=== PATIENT | female | born 1940 | race Caucasian/White ===

== ENCOUNTER 2016-11-19 13:12 | Inpatient (IN) ==
--- NOTE | 2016-11-19 13:19 | Emergency Department Note ---
Disposition Clinical Impression: Renal insufficiency Fall Qualifiers: Encounter type: initial encounter Qualified Code(s): W19.XXXA - Unspecified fall, initial encounter Disposition: Admitted As Inpatient Condition: Fair Referrals: Ross Resendez DO [Primary Care Provider] - Forms: ED Satisfaction Letter Time of Disposition: 16:11 Fall HPI - General Chief Complaint: ED Fall Stated Complaint: fall, down for 24hrs Time Seen by Provider: 11/19/16 13:15 Source: patient, EMS Mode of arrival: EMS Limitations: age, other Nursing Notes Reviewed: Yes Vital Signs Reviewed: Yes - History of Present Illness HPI Narrative: A 76-year-old was found on the floor today by home health home health was there yesterday left at noon today with back at noon today and found her on the floor. The patient is unable to tell us that she been on the floor all night or when exactly that she fell. She denies pain anywhere. Pt Subjective Complaint: fall Onset (ago): unknown Fall Witnessed: no Place Fall Occurred: home Loss of Consciousness: unsure Prolonged Down Time?: yes (Possibly up to 24 hours) Symptoms Prior to Fall: other (Unknown) Context: unknown Location of injury: other (Denies pain) Associated symptoms (after fall): Reports: denies - Related Data Home Medications Medication Instructions Recorded Confirmed Calcitriol [Rocaltrol] 0.5 mcg PO QAM 04/28/15 01/09/16 Doxepin [Sinequan] 100 mg PO HS 04/28/15 01/09/16 Duloxetine [Cymbalta] 30 mg PO BID 04/28/15 01/09/16 Ergocalciferol (VITAMIN D2) 50,000 unit PO QWEEK MDD unsure of 04/28/15 01/09/16 [Vitamin D2 (50,000 UNIT)] day HydrALAZINE 25 mg PO BID 04/28/15 01/09/16 Nitroglycerin [Nitrostat] 0.4 mg SL AD PRN 04/28/15 01/09/16 Pregabalin [Lyrica] 50 mg PO BID 04/28/15 01/09/16 Ranitidine HCl [Zantac] 150 mg PO BID 04/28/15 01/09/16 Furosemide [Lasix] 20 mg PO DAILY PRN 10/15/15 01/09/16 Mirabegron [Myrbetriq] 50 mg PO DAILY 10/15/15 01/09/16 Tolterodine Tartrate [Detrol] 1 mg PO BID 10/15/15 01/09/16 Ferrous Sulfate [Iron Supplement] 325 mg PO BID 12/23/15 01/09/16 Ipratropium/Albuterol Neb [Duoneb] 3 ml IH Q4HR PRN 12/23/15 01/09/16 Lactobacillus Acidophilus 1 cap PO BID 12/23/15 01/09/16 [Acidophilus] Losartan Potassium [Cozaar] 100 mg PO DAILY 12/23/15 01/09/16 Atorvastatin Calcium [Lipitor] 20 mg PO HS 05/14/16 05/14/16 Sennosides/Docusate Sodium 1 - 2 tab PO DAILY PRN 05/14/16 05/14/16 [Senna-S Tablet] Previous Rx's Medication Instructions Recorded Folic Acid 1 mg PO DAILY #30 tablet 01/10/16 Albuterol Sulfate [Albuterol 2 puff IH Q4HR #1 hfa.aer.ad 09/23/16 Inhaler] HYDROcodone/Acet 5/325 mg [[place] 1 tab PO Q6H PRN #10 tab 09/23/16 5-325 mg] Cyanocobalamin (B-12) [Vitamin B12] 1,000 mcg IM QMONTH #12 vial 11/18/16 Allergies Allergy/AdvReac Type Severity Reaction Status Date / Time clonazepam [From Klonopin] Allergy See Verified 10/15/15 16:47 Comments prasugrel [From Effient] Allergy See Verified 10/15/15 16:47 Comments All systems ED: reviewed and negative except as stated. Constitutional: Denies: fever, chills, weakness, weight change Eyes: Denies: eye pain, eye discharge, vision change ENT ED: Denies: ear pain, throat pain, dental pain, hearing loss, epistaxis, congestion, dysphagia Cardiovascular: Denies: chest pain, palpitations, dyspnea on exertion, edema, syncope Respiratory: Denies: cough, dyspnea, wheezes, hemoptysis, stridor Gastrointestinal: Denies: abdominal pain, nausea, vomiting, diarrhea, constipation, hematemesis, melena, hematochezia Genitourinary: Denies: dysuria, frequency, hematuria, discharge Musculoskeletal: Denies: back pain, neck pain, arthralgia, myalgia Integumentary: Denies: rash, abrasion, lesions Neurological: Denies: headache, weakness, numbness, paresthesias, confusion, abnormal gait, vertigo Psychiatric: Denies: anxiety, depression, suicidal thoughts, homicidal thoughts , auditory hallucinations, visual hallucinations Endocrine: Denies: fatigue Hematological/Lymphatic: Denies: easy bleeding, easy bruising Allergic/Immunologic: Denies: facial swelling, urticaria Fall PMH - Past Medical History Medical history: Reports: hypertension, osteoporosis, renal disease Surgical history: Reports: angioplasty/stent, appendectomy, hysterectomy, other Psychiatric history: Reports: anxiety, depression - Social History Smoking Status: Former smoker Alcohol use: Reports: rarely Drug use: Reports: none Physical Exam - General Limitations: other (Strip dementia not able to give us information other than she does not hurt.) General appearance: alert, in no apparent distress - Head Head exam: atraumatic, normocephalic, normal inspection - Eye Eye exam: Present: normal appearance, PERRL, EOMI - ENT ENT exam: normal exam, normal oropharynx, mucous membranes moist - Neck Neck exam: Present: normal inspection, full ROM, trachea midline - Chest Chest inspection: Present: normal inspection, symmetric chest wall rise - Respiratory Respiratory exam: Present: normal lung sounds bilaterally - Cardiovascular Cardiovascular exam: Present: regular rate, normal rhythm, normal heart sounds - Abdominal Exam Abdominal exam: Present: soft, Non-Tender. Absent: tenderness, distention, guarding, rebound, rigidity - Extremities Exam Extremities exam: Present: normal inspection, full ROM. Absent: tenderness, pedal edema - Expanded Lower Extremity Exam Neurovascular/Tendon exam: Absent: motor deficit, sensory deficit, tendon deficit Gait: observed and normal - Back Exam Back exam: Present: normal inspection, full ROM. Absent: tenderness - Neurological Exam Neurological exam: Present: alert, other (She is not oriented to time place or person) - Psychiatric Psychiatric exam: Present: normal affect, normal mood - Skin Skin exam: Present: warm, dry, intact, normal color Course - Reevaluation(s) Reevaluation #1: 76-year-old of a shunt with some dementia who lives by herself but does have home healthcare the comes in about 6 hours a day who fell yesterday sometime after home health left and they found her on the floor today. Unclear exactly how long she was there on the floor. Her CK is elevated in the 300s. Her creatinine is elevated but in the range of where it normally is. Patient will be admitted social service consult. IV hydration. Time: 16:12 - Consultations Consultation #1: Discussed with Dr. Chapin, admit. Time: 16:12 Vital Signs Temperature 97.5 F L 11/19/16 13:15 Pulse Rate 80 11/19/16 13:15 Respiratory Rate 20 11/19/16 13:15 Blood Pressure 176/117 11/19/16 13:15 O2 Sat by Pulse Oximetry 95 11/19/16 13:15 Temperature 97.5 F L 11/19/16 13:15 Pulse Rate 80 11/19/16 15:12 Respiratory Rate 18 11/19/16 15:12 Blood Pressure 134/86 11/19/16 15:12 O2 Sat by Pulse Oximetry 93 11/19/16 15:12 Oxygen Delivery Oxygen Delivery Room Air Fall - Lab Data Lab results reviewed: Yes I reviewed the patient's lab results. Result diagrams: 11/19/16 13:34 11/19/16 13:34 Lab Results 11/19/16 11/19/16 11/19/16 Range/Units 13:34 13:34 13:34 WBC 9.0 (4.3-11.1) K/mcL RBC 4.30 (3.82-4.97) M/mcL Hgb 13.3 (11.5-15.4) g/dL Hct 42.1 (35.3-44.9) % MCV 97.9 (83.0-100.0) fL MCH 30.9 (28.0-33.3) pg MCHC 31.6 (31.6-35.5) g/dL RDW 13.6 (11.5-14.5) % Plt Count 227 (140-400) K/mcL MPV 11.7 (9.4-12.4) fL Immature Gran % 0.6 (0-4) % Seg Neutrophils % 76.0 % Lymphocytes % 14.5 % Monocytes % 6.1 % Eosinophils % 2.2 % Basophils % 0.6 % Neutrophils # 6.8 (1.6-8.9) K/mcL Lymphocytes # 1.3 (0.6-4.6) K/mcL Monocytes # 0.6 (0.0-1.3) K/mcL Eosinophils # 0.2 (0.0-0.6) K/mcL Basophils # 0.1 (0.0-0.2) K/mcL Platelet Estimate Normal (Normal) Sodium 144 (136-145) mEq/L Potassium 4.4 (3.5-4.5) mEq/L Chloride 104 (98-109) mEq/L Carbon Dioxide 27 (19-29) mEq/L BUN 34 H (7-20) mg/dL Creatinine 2.86 H (0.57-1.11) mg/dL Est GFR ( Amer) 19 L (> 60) Est GFR (Non-Af Amer) 16 L (> 60) BUN/Creatinine Ratio 12 (6-26) Glucose 114 H (70-99) mg/dL Calculated Osmolality 306 H (280-300) Lactic Acid 2.0 (0.5-2.2) mmol/L Calcium 11.7 H (8.6-10.8) mg/dL Creatine Kinase (29-168) Units/L 11/19/16 Range/Units 13:34 WBC (4.3-11.1) K/mcL RBC (3.82-4.97) M/mcL Hgb (11.5-15.4) g/dL Hct (35.3-44.9) % MCV (83.0-100.0) fL MCH (28.0-33.3) pg MCHC (31.6-35.5) g/dL RDW (11.5-14.5) % Plt Count (140-400) K/mcL MPV (9.4-12.4) fL Immature Gran % (0-4) % Seg Neutrophils % % Lymphocytes % % Monocytes % % Eosinophils % % Basophils % % Neutrophils # (1.6-8.9) K/mcL Lymphocytes # (0.6-4.6) K/mcL Monocytes # (0.0-1.3) K/mcL Eosinophils # (0.0-0.6) K/mcL Basophils # (0.0-0.2) K/mcL Platelet Estimate (Normal) Sodium (136-145) mEq/L Potassium (3.5-4.5) mEq/L Chloride (98-109) mEq/L Carbon Dioxide (19-29) mEq/L BUN (7-20) mg/dL Creatinine (0.57-1.11) mg/dL Est GFR ( Amer) (> 60) Est GFR (Non-Af Amer) (> 60) BUN/Creatinine Ratio (6-26) Glucose (70-99) mg/dL Calculated Osmolality (280-300) Lactic Acid (0.5-2.2) mmol/L Calcium (8.6-10.8) mg/dL Creatine Kinase 310 H (29-168) Units/L - Radiology Data Radiology results reviewed: Yes I reviewed the patient's radiology results. Cervical Spine CT 11/19/16 13:16 IMPRESSION: No acute abnormality of the cervical spine. Multilevel degenerative changes, similar to prior exam. D/ / Silvino Avelar MD / Silvino Avelar MD Interpreting Provider: Silvino Avelar MD Chest X-Ray 11/19/16 13:16 IMPRESSION: No evidence for acute cardiopulmonary process. D/ / Silvino Avelar MD / Silvino Avelar MD Interpreting Provider: Silvino Avelar MD Head CT 11/19/16 13:16 IMPRESSION: No acute intracranial abnormality. Old craniotomy changes. D/ / 11/19/2016 15:26:24 Alaina Rees MD / johan Interpreting Provider: Alaina Rees MD - EKG Data EKG attestation: Yes I reviewed and interpreted this EKG. EKG shows normal: sinus rhythm Rate: normal Rhythm: NSR Voltage: c/w LVH Interpretation: nonspecific ST-T wave changes
[2016-11-19 13:47] LABS: Basophils # 0.1 K/mcL (0.0-0.2); Basophils % 0.6 %; Eosinophils # 0.2 K/mcL (0.0-0.6); Eosinophils % 2.2 %; Hematocrit 42.1 % (35.3-44.9); Hemoglobin 13.3 g/dL (11.5-15.4); Immature Granulocytes % 0.6 % (0-4); Lymphocytes # 1.3 K/mcL (0.6-4.6); Lymphocytes % 14.5 %; Mean Corpuscular HGB Conc 31.6 g/dL (31.6-35.5); Mean Corpuscular Hemoglobin 30.9 pg (28.0-33.3); Mean Corpuscular Volume 97.9 fL (83.0-100.0); Mean Platelet Volume 11.7 fL (9.4-12.4); Monocytes # 0.6 K/mcL (0.0-1.3); Monocytes % 6.1 %; Neutrophils # 6.8 K/mcL (1.6-8.9); Platelet Count 227 K/mcL (140-400); Red Cell Distribution Width 13.6 % (11.5-14.5)
[2016-11-19 14:00] LABS: Calcium 11.7 mg/dL (8.6-10.8); Potassium 4.4 mEq/L (3.5-4.5)
[2016-11-19 14:13] LABS: Platelet Estimate Normal (Normal)
[2016-11-19] MEDS ORDERED: 0.9 % Sodium Chloride 1,000 ML IVC SCH (16:15)
--- NOTE | 2016-11-19 17:09 | Internal Med History&Physical ---
Date of Encounter: 11/19/16 Time of Encounter: 16:45 Assessment and Plan (1) Fall Current visit: No Status: Acute Patient was found in floor this morning by home health nurse. It is unknown how long she had been on the floor. Being found. CK is 310. Patient has no apparent injuries. Head CT and a CT spine, and femur x-ray on negative for acute injury. Daughter is aware that patient most likely will have to go back to the long term. She has not made a decision yet as to which one. PT, OT consult Fall precautions Social work consult for discharge planning Patient close to the nurses station Echocardiogram to evaluate for possible syncope. Repeat CK in the morning. Qualifiers: Encounter type: initial encounter Qualified Code(s): W19.XXXA - Unspecified fall, initial encounter (2) Weight loss Current visit: Yes Status: Acute Daughter reports that patient has had approximately 10 pound weight loss over the last 3 weeks. She states that patient feels full all the time and is not eating. Patient is being weighed twice a week by home health. Consult nutrition Consider appetite stimulant CT abdomen pelvis (3) FTT (failure to thrive) in adult Current visit: Yes Status: Acute Plan as above for fall and weight loss. (4) Altered mental status, unspecified Current visit: Yes Status: Chronic Daughter reports the patient has a history of dementia. She states that patient has been hallucinating. She was found on the floor this morning by her home health nurse. Unsure how long patient had been there. She does arouse to verbal stimuli, however, she only arouses briefly and does not answer questions. Daughter states that she has spoken to her briefly but appears to be confused. Qualifiers: Altered mental status type: unspecified Qualified Code(s): R41.82 - Altered mental status, unspecified (5) CKD (chronic kidney disease) stage 4, GFR 15-29 ml/min Current visit: Yes Status: Chronic Creatinine is 2.6, GFR 16. This is baseline for this patient for this year. IV fluids at 75 ml per hour 0.9 normal saline Avoid nephrotoxins Avoid NSAIDs Monitor labs in the morning (6) Murmur, heart Current visit: No Status: Chronic (7) COPD (chronic obstructive pulmonary disease) Current visit: No Status: Chronic No acute exacerbation at this time. Chest x-ray negative for any acute disease. Lungs are clear anteriorly. Room air sats 95% Duonebs scheduled Budesonide nebs scheduled Monitor patient O2 as needed to maintain sats greater than 92% Qualifiers: COPD type: emphysema Emphysema type: unspecified Qualified Code(s): J43.9 - Emphysema, unspecified (8) CAD (coronary artery disease) Current visit: No Status: Chronic Chronic. Continue aspirin and beta sole. Telemetry Qualifiers: Coronary Disease-Associated Artery/Lesion type: [place] artery [place] vs. transplanted heart: rosebud heart Associated angina: without angina Qualified Code(s): I25.10 - Atherosclerotic heart disease of [place] coronary artery without angina pectoris (9) Hypertension Current visit: No Status: Chronic Chronic. Well controlled in inpatient setting. Continue home medications. Vital signs every shift Qualifiers: Hypertension type: essential hypertension Qualified Code(s): I10 - Essential (primary) hypertension (10) DVT prophylaxis Current visit: No Status: Acute Heparin subcutaneous MIQUEL velazco Internal Medicine - H&P: HPI Admitted From: Home Plans for Post Hospital Care: Transfer [facility] Care History of present illness: Ms. Benavides is a 76 year old female with a history of a heart murmur, COPD, CKD, CAD, craniotomy due to head bleed, hypertension. Patient was found in the floor today by home health nurse. Daughter was at bedside and relates all of history. She said that patient has insomnia stays up most of the night. Patient had a femur x-ray CT of the C-spine and head CT were all negative for acute injury. Patient does not appear to have any bruising or injuries immediately apparent. Patient is drowsy but awakens very briefly to verbal stimuli and then falls immediately back to sleep. Monitor is normal sinus rhythm with occasional PVCs rate 82 [place] is 95% on room air, respirations are 20, blood pressure is 123/80. Patient has been going to the cancer Center recently for B12 infusions, and was told that if she did not start feeling better and her labs improved, she was going to have a bone marrow biopsy. Daughter says that she will not consent to that. Daughter reports for the last couple of months patient has been declining mentally and has been having hallucinations. She says it patient constantly feels full and is not eating as much, she has had a 3 pound weight loss every week for the last 3 weeks. She does have home health and is being followed closely by them and at the cancer center. Past Med Surg Social Fam HX - Past Medical History Medical history: hypertension, osteoporosis, renal disease Psychiatric history: anxiety, depression - Past Surgical History Surgical History: angioplasty/stent, appendectomy, hysterectomy, other - Social History Smoking Status: Former smoker Smokeless Tobacco Status: No Alcohol use: rarely Drug use: none Internal Medicine - H&P: Meds Calcitriol [Rocaltrol] 0.5 mcg PO QAM 04/28/15 [History] Ergocalciferol (VITAMIN D2) [Vitamin D2 (50,000 UNIT)] 50,000 unit PO QWEEK [History] HydrALAZINE 25 mg PO BID 04/28/15 [History] Nitroglycerin [Nitrostat] 0.4 mg SL Q5M PRN 04/28/15 [History] Pregabalin [Lyrica] 50 mg PO BID 04/28/15 [History] Ranitidine HCl [Zantac] 150 mg PO BID 04/28/15 [History] Tolterodine Tartrate [Detrol] 1 mg PO BID 10/15/15 [History] Ipratropium/Albuterol Neb [Duoneb] 3 ml IH Q4HR PRN 12/23/15 [History] Lactobacillus Acidophilus [Acidophilus] 1 cap PO BID 12/23/15 [History] Losartan Potassium [Cozaar] 100 mg PO DAILY 12/23/15 [History] Folic Acid 1 mg PO DAILY #30 tablet 01/10/16 [Rx] Albuterol Sulfate [Albuterol Inhaler] 2 puff IH Q4HR #1 hfa.aer.ad 09/23/16 [Rx] Cyanocobalamin (B-12) [Vitamin B12] 1,000 mcg IM QMONTH #12 vial 11/18/16 [Rx] Aspirin Enteric Coated [Aspirin EC] 81 mg PO DAILY 11/19/16 [History] Budesonide/Formoterol 160/4.5 [Symbicort 160/4.5] 2 puff IH BIDR 11/19/16 [ History] Metoprolol XL (24 HR) Succ [Toprol XL] 25 mg PO DAILY 11/19/16 [History] Mirtazapine [Remeron] 15 mg PO HS 11/19/16 [History] Oxygen 1 each .ROUTE AD 11/19/16 [History] Simvastatin [Zocor] 40 mg PO HS 11/19/16 [History] Tizanidine HCl 4 mg PO HS PRN 11/19/16 [History] Venlafaxine HCl [Venlafaxine HCl ER] 75 mg PO DAILY 11/19/16 [History] Allergies clonazepam [From Klonopin] Allergy (Verified 10/15/15 16:47) See Comments unsure of reaction prasugrel [From Effient] Allergy (Verified 10/15/15 16:47) See Comments Brain hermorrhage ROS unobtainable: due to mental status All Systems PM: A 10-system review of systems was performed and is negative for pertinent findings except as documented above in the HPI. - Constitutional Constitutional: falls, weakness, weight loss, no fever(s) Additional comments: Daughter reports at least 9-10 pound weight loss in the last month. - Gastrointestinal Gastrointestinal: early satiety - Integumentary Integumentary IM: no non-healing lesions, no rash - Neurological Neurological ROS: behavioral changes, confusion - Psychiatric Psychiatric: abnormal sleep pattern, behavioral changes, change in appetite, hallucinations - Constitutional Vitals: Temp Pulse Resp BP Pulse Ox 97.5 F L 80 20 146/109 93 11/19/16 13:15 11/19/16 15:12 11/19/16 16:41 11/19/16 16:41 11/19/16 15:12 General appearance: Present: no acute distress. Absent: answers questions appropriately - Head Head exam: Present: normal inspection - Eye Eye exam: Present: normal appearance, conjuntiva pink. Absent: periorbital swelling - ENT ENT exam: Present: mucous membranes dry, normal external ear exam - Neck Neck exam general surgery: Present: normal inspection. Absent: lymphadenopathy , thyromegaly - Respiratory Respiratory exam: Absent: accessory muscle use, respiratory distress, rhonchi, wheezes - Cardiovascular Cardiovascular exam: Present: RRR. Absent: bradycardia, tachycardia Additional comments: Murmur heard. History of murmur. - Expanded Cardiovascular Exam Peripheral pulses: 2+: Dorsalis Pedis (L) PM, Dorsalis Pedis (R) PM - GI/Abdominal GI/Abdominal exam: Present: soft. Absent: distended, firm, hepatomegaly, mass - Extremities Exam Extremities exam: Present: normal capillary refill, normal inspection, warm, radial pulses palpable and symetrical. Absent: pedal edema - Neurological Exam Neurological exam: Present: altered Internal Med - H&P Results - Labs CBC & Chem 7: 11/19/16 13:34 11/19/16 13:34
[2016-11-19] MEDS ORDERED: Ondansetron 4 MG/2 ML VIAL IVP PRN (17:23)
[2016-11-19] MEDS ORDERED: Acetaminophen 325 MG TABLET PO PRN (17:23)
[2016-11-19] MEDS ORDERED: MOM Conc 10 ML UD.LIQ PO PRN (17:23)
[2016-11-19] MEDS ORDERED: Naloxone 0.4 MG/ML INJ IVP PRN (17:23)
[2016-11-19] MEDS ORDERED: Cyanocobalamin (B-12) 1,000 MCG TABLET PO SCH (17:30)
[2016-11-19] MEDS ORDERED: NON-FORMULARY MEDICATION 1 EACH EACH (Oxygen [Oxygen] 1 EACH) SCH (17:30)
[2016-11-19] MEDS ORDERED: Metoprolol XL (24 HR) Succ 25 MG TAB.ER.24H PO STA (18:44)
[2016-11-19] MEDS: hydrALAZINE 25 MG TABLET PO SCH (18:49)
[2016-11-19] MEDS ORDERED: hydrALAZINE 25 MG TABLET PO ONE (18:49)
[2016-11-19] MEDS: 0.9 % Sodium Chloride 1,000 ML IVC SCH (18:50)
[2016-11-19] MEDS: Famotidine 20 MG TABLET PO SCH (18:50)
[2016-11-19] MEDS: *HR* Heparin 5,000 UNIT/ML VIAL SQ SCH (18:50)
[2016-11-19] MEDS ORDERED: Mirtazapine 15 MG TABLET PO SCH (21:00)
[2016-11-19] MEDS: Ipratropium/Albuterol Neb 3 ML IH SCH (22:55)
[2016-11-20] MEDS: Lactobacillus 1 EACH CAP.SPRINK PO SCH ×3 (02:26→21:06)
[2016-11-20] MEDS: Ipratropium/Albuterol Neb 3 ML IH SCH ×4 (04:37→21:53)
[2016-11-20] MEDS: *HR* Heparin 5,000 UNIT/ML VIAL SQ SCH ×2 (04:47→17:24)
[2016-11-20 05:45] LABS: Basophils % 0.5 %; Eosinophils # 0.2 K/mcL (0.0-0.6); Eosinophils % 2.7 %; Hematocrit 35.3 % (35.3-44.9); Immature Granulocytes % 0.4 % (0-4); Lymphocytes # 2.2 K/mcL (0.6-4.6); Lymphocytes % 27.9 %; Mean Corpuscular HGB Conc 32.3 g/dL (31.6-35.5); Mean Corpuscular Hemoglobin 31.6 pg (28.0-33.3); Mean Corpuscular Volume 97.8 fL (83.0-100.0); Mean Platelet Volume 11.4 fL (9.4-12.4); Monocytes # 0.7 K/mcL (0.0-1.3); Monocytes % 8.7 %; Neutrophils # 4.7 K/mcL (1.6-8.9); Platelet Count 221 K/mcL (140-400); Red Blood Count 3.61 M/mcL (3.82-4.97); Red Cell Distribution Width 13.9 % (11.5-14.5); Segmented Neutrophils % 59.8 %
[2016-11-20 05:48] LABS: Calcium 10.2 mg/dL (8.6-10.8); Potassium 4.2 mEq/L (3.5-4.5)
[2016-11-20 05:51] LABS: Hemoglobin 11.4 g/dL (11.5-15.4)
--- NOTE | 2016-11-20 08:00 | ECHO - Doppler Report ---
Echocardiogram Name: Anjelica Benavides Date of Study: 11/19/2016 Date: 1940 Ht: 63.0 in Medical Record#: [id number] Age: 76 Wt: 175.0 lb Gender: Female BSA: 1.83 Order #: [id number] Location: [facility] Room #: [id number] Reading Physician: Vladimir Avila DO, [facility] Double Surface Operator: Evelia Valderrama Ordering Physician: Lyla Mohamud CNP Primary Physician: Ross Resendez DO Indications: Fall, Possible syncope Impressions: LVEF >70%. Normal LV chamber size and hyperdynamic function. Severe asymmetric hypertrophy of the basal septum. Systolic anterior motion of the mitral valve leaflets with evidence of a severe outflow tract obstruction by Doppler analysis. Mild left ventricular diastolic dysfunction. Moderately dilated left atrium. Normal right ventricular structure and function. Aortic valve not well visualized; the number of leaflets cannot be determined. There is at least mild calcification. Concomitant aortic stenosis in addition to subvalvular LVOT obstruction cannot be excluded. In one short axis view, aortic valve excursion does not appear significantly restricted. Mild aortic regurgitation. No evidence of pulmonary hypertension. Findings can be a cause of syncope. Consider cardiology consultation. Recommend a repeat study with attention to LVOT and AV after therapy (fluids, negative chronotropic agents such as beta blockers if indicated). Left Ventricular Wall Motion: Rest Echo Findings All wall segments showed normal motion. Findings: Study Quality * Technically sub-optimal due to poor echocardiographic windows. ECG Findings * Normal sinus rhythm. Left Ventricle * LVEF >70%. * Normal LV chamber size and hyperdynamic function. * Severe asymmetric hypertrophy of the basal septum. Systolic anterior motion of the mitral valve leaflets with evidence of a severe outflow tract obstruction by Doppler analysis. * Mild left ventricular diastolic dysfunction. Right Ventricle * Normal right ventricular structure and function. Left Atrium * Moderately dilated left atrium. Right Atrium * Mildly dilated right atrium. Interatrial Septum * No evidence of PFO by color Doppler. Aortic Valve * Aortic valve not well visualized; the number of leaflets cannot be determined. There is at least mild calcification. * Concomitant aortic stenosis in addition to subvalvular LVOT obstruction cannot be excluded. In one short axis view, aortic valve excursion does not appear significantly restricted. * Mild aortic regurgitation. Mitral Valve * Normal mitral valve structure. * No mitral regurgitation. * No mitral stenosis. Tricuspid Valve * Normal tricuspid valve structure and function. * Trace tricuspid regurgitation. * No evidence of pulmonary hypertension. Pulmonic Valve * Normal pulmonic valve structure and function. * No pulmonic regurgitation. Aorta * Normally sized aortic root. Pericardium * The pericardium appears normal. IVC * Normal IVC dimensions and inspiratory collapse. Pulmonary Artery * Normal visualized portions of the main pulmonary artery. History Hypertension History of CAD/PTCA Valvular Disease 04/29/2015 a Previous Echo was performed. Measurements: BP: 187/ 85 2D Normal Values RVIDd: 2.90 cm <2.7 cm IVSd: 1.80 cm 0.6 - 1.0 cm LVIDd: 4.20 cm 3.7 - 5.6 cm LVPWd: 1.40 cm 0.6 - 1.1 cm LVIDs: 2.40 cm 1.5 - 3.6 cm AO: 3.00 cm < 4.0 cm LA: 3.60 cm 2.0 - 4.0cm %FS: 42.90 cm >25 % LVOT Diam: 1.70 cm LA volume: 85 Mitral Valve Peak E:.75 m/sec Peak A:1.28 m/sec E/A Ratio:0.6 Peak E' Lat Chris:8.29 cm/s Peak E' Med Chris:2.92 cm/s E/E' Lat Ratio:9 E/E' Med Ratio:25.7 LVOT Peak Chris:5.01 m/sec Mean Chris:3.50 m/sec Peak Grad:100.00 mmHg Mean Grad:59.00 mmHg Aortic Valve Peak Chris:7.53 m/sec Mean Chris:5.63 m/sec Peak Grad:227.00 mmHg Mean Grad:142.00 mmHg Valve Area:1.26 cm2 Tricuspid Valve TV Regurg Peak Grad: 29.00mmHg TV Regurg Peak Chris: 2.71m/sec Updated by Vladimir Avila DO, SANDY, SANTOSH BYRNE on 11/20/2016 7:41:12 AM electronically signed on 11/20/2016 7:55:20 AM with status of Final Wall Motion [place]: 1=Normal, 2=Hypokinesis, 3=Akinesis, 4=Dyskinesis, 5=Aneurysmal, 6=Hyperkinetic, X=Not Visualized (Blank)=Missing
[2016-11-20] MEDS: hydrALAZINE 25 MG TABLET PO SCH ×2 (08:30→21:06)
[2016-11-20] MEDS: Aspirin Enteric Coated 81 MG Tablet PO SCH (08:30)
[2016-11-20] MEDS: Folic Acid 1 MG TABLET PO SCH (08:30)
[2016-11-20] MEDS: Venlafaxine XR (24 HR) 75 MG CAP.ER.24H PO SCH (08:30)
[2016-11-20] MEDS ORDERED: Metoprolol XL (24 HR) Succ 25 MG TAB.ER.24H PO SCH (09:00)
--- NOTE | 2016-11-20 09:52 | Internal Med Progress Note ---
Date of Encounter: 11/20/16 Time of Encounter: 09:15 - Assessment and plan (1) Fall Current Visit: No Status: Acute Assessment and plan: CK is decreasing today, 214. Was 310 on arrival yesterday. Echocardiogram was done yesterday. LVEF greater than 70%, normal LV chamber size and function. There is severe asymmetric hypertrophy of the basal septum, systolic anterior motion of mitral valve with evidence of severe outflow tract obstruction. Mild diastolic dysfunction. Moderately dilated left atrium. Aortic valve not well visualized with some mild calcification. Concomitant aortic stenosis cannot be excluded. Mild aortic regurgitation and no evidence of pulmonary hypertension. These findings can be a cause of syncope and cardiology has been consulted. Troponins are slightly elevated at 0.08 this morning. PT/OT consults pending Patient is on fall precautions Social work consult for discharge planning. Qualifiers: Encounter type: initial encounter Qualified Code(s): W19.XXXA - Unspecified fall, initial encounter (2) Weight loss Current Visit: Yes Status: Acute Assessment and plan: Daughters reported the patient has approximately 10 pound weight loss in last 3 weeks. She says that she has early satiety and is not eating well. She is being followed by home health for this condition. Primary nurses this morning patient barely ate any of her breakfast. This could be part of failure to thrive, however, I was concerned for potential ovarian cancer or other abdominal process. CT scan was obtained. There is an indeterminate low attenuation foci noted in the liver. Solid lesion cannot be excluded. Recommend further evaluation with MRI which was ordered this morning and pending. MRI results pending Consult nutrition Discuss appetite stimulant with family when they are present (3) FTT (failure to thrive) in adult Current Visit: Yes Status: Acute Assessment and plan: Plan as above (4) Altered mental status, unspecified Current Visit: Yes Status: Chronic Assessment and plan: Patient remains very drowsy today. She does open her eyes to verbal and smiles. She says that she feels fine. She is exceptionally drowsy and does not stay awake to answer more than one question at a time. Head CT was negative yesterday except for prior craniotomy changes. Urinalysis was not ordered yesterday in the emergency department or at admission. I have ordered a UA with reflex micro and culture. Chest x-ray yesterday in the emergency department shows the lungs are clear and there is no acute cardiopulmonary process. CT abdomen that was done yesterday also shows tree in bud type opacities in right middle lobe could reflect an infectious or inflammatory process. We will need to continue to monitor this. Currently her vital signs are stable. She has no leukocytosis. She has poor inspiratory effort however lungs are clear to auscultation anteriorly and laterally. Urine and urine culture results are pending Plan as above for fall precautions Qualifiers: Altered mental status type: unspecified Qualified Code(s): R41.82 - Altered mental status, unspecified (5) CKD (chronic kidney disease) stage 4, GFR 15-29 ml/min Current Visit: Yes Status: Chronic Assessment and plan: Creatinine is 2.59 GFR is 18 today. This still remains baseline. Continue IV fluids, 0.9 normal saline at 75 mL's per hour Avoid nephrotoxins and NSAIDS Continue to monitor labs (6) Murmur, heart Current Visit: No Status: Chronic (7) COPD (chronic obstructive pulmonary disease) Current Visit: No Status: Chronic Assessment and plan: No exacerbation. Continue to monitor sats and vitals. Qualifiers: COPD type: emphysema Emphysema type: unspecified Qualified Code(s): J43.9 - Emphysema, unspecified (8) CAD (coronary artery disease) Current Visit: No Status: Chronic Assessment and plan: Chronic. Continue aspirin and beta sole. Patient is unable to answer if she has chest pain. Troponins elevated overnight. Currently 0.08 Cardiology has been consulted. Qualifiers: Coronary Disease-Associated Artery/Lesion type: [place] artery [place] vs. transplanted heart: [place] heart Associated angina: without angina Qualified Code(s): I25.10 - Atherosclerotic heart disease of [place] coronary artery without angina pectoris (9) Hypertension Current Visit: No Status: Chronic Assessment and plan: Chronic. Continue medications. Continue to monitor vital signs. Qualifiers: Hypertension type: essential hypertension Qualified Code(s): I10 - Essential (primary) hypertension (10) DVT prophylaxis Current Visit: No Status: Acute Assessment and plan: Subcutaneous heparin. MIQUEL velazco. (11) Abdominal aortic aneurysm (AAA) 3.0 cm to 5.0 cm in diameter in female Current Visit: Yes Status: Chronic Assessment and plan: Patient has a infrarenal abdominal aortic aneurysm measuring 3.2 packs 3.3 cm. Is also noted on an image from 11/12/2015. According to radiology guidelines, it will need to be followed up in 3 years. - Time Spent With Patient less than 15 minutes - Subjective Interval history: Patient remains drowsy today. She is easily arousable to verbal stimuli, however, she does not stay awake to answer more than 1 question. UA with reflex micro-and culture has been ordered and pending. She has a concerning result on her abdomen CT a low attenuation foci to the liver. Solid lesion cannot be excluded. MRI was ordered to evaluate. Chest x-ray was negative, however there is a tree-in-bud type opacity in right middle lobe could represent an infectious or inflammatory process. We will continue to monitor. Patient is unable to state whether she has chest pain or not. She had an echocardiogram that indicated that syncope could be cardiac in nature. Troponins were also elevated 0.08 this morning. Cardiology has been consulted. - Constitutional Vitals: Temp Pulse Resp BP Pulse Ox 97.5 F L 79 16 136/76 96 11/20/16 07:35 11/20/16 07:35 11/20/16 07:35 11/20/16 07:35 11/20/16 07:35 General appearance: Present: A&O X 1, no acute distress. Absent: answers questions appropriately - Head Head exam: Present: normal inspection - Eye Eye exam: Present: normal appearance, conjuntiva pink - ENT ENT exam: Present: mucous membranes moist, normal exam, normal external ear exam - Neck Neck exam general surgery: Present: normal inspection, tenderness. Absent: lymphadenopathy - Respiratory Respiratory exam: Present: decreased breath sounds, CTAB. Absent: respiratory distress - Cardiovascular Additional comments: 3/6 murmur heard L sternal border - GI/Abdominal GI/Abdominal exam: Present: normal bowel sounds, soft. Absent: hepatomegaly, mass, rigid, tenderness - Extremities Exam Extremities exam: Present: warm, radial pulses palpable and symetrical. Absent : pedal edema, tenderness - Neurological Exam Neurological exam: Present: altered, speech deficit. Absent: oriented X3, facial droop Internal Medicine: Result - Labs CBC & Chem 7: 11/20/16 05:25 11/20/16 05:25 Labs: Short CBC 11/20/16 Range/Units 05:25 WBC 7.8 (4.3-11.1) K/mcL Hgb 11.4 L D (11.5-15.4) g/dL Hct 35.3 (35.3-44.9) % Plt Count 221 (140-400) K/mcL Neutrophils # 4.7 (1.6-8.9) K/mcL BMP 11/20/16 05:25 Sodium 145 Potassium 4.2 Chloride 111 H Carbon Dioxide 27 BUN 30 H Creatinine 2.59 H Glucose 99 Calcium 10.2 Cardiac Enzymes 11/19/16 11/20/16 Range/Units 23:51 05:25 Troponin I 0.07 H* 0.08 H* (0-0.03) ng/mL - Impressions Impressions Abdomen CT 11/19/16 17:39 IMPRESSION: No acute findings are seen to the abdomen. Indeterminate low-attenuation foci noted to the liver with the largest focus measuring 3.2 x 2.4 cm with attenuation characteristics borderline fluid attenuation. Solid lesion cannot be excluded. Further evaluation with MRI with and without contrast recommended. Tree-in-bud type opacities to visualized right middle lobe concerning for a nonspecific infectious or inflammatory process. Continued follow-up recommended. Atherosclerosis along with aneurysmal dilatation of both ascending and descending visualized thoracic aorta as above. There is also evidence for infrarenal abdominal aortic aneurysm measuring 3.2 x 3.3 cm. Reference management guidelines below for abdominal aortic aneurysm. There is some high attenuation foci identified associated with the wall of the gallbladder, some of which are nondependent. These are nonspecific and could reflect some stones or appearance sludge balls or polyps. Consider further evaluation with ultrasound. Colonic diverticulosis without findings for diverticulitis. RECOMMENDATIONS: Managing Abdominal Aortic Aneurysms 2.6-2.9 cm: 5 year follow up. 3.0-3.4 cm: 3 year follow up 3.5-3.9 cm: 1 year follow up. 4.0-4.4 cm: 1 year follow up. Recommend vascular consultation. 4.5-5.4 cm: 6 month follow up. Recommend vascular consultation. Greater than or equal to 5.5 cm: Referral to vascular surgeon. Reference: Inderjit et al. The care of patients with an abdominal aortic aneurysm: The Society of Vascular Surgery practice guidelines. Journal of Vascular Surgery. Vol 50, Number 85. Douglas et al. Managing Incidental Findings on Abdominal and Pelvic CT and MRI, Part 2: White Paper of the ACR Incidental Findings Committee II on Vascular Findings. J Am Mirtha Radiol 2013;10:789-794 D/ / 11/19/2016 19:07:13 Silvino Avelar MD / perla Interpreting Provider: Silvino Avelar MD Consult Discharge Plan - Plan Referrals: Ross Resendez DO [Primary Care Provider] -
--- NOTE | 2016-11-20 12:50 | Cardiology Consult Note ---
Date of Encounter: 11/20/16 Time of Encounter: 12:00 Assessment and Plan (1) Left ventricular outflow tract obstruction Current Visit: Yes Status: Acute TTE 11/20/16: LVEF >70%, SHAUNA with severe LVOT. LVOT likely worsened by recent poor po intake and weight loss over the past few weeks, may have caused syncopal episode. Agree with and continue IVF. Continue betablocker to minimize HR and LVOT obstruction. Avg HR=82, no significant pause/event. Will increase to 50 mg daily. Avoid diuretics. (2) Troponin level elevated Current Visit: No Status: Acute Mild troponin elevation in the setting of fall and CKD; likely secondary to demand ischemia. Continue conservative medical management with asa, statin, and betablocker. Discussion w patient/family: The assessment and plan as outlined above was discussed with the patient and/or family members who expressed understanding and agreement. All questions were answered. Thank you for involving us in the care of your patient. Please call with any questions. The patient will be discussed and reviewed with Dr. Elizabeth Steele; changes to be made accordingly. History of Present Illness Consult date: 11/20/16 Requesting physician: Lyla Mohamud Consult reason: Elevated troponin Chief complaint: AMS, fall History of present illness: Ms. Benavides is a 76 year old female with PMH significant for CAD s/p PCI to RCA in 2010, AAA (3.1 cm, U/S 11/2015), CKD, MGUS, dementia, and hypertensive heart disease. 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 She required a prolonged stay at [facility] and received a temporay tracheostomy. She is confused upon exam--reportedly presented to the ED after fall after being found down for unknown amount of time. Per reports from family , patient has dementia and has been hallucinating, not eating or drinking, and has lost several pounds within the past few weeks. Previous testing: [facility] 2011: mild, non-obstructive CAD with patent RCA stent. Echocardiogram 04/29/2015: EF 65%. Mild to moderate concentric LVH. Systolic anterior motion of the mitral valve leaflets. Mild outflow tract gradient, 12 mmHg. Mild tomoderate AI. Mild diastolic dysfunction. Past Med Surg Social Fam HX - Past Medical History Source: old records reviewed Medical history: coronary artery disease, hypertension, osteoporosis, renal disease Psychiatric history: anxiety, depression - Past Surgical History Surgical History: angioplasty/stent, appendectomy, hysterectomy - Social History Smoking Status: Former smoker Smokeless Tobacco Status: No Alcohol use: rarely Drug use: none Medications and Allergies Calcitriol [Rocaltrol] 0.5 mcg PO QAM 04/28/15 [History] Ergocalciferol (VITAMIN D2) [Vitamin D2 (50,000 UNIT)] 50,000 unit PO QWEEK [History] HydrALAZINE 25 mg PO BID 04/28/15 [History] Nitroglycerin [Nitrostat] 0.4 mg SL Q5M PRN 04/28/15 [History] Pregabalin [Lyrica] 50 mg PO BID 04/28/15 [History] Ranitidine HCl [Zantac] 150 mg PO BID 04/28/15 [History] Tolterodine Tartrate [Detrol] 1 mg PO BID 10/15/15 [History] Ipratropium/Albuterol Neb [Duoneb] 3 ml IH Q4HR PRN 12/23/15 [History] Lactobacillus Acidophilus [Acidophilus] 1 cap PO BID 12/23/15 [History] Losartan Potassium [Cozaar] 100 mg PO DAILY 12/23/15 [History] Folic Acid 1 mg PO DAILY #30 tablet 01/10/16 [Rx] Albuterol Sulfate [Albuterol Inhaler] 2 puff IH Q4HR #1 hfa.aer.ad 09/23/16 [Rx] Cyanocobalamin (B-12) [Vitamin B12] 1,000 mcg IM QMONTH #12 vial 11/18/16 [Rx] Aspirin Enteric Coated [Aspirin EC] 81 mg PO DAILY 11/19/16 [History] Budesonide/Formoterol 160/4.5 [Symbicort 160/4.5] 2 puff IH BIDR 11/19/16 [ History] Metoprolol XL (24 HR) Succ [Toprol XL] 25 mg PO DAILY 11/19/16 [History] Mirtazapine [Remeron] 15 mg PO HS 11/19/16 [History] Oxygen 1 each .ROUTE AD 11/19/16 [History] Simvastatin [Zocor] 40 mg PO HS 11/19/16 [History] Tizanidine HCl 4 mg PO HS PRN 11/19/16 [History] Venlafaxine HCl [Venlafaxine HCl ER] 75 mg PO DAILY 11/19/16 [History] Allergies clonazepam [From Klonopin] Allergy (Verified 10/15/15 16:47) See Comments unsure of reaction prasugrel [From Effient] Allergy (Verified 10/15/15 16:47) See Comments Brain hermorrhage ROS unobtainable: due to mental status All Systems Review: A 10-system review of systems was performed and is negative for pertinent findings except as documented above in the HPI. - Cardiovascular Cardiovascular: as per HPI Physical Examination Vital Signs, Last 4 Hours Temp Pulse Resp BP Pulse Ox 11/20/16 11:04 18 98 11/20/16 10:35 98.2 F 69 18 113/69 92 General: Conversant (confused, alert to self only. ), No Apparent Distress Cardiac: Reg Rate and Rhythm, Normal S1 and S2 Lungs: Normal Breath Sounds Neuro: Alert and responsive (alert to self only. ) Abdomen: Soft Skin: No rashes noted on visualized skin Musculoskeletal: No Chest Wall Tenderness Extremities: No Edema, Normal Pulses Results 11/20/16 05:25 11/20/16 05:25 Lab Results 11/19/16 11/20/16 11/20/16 23:51 05:25 05:25 WBC 7.8 Hgb 11.4 L D Hct 35.3 Plt Count 221 Sodium 145 Potassium 4.2 Chloride 111 H Carbon Dioxide 27 BUN 30 H Creatinine 2.59 H Glucose 99 Calcium 10.2 Troponin I 0.07 H* 11/20/16 05:25 WBC Hgb Hct Plt Count Sodium Potassium Chloride Carbon Dioxide BUN Creatinine Glucose Calcium Troponin I 0.08 H* Active Medications Acetaminophen (Tylenol) 650 mg PO Q6HR PRN PRN Reason: Mild Pain (1-3) Stop: 05/21/17 17:24 Albuterol/Ipratropium (Duoneb) 3 ml IH [id number] SEVEN PRN Reason: Protocol Stop: 05/21/17 22:01 Last Admin: 11/20/16 11:03 Dose: 3 ml Aspirin (Aspirin Ec) 81 mg PO DAILY [facility] Stop: 05/22/17 09:01 Last Admin: 11/20/16 08:30 Dose: 81 mg Calcitriol (Rocaltrol) 0.5 mcg PO QAM SEVEN Stop: 05/22/17 09:01 Last Admin: 11/20/16 08:30 Dose: 0.5 mcg Cyanocobalamin (Vitamin B12) 1,000 mcg PO QMONTH SEVEN Stop: 05/21/17 17:31 Last Admin: 11/19/16 18:50 Dose: 1,000 mcg Docusate Sodium (Colace) 100 mg PO BID SEVEN Stop: 05/21/17 21:01 Last Admin: 11/20/16 08:30 Dose: 100 mg Ergocalciferol (Drisdol (50,000 Unit)) 50,000 unit PO QWEEK SEVEN Stop: 05/21/17 17:31 Last Admin: 11/20/16 02:25 Dose: Not Given Famotidine (Pepcid) 20 mg PO Q48H SEVEN Stop: 05/21/17 09:01 Last Admin: 11/19/16 18:50 Dose: 20 mg Folic Acid (Folic Acid) 1 mg PO DAILY SEVEN Stop: 05/22/17 09:01 Last Admin: 11/20/16 08:30 Dose: 1 mg Heparin Sodium (Porcine) (Heparin) 5,000 unit SQ Q12HCO SEVEN Stop: 05/21/17 18:01 Last Admin: 11/20/16 04:47 Dose: 5,000 unit Hydralazine HCl (Hydralazine) 25 mg PO BID SEVEN Stop: 05/21/17 21:01 Last Admin: 11/20/16 08:30 Dose: 25 mg Sodium Chloride (0.9 % Sodium Chloride) 1,000 mls @ 75 mls/hr IVC .[id number] SEVEN Stop: 05/21/17 17:25 Last Admin: 11/19/16 18:50 Dose: 75 mls/hr Lactobacillus Acidophilus/Rhamnosus (Culturelle) 1 each PO BID SEVEN Stop: 05/21/17 21:01 Last Admin: 11/20/16 08:30 Dose: 1 each Losartan Potassium (Cozaar) 100 mg PO DAILY SEVEN Stop: 05/22/17 09:01 Last Admin: 11/20/16 08:30 Dose: 100 mg Magnesium Hydroxide (Milk Of Magnesia Conc) 10 ml PO DAILY PRN PRN Reason: Indigestion Stop: 05/21/17 17:24 Metoprolol Succinate (Toprol Xl) 25 mg PO DAILY SEVEN Stop: 05/22/17 09:01 Last Admin: 11/20/16 08:30 Dose: 25 mg Mirtazapine (Remeron) 15 mg PO HS SEVEN Stop: 05/21/17 21:01 Last Admin: 11/20/16 02:26 Dose: Not Given Naloxone HCl (Narcan) 0.4 mg IVP Q2MIN PRN PRN Reason: Opioid Reversal Stop: 05/21/17 17:24 Ondansetron HCl (Zofran) 4 mg IVP Q8HR PRN PRN Reason: Nausea And Vomiting Stop: 05/21/17 17:24 Oxybutynin Chloride (Ditropan) 5 mg PO BID SEVEN Stop: 05/21/17 21:01 Last Admin: 11/20/16 08:30 Dose: 5 mg Simvastatin (Zocor) 40 mg PO HS SEVEN PRN Reason: Protocol Stop: 05/21/17 21:01 Last Admin: 11/20/16 02:26 Dose: Not Given Venlafaxine HCl (Effexor Xr) 75 mg PO DAILY [facility] Stop: 05/22/17 09:01 Last Admin: 11/20/16 08:30 Dose: 75 mg - Imaging and Cardiology Echo: report reviewed Cardiac cath: report reviewed Other Results: 12 hour tele: avg HR=82 SR. No significant event noted. No pause. Min=60. - EKG Interpretation EKG results cardiology: personally reviewed Consult Discharge Plan - Plan Referrals: Ross Resendez DO [Primary Care Provider] - (web request sent on 11/20/16 )
[2016-11-20 15:10] LABS: Bilirubin,Urine Negative (Negative); Blood,Urine Negative (Negative); Clarity,Urine Clear (Clear); Color,Urine Yellow (Yellow); Glucose,Urine (UA) Normal (Normal); Ketones,Urine Negative (Negative); Leukocyte Esterase,Urine Negative (Negative); Nitrite,Urine Negative (Negative); Protein,Urine >=300 mg/dL (Neg-Trace); Specific Gravity,Urine 1.014 (1.010-1.025); Urobilinogen,Urine Normal (Normal)
[2016-11-20 15:12] LABS: Bacteria,Urine None Seen per hpf (None-Few); Hyaline Casts,Urine None Seen per lpf (None-Few); RBC,Urine 0-3 per hpf (0-3); Squamous Epithelial Cell,Urine Moderate per lpf (None-Few); WBC,Urine 0-3 per hpf (0-3)
[2016-11-21] MEDS: Ipratropium/Albuterol Neb 3 ML IH SCH ×4 (03:56→23:03)
[2016-11-21 04:42] LABS: Basophils % 0.5 %; Eosinophils # 0.2 K/mcL (0.0-0.6); Eosinophils % 2.4 %; Hematocrit 30.9 % (35.3-44.9); Immature Granulocytes % 0.5 % (0-4); Lymphocytes % 25.2 %; Mean Corpuscular HGB Conc 31.1 g/dL (31.6-35.5); Mean Corpuscular Volume 99.7 fL (83.0-100.0); Mean Platelet Volume 11.4 fL (9.4-12.4); Monocytes # 0.7 K/mcL (0.0-1.3); Monocytes % 8.9 %; Neutrophils # 5.1 K/mcL (1.6-8.9); Platelet Count 209 K/mcL (140-400); Red Cell Distribution Width 13.8 % (11.5-14.5); Segmented Neutrophils % 62.5 %
[2016-11-21 04:45] LABS: Hemoglobin 9.6 g/dL (11.5-15.4)
[2016-11-21 04:53] LABS: Calcium 9.7 mg/dL (8.6-10.8); Potassium 3.7 mEq/L (3.5-4.5)
[2016-11-21] MEDS: *HR* Heparin 5,000 UNIT/ML VIAL SQ SCH ×2 (06:20→18:28)
[2016-11-21] MEDS: Aspirin Enteric Coated 81 MG Tablet PO SCH (09:24)
[2016-11-21] MEDS: Folic Acid 1 MG TABLET PO SCH (09:24)
[2016-11-21] MEDS: Famotidine 20 MG TABLET PO SCH (09:24)
[2016-11-21] MEDS: Lactobacillus 1 EACH CAP.SPRINK PO SCH ×2 (09:24→21:13)
[2016-11-21] MEDS: Venlafaxine XR (24 HR) 75 MG CAP.ER.24H PO SCH (09:24)
[2016-11-21] MEDS: hydrALAZINE 25 MG TABLET PO SCH ×2 (09:24→21:13)
[2016-11-21] MEDS: Metoprolol XL (24 HR) Succ 50 MG TAB.ER.24H PO SCH (09:25)
[2016-11-21 12:36] LABS: Folate 30.8 ng/mL (7.0-31.4)
--- NOTE | 2016-11-21 15:43 | Internal Med Progress Note ---
Date of Encounter: 11/21/16 Time of Encounter: 08:55 - Assessment and plan (1) Fall Current Visit: Yes Status: Acute Assessment and plan: Patient was initially admitted for fall. She was found at home in the floor, unknown if she had a syncopal episode. Today patient is alert and oriented and is wanting to be up walking around. I did request that the nurses take her for a walk in the hallway. Her gait was slow but appeared to be steady. Echocardiogram was done yesterday, findings consistent with condition that could cause syncope. Cardiology was consulted and recommended continued hydration and increasing her beta sole. Patient will remain on fall precautions with bed alarm. PT has recommended SNF for rehabilitation. Is unlikely the patient would be able to return home after. Social work consult in place. Qualifiers: Encounter type: initial encounter Qualified Code(s): W19.XXXA - Unspecified fall, initial encounter (2) Weight loss Current Visit: Yes Status: Acute Assessment and plan: Nursing has requested that diet be changed to a softer diet. I believe patient requires assistance in eating and may not be able to feed herself anymore. Ultrasound of her liver has not been done yet. Appears to have cyst on liver, however will need further evaluation to determine if this is having an impact on her appetite and weight loss. Last night daughter states that patient was having difficulty eating the food because it is just not good. Nutrition consult is in (3) FTT (failure to thrive) in adult Current Visit: Yes Status: Acute Assessment and plan: Plan as above (4) Altered mental status, unspecified Current Visit: Yes Status: Chronic Assessment and plan: Patient was awake and alert, interactive room this morning. She was unable to tell me her name. When I asked her to tell me her name Raisa tell her nurse she said "I do not want to play anymore. Oh Lord, woman". Patient does have a history of dementia. The last 2 days and they have seen this patient, she has been very drowsy and almost unarousable. Today she is better. I had ordered an MRI yesterday after seeing the patient in the morning. She was very drowsy and this was not her normal state. Head CT was negative. When I went back in the evening to talk to the daughter who requested I discussed plan of care with her, patient was alert and awake and I told the daughter that I had ordered the MRI but would cancel it. Daughter states that she would like for her to go ahead and have it. I do not see a problem with this, however I will leave this to the discretion of the provider who has her tomorrow. I did order a urine that was collected yesterday and is negative. Chest x-ray is also negative. Last night, daughter states that patient has returned to baseline. Qualifiers: Altered mental status type: unspecified Qualified Code(s): R41.82 - Altered mental status, unspecified (5) CKD (chronic kidney disease) stage 4, GFR 15-29 ml/min Current Visit: Yes Status: Chronic Assessment and plan: Renal function remains unchanged. We will continue to monitor labs. We will avoid nephrotoxins. (6) Murmur, heart Current Visit: No Status: Chronic (7) COPD (chronic obstructive pulmonary disease) Current Visit: No Status: Chronic Assessment and plan: No exacerbation. Continue to monitor sats and vitals. Qualifiers: COPD type: emphysema Emphysema type: unspecified Qualified Code(s): J43.9 - Emphysema, unspecified (8) CAD (coronary artery disease) Current Visit: No Status: Chronic Assessment and plan: Chronic. Continue aspirin and beta sole. Patient is unable to answer if she has chest pain. Troponins elevated overnight. Currently 0.08 Cardiology has been consulted. Qualifiers: Coronary Disease-Associated Artery/Lesion type: [place] artery [place] vs. transplanted heart: [place] heart Associated angina: without angina Qualified Code(s): I25.10 - Atherosclerotic heart disease of [place] coronary artery without angina pectoris (9) Hypertension Current Visit: No Status: Chronic Assessment and plan: Chronic. Continue medications. Continue to monitor vital signs. Qualifiers: Hypertension type: essential hypertension Qualified Code(s): I10 - Essential (primary) hypertension (10) DVT prophylaxis Current Visit: No Status: Acute Assessment and plan: Subcutaneous heparin. MIQUEL velazco. (11) Abdominal aortic aneurysm (AAA) 3.0 cm to 5.0 cm in diameter in female Current Visit: Yes Status: Chronic Assessment and plan: Patient has a infrarenal abdominal aortic aneurysm measuring 3.2 packs 3.3 cm. Is also noted on an image from 11/12/2015. According to radiology guidelines, it will need to be followed up in 3 years. (12) Anemia Current Visit: No Status: Chronic Assessment and plan: Hemoglobin has dropped from 13 3-9.6. MCV remains within normal limits. Hematocrit has fallen from 42.1-30.9. Her iron is within normal limits at 54, percent saturation is 25. Transferrin is low at 154. Folate 30.8, B12 is 1521. A stool for occult blood has been sent, and urine is negative for blood. A GI consult has been entered. I did speak with Dr. Marie who is aware of the patient. Qualifiers: Anemia type: unspecified type Qualified Code(s): D64.9 - Anemia, unspecified - Subjective Interval history: Patient remains drowsy today. She is easily arousable to verbal stimuli, however, she does not stay awake to answer more than 1 question. UA with reflex micro-and culture has been ordered and pending. She has a concerning result on her abdomen CT a low attenuation foci to the liver. Solid lesion cannot be excluded. MRI was ordered to evaluate. Chest x-ray was negative, however there is a tree-in-bud type opacity in right middle lobe could represent an infectious or inflammatory process. We will continue to monitor. Patient is unable to state whether she has chest pain or not. She had an echocardiogram that indicated that syncope could be cardiac in nature. Troponins were also elevated 0.08 this morning. Cardiology has been consulted. - Constitutional Vitals: Temp Pulse Resp BP Pulse Ox 98.2 F 70 16 134/75 92 11/21/16 11:31 11/21/16 11:31 11/21/16 11:31 11/21/16 11:31 11/21/16 11:31 General appearance: Present: cooperative, A&O X 2, pleasant, no acute distress. Absent: severe distress, answers questions appropriately - Head Head exam: Present: normal inspection - Eye Eye exam: Present: normal appearance, conjuntiva pink - ENT ENT exam: Present: mucous membranes moist, normal exam, normal external ear exam - Neck Neck exam general surgery: Present: normal inspection. Absent: lymphadenopathy , tenderness - Respiratory Respiratory exam: Present: CTAB. Absent: rales, respiratory distress, rhonchi, stridor - Cardiovascular Cardiovascular exam: Present: RRR, +S1, +S2. Absent: diastolic murmur, systolic murmur - GI/Abdominal GI/Abdominal exam: Present: normal bowel sounds, soft. Absent: hepatomegaly, tenderness - Extremities Exam Extremities exam: Present: normal capillary refill, warm, radial pulses palpable and symetrical. Absent: pedal edema, tenderness - Neurological Exam Neurological exam: Present: alert, oriented X3, no focal deficits, strengths equal and symetr throughout. Absent: facial droop, speech deficit - Psychiatric Psychiatric exam: Present: flat affect Internal Medicine: Result - Labs CBC & Chem 7: 11/21/16 04:13 11/21/16 04:13 Labs: Short CBC 11/21/16 Range/Units 04:13 WBC 8.1 (4.3-11.1) K/mcL Hgb 9.6 L D (11.5-15.4) g/dL Hct 30.9 L (35.3-44.9) % Plt Count 209 (140-400) K/mcL Neutrophils # 5.1 (1.6-8.9) K/mcL BMP 11/21/16 04:13 Sodium 145 Potassium 3.7 Chloride 112 H Carbon Dioxide 24 BUN 27 H Creatinine 2.58 H Glucose 126 H Calcium 9.7 Consult Discharge Plan - Plan Referrals: Ross Resendez DO [Primary Care Provider] - (web request sent on 11/20/16 )
[2016-11-22] MEDS: 0.9 % Sodium Chloride 1,000 ML IVC SCH (01:09)
[2016-11-22] MEDS: Ipratropium/Albuterol Neb 3 ML IH SCH ×4 (03:42→22:18)
[2016-11-22 05:00] LABS: Basophils % 0.4 %; Eosinophils # 0.2 K/mcL (0.0-0.6); Eosinophils % 3.1 %; Hematocrit 33.4 % (35.3-44.9); Hemoglobin 10.3 g/dL (11.5-15.4); Immature Granulocytes % 0.6 % (0-4); Lymphocytes # 2.1 K/mcL (0.6-4.6); Lymphocytes % 27.2 %; Mean Corpuscular HGB Conc 30.8 g/dL (31.6-35.5); Mean Corpuscular Hemoglobin 30.5 pg (28.0-33.3); Mean Corpuscular Volume 98.8 fL (83.0-100.0); Mean Platelet Volume 11.2 fL (9.4-12.4); Monocytes # 0.6 K/mcL (0.0-1.3); Monocytes % 7.6 %; Neutrophils # 4.7 K/mcL (1.6-8.9); Platelet Count 212 K/mcL (140-400); Red Blood Count 3.38 M/mcL (3.82-4.97); Red Cell Distribution Width 13.9 % (11.5-14.5); Segmented Neutrophils % 61.1 %
[2016-11-22 05:16] LABS: Calcium 10.3 mg/dL (8.6-10.8); Potassium 4.1 mEq/L (3.5-4.5)
[2016-11-22] MEDS: *HR* Heparin 5,000 UNIT/ML VIAL SQ SCH ×2 (05:25→16:54)
[2016-11-22] MEDS: Lactobacillus 1 EACH CAP.SPRINK PO SCH ×2 (08:55→22:55)
[2016-11-22] MEDS: Venlafaxine XR (24 HR) 75 MG CAP.ER.24H PO SCH (08:55)
[2016-11-22] MEDS: Metoprolol XL (24 HR) Succ 50 MG TAB.ER.24H PO SCH (08:55)
[2016-11-22] MEDS: Folic Acid 1 MG TABLET PO SCH (08:56)
[2016-11-22] MEDS: Aspirin Enteric Coated 81 MG Tablet PO SCH (08:56)
[2016-11-22] MEDS: hydrALAZINE 25 MG TABLET PO SCH ×2 (08:56→22:55)
--- NOTE | 2016-11-22 11:42 | Gastroenterology Consult Note ---
<ContehRegino martinez Luis - Last Filed: 11/22/16 11:38> Date of Encounter: 11/22/16 Time of Encounter: 10:50 - Assessment and plan (1) Anemia Current Visit: No Status: Chronic Assessment and plan: Continue to monitor CBC and transfuse PRBC as needed. Plan for EGD and colonoscopy tomorrow. Clear liquid diet today, no red or purple. NPO at midnight. If not clear by 6 AM, give 2 tap water enemas. Patient unable to sign consent for these procedures, no power of state's attorney or family member listed in the medical record. Qualifiers: Anemia type: unspecified type Qualified Code(s): D64.9 - Anemia, unspecified (2) COPD (chronic obstructive pulmonary disease) Current Visit: No Status: Chronic Assessment and plan: Management per primary team. Qualifiers: COPD type: emphysema Emphysema type: unspecified Qualified Code(s): J43.9 - Emphysema, unspecified (3) Altered mental status, unspecified Current Visit: Yes Status: Chronic Assessment and plan: Management per primary team. Qualifiers: Altered mental status type: unspecified Qualified Code(s): R41.82 - Altered mental status, unspecified (4) CKD (chronic kidney disease) stage 4, GFR 15-29 ml/min Current Visit: Yes Status: Chronic - Time Spent With Patient Total time spent is greater than 50% in coordination of care (as documented) at patient's floor/unit and/or counseling patient: GI History of Present Illness - Data of Consult Patient: new to practice Consult date: 11/22/16 Requesting Physician: Laureano Friedman - Consult Narrative Reason for consult: anemia History of present illness: Ms. Benavides is a 76 year old female with PMHx of COPD, CKD, CAD, HTN craniotomy due to head bleed who presented to the ED after being found on floor by home health nurse. CT head and c-spine were negative for acute injury. Per review of medical record, patient has dementia and has been hallucinating, not eating or drinking, and has lost several pounds within the past few weeks. Hgb on admission was 13.3 and dropped to 9.6 on 11/21 with iron 54. This AM, Hgb 10.3. We have been consulted to evaluate her anemia. She is alert today and sitting on side of bed. She denies fever, chest pain, abdominal pain, nausea, vomiting, hematemesis, melena, or hematochezia. Procedures: Colonoscopy 05/13/2014 Dr. Santos: Three 8-20 mm tubular adenomas ascending/transverse/splenic flexure, 2 hyperplastic polyps-sigmoid/ rectal, diverticulosis, NSAIDs: ASA Anticoagulation: None Past Med Surg Social Fam HX - Past Medical History Medical history: coronary artery disease, hypertension, osteoporosis, renal disease Psychiatric history: anxiety, depression - Past Surgical History Surgical History: angioplasty/stent, appendectomy, hysterectomy - Social History Smoking Status: Former smoker Smokeless Tobacco Status: No Alcohol use: rarely Drug use: none - Gastrointestinal Gastrointestinal: Present: as per HPI - Constitutional Constitutional: as per HPI - EENT Eyes: as per HPI Ears: Present: as per HPI Nose, mouth and throat: Present: as per HPI - Cardiovascular Cardiovascular ROS: Present: as per HPI - Respiratory Respiratory IM: Present: as per HPI - Genitourinary Genitourinary: Absent: change in color, Urinary frequency - Neurological ROS Neurological GI: Present: as per HPI - Hematologic/Lymphatic Hematologic/Lymphatic pediatric: Present: as per HPI - Musculoskeletal Musculoskeletal ROS GI: Present: as per HPI - Integumentary Integumentary GI: Present: as per HPI - Psychiatric ROS Psychiatric GI: Present: as per HPI - Endocrine Endocrine IM: Present: as per HPI - Constitutional Vitals: Temp Pulse Resp BP Pulse Ox 98.3 F 82 16 126/71 93 11/22/16 05:08 11/22/16 08:47 11/22/16 08:47 11/22/16 08:47 11/22/16 08:47 General appearance: Present: cooperative, A&O X 1, no acute distress. Absent: answers questions appropriately - Head Head exam: Present: atraumatic, normocephalic - Eye Eye exam: Present: normal appearance, sclera anicteric - ENT ENT exam: Present: mucous membranes dry - Neck Neck exam general surgery: Present: normal inspection, trachea midline - Respiratory Respiratory exam: Present: CTAB. Absent: rales, rhonchi - Cardiovascular Cardiovascular exam: Present: RRR, +S1, +S2 - GI/Abdominal GI/Abdominal exam: Present: soft, no peritoneal signs. Absent: distended, firm , guarding, tenderness - Rectal Rectal exam: Present: deferred - Extremities Exam Extremities exam: Present: warm - Neurological Exam Neurological exam: Present: no focal deficits - Psychiatric Psychiatric exam: Present: normal affect, normal mood - Skin Skin exam: Present: dry, intact, normal color, warm Results - Labs CBC & Chem 7: 11/22/16 04:24 11/22/16 04:24 Labs: Last Result Calcium 10.3 mg/dL (8.6-10.8) 11/22/16 04:24 Iron 54 mcg/dL (50-170) 11/21/16 04:13 % Saturation 25 % (15-50) 11/21/16 04:13 Transferrin 154 mg/dL (180-382) L 11/21/16 04:13 Troponin I 0.08 ng/mL (0-0.03) H* 11/20/16 05:25 Vitamin B12 1521 pg/mL (213-816) H 11/21/16 04:13 Folate 30.8 ng/mL (7.0-31.4) 11/21/16 04:13 Entire Visit Hgb 10.3 g/dL (11.5-15.4) L 11/22/16 04:24 Hct 33.4 % (35.3-44.9) L 11/22/16 04:24 Folate 30.8 ng/mL (7.0-31.4) 11/21/16 04:13 - Impressions Impressions Abdomen CT 11/19/16 17:39 IMPRESSION: No acute findings are seen to the abdomen. Indeterminate low-attenuation foci noted to the liver with the largest focus measuring 3.2 x 2.4 cm with attenuation characteristics borderline fluid attenuation. Solid lesion cannot be excluded. Further evaluation with MRI with and without contrast recommended. Tree-in-bud type opacities to visualized right middle lobe concerning for a nonspecific infectious or inflammatory process. Continued follow-up recommended. Atherosclerosis along with aneurysmal dilatation of both ascending and descending visualized thoracic aorta as above. There is also evidence for infrarenal abdominal aortic aneurysm measuring 3.2 x 3.3 cm. Reference management guidelines below for abdominal aortic aneurysm. There are some high attenuation foci identified associated with the wall of the gallbladder, some of which are nondependent. These are nonspecific and could reflect some stones or appearance sludge balls or polyps. Consider further evaluation with ultrasound. Colonic diverticulosis without findings for diverticulitis. RECOMMENDATIONS: Managing Abdominal Aortic Aneurysms 2.6-2.9 cm: 5 year follow up. 3.0-3.4 cm: 3 year follow up 3.5-3.9 cm: 1 year follow up. 4.0-4.4 cm: 1 year follow up. Recommend vascular consultation. 4.5-5.4 cm: 6 month follow up. Recommend vascular consultation. Greater than or equal to 5.5 cm: Referral to vascular surgeon. Reference: Inderjit et al. The care of patients with an abdominal aortic aneurysm: The Society of Vascular Surgery practice guidelines. Journal of Vascular Surgery. Vol 50, Number 85. Douglas et al. Managing Incidental Findings on Abdominal and Pelvic CT and MRI, Part 2: White Paper of the ACR Incidental Findings Committee II on Vascular Findings. J Am Mirtha Radiol 2013;10:789-794 D/ / 11/19/2016 19:07:13 Silvino Avelar MD / [facility] Interpreting Provider: Silvino Avelar MD Consult Discharge Plan - Plan Referrals: Ross Resendez DO [Primary Care Provider] - 11/29/16 10:00 am (web request sent on 11/20/16 Patient will go to [facility]) <Daysi Marie - Last Filed: 11/22/16 18:28> Date of Encounter: 11/22/16 Time of Encounter: 17:00 - Time Spent With Patient Total time spent is greater than 50% in coordination of care (as documented) at patient's floor/unit and/or counseling patient: GI History of Present Illness - Data of Consult Requesting Physician: Laureano Friedman - Consult Narrative History of present illness: Ms. Benavides is a 76 year old female - Constitutional Vitals: Temp Pulse Resp BP Pulse Ox 98.2 F 75 15 168/81 94 11/22/16 15:43 11/22/16 15:43 11/22/16 15:43 11/22/16 18:16 11/22/16 15:43 Results - Labs CBC & Chem 7: 11/22/16 04:24 11/22/16 04:24 Labs: Last Result Calcium 10.3 mg/dL (8.6-10.8) 11/22/16 04:24 Iron 54 mcg/dL (50-170) 11/21/16 04:13 % Saturation 25 % (15-50) 11/21/16 04:13 Transferrin 154 mg/dL (180-382) L 11/21/16 04:13 Troponin I 0.08 ng/mL (0-0.03) H* 11/20/16 05:25 Vitamin B12 1521 pg/mL (213-816) H 11/21/16 04:13 Folate 30.8 ng/mL (7.0-31.4) 11/21/16 04:13 Stool Occult Blood Negative (Negative) 11/22/16 17:15 Entire Visit Hgb 10.3 g/dL (11.5-15.4) L 11/22/16 04:24 Hct 33.4 % (35.3-44.9) L 11/22/16 04:24 Folate 30.8 ng/mL (7.0-31.4) 11/21/16 04:13 - Impressions Impressions Abdomen CT 11/19/16 17:39 IMPRESSION: No acute findings are seen to the abdomen. Indeterminate low-attenuation foci noted to the liver with the largest focus measuring 3.2 x 2.4 cm with attenuation characteristics borderline fluid attenuation. Solid lesion cannot be excluded. Further evaluation with MRI with and without contrast recommended. Tree-in-bud type opacities to visualized right middle lobe concerning for a nonspecific infectious or inflammatory process. Continued follow-up recommended. Atherosclerosis along with aneurysmal dilatation of both ascending and descending visualized thoracic aorta as above. There is also evidence for infrarenal abdominal aortic aneurysm measuring 3.2 x 3.3 cm. Reference management guidelines below for abdominal aortic aneurysm. There are some high attenuation foci identified associated with the wall of the gallbladder, some of which are nondependent. These are nonspecific and could reflect some stones or appearance sludge balls or polyps. Consider further evaluation with ultrasound. Colonic diverticulosis without findings for diverticulitis. RECOMMENDATIONS: Managing Abdominal Aortic Aneurysms 2.6-2.9 cm: 5 year follow up. 3.0-3.4 cm: 3 year follow up 3.5-3.9 cm: 1 year follow up. 4.0-4.4 cm: 1 year follow up. Recommend vascular consultation. 4.5-5.4 cm: 6 month follow up. Recommend vascular consultation. Greater than or equal to 5.5 cm: Referral to vascular surgeon. Reference: Inderjit et al. The care of patients with an abdominal aortic aneurysm: The Society of Vascular Surgery practice guidelines. Journal of Vascular Surgery. Vol 50, Number 85. Douglas et al. Managing Incidental Findings on Abdominal and Pelvic CT and MRI, Part 2: White Paper of the ACR Incidental Findings Committee II on Vascular Findings. J Am Mirtha Radiol 2013;10:789-794 D/ 11/19/2016 19:07:13 Silvino Avelar MD / [facility] Interpreting Provider: Silvino Avelar MD Brain MRI 11/22/16 09:28 IMPRESSION: 1. Motion degraded study. 2. No acute intracranial abnormality. 3. Generalized volume loss and mild to moderate chronic microvascular ischemic disease are unchanged. 4. Evidence of remote microhemorrhage involving the brainstem. Findings are nonspecific, but again are suggestive of chronic hypertensive angiopathy. D/ /22/2016 14:23:15 Ysabel Torres MD / [facility] Interpreting Provider: Ysabel Torres MD Abdomen Ultrasound 11/22/16 11:30 IMPRESSION: A 3.2 x 2.5 x 1.9 cm lesion within the liver appears solid on ultrasound imaging. Follow-up CT or MRI utilizing a liver mass protocol without and with contrast would be recommended to further evaluate. Complex cyst septation noted measuring 19 mm in the adjacent portion of the right hepatic lobe. Probable polyps versus adherent stones within the gallbladder. D/ / 11/22/2016 13:51:25 Donnell Boyd [facility] Provider: Donnell Boyd MD - Attending Attestation I examined this patient and my medical decision-making was reviewed with the GI TECHNICIAN/PA/Advanced Practice Nurse/Resident Physician. I agree with the documented findings, disposition and treatment plan as described except to the extent set forth below.
--- NOTE | 2016-11-22 14:25 | Internal Med Progress Note ---
Date of Encounter: 11/22/16 Time of Encounter: 10:40 - Assessment and plan (1) Altered mental status, unspecified Current Visit: Yes Status: Chronic Assessment and plan: Patient was awake and alert, interactive room this morning. Patient does have a history of dementia. The last 2 days and they have seen this patient, she has been very drowsy and almost unarousable. Today she is better. Head CT was negative. MRI has been ordered. Urine is negative. Chest x-ray is also negative. Patient appears to be at her baseline. Qualifiers: Altered mental status type: unspecified Qualified Code(s): R41.82 - Altered mental status, unspecified (2) CKD (chronic kidney disease) stage 4, GFR 15-29 ml/min Current Visit: Yes Status: Chronic Assessment and plan: Renal function remains unchanged. We will continue to monitor labs. We will avoid nephrotoxic agents. (3) DVT prophylaxis Current Visit: No Status: Acute Assessment and plan: Subcutaneous heparin. MIQUEL velazco. (4) Anemia Current Visit: No Status: Chronic Assessment and plan: Hemoglobin has dropped. GI saw her today and plan is to do endoscopic studies. Might be related to chornic renal disease. Qualifiers: Anemia type: unspecified type Qualified Code(s): D64.9 - Anemia, unspecified (5) COPD (chronic obstructive pulmonary disease) Current Visit: No Status: Chronic Qualifiers: COPD type: emphysema Emphysema type: unspecified Qualified Code(s): J43.9 - Emphysema, unspecified (6) Syncope Current Visit: Yes Status: Acute Assessment and plan: Echo finidngs noted, contnue betablockers. Qualifiers: Syncope type: unspecified Qualified Code(s): R55 - Syncope and collapse - Subjective Interval history: patient seen and examined, she i s pleasantly confused, not in dstress. - Constitutional Vitals: Temp Pulse Resp BP Pulse Ox 98.3 F 82 16 126/71 93 11/22/16 05:08 11/22/16 08:47 11/22/16 08:47 11/22/16 08:47 11/22/16 08:47 General appearance: Present: cooperative, A&O X 2, pleasant, no acute distress. Absent: severe distress, answers questions appropriately - Head Head exam: Present: atraumatic, normocephalic - Eye Eye exam: Present: PERRL, conjuntiva pink, sclera anicteric Pupils: Present: PERRL - Neck Neck exam general surgery: Present: supple, trachea midline. Absent: lymphadenopathy - Respiratory Respiratory exam: Present: CTAB. Absent: accessory muscle use, rales, rhonchi, wheezes - Cardiovascular Cardiovascular exam: Present: RRR, +S1, +S2. Absent: diastolic murmur, gallop, rubs, systolic murmur - GI/Abdominal GI/Abdominal exam: Present: normal bowel sounds, soft, no peritoneal signs. Absent: distended, tenderness - Extremities Exam Extremities exam: Present: warm, radial pulses palpable and symetrical. Absent : calf tenderness, cyanotic, pedal edema - Neurological Exam Neurological exam: Present: CN II-XII intact, oriented X3, no focal deficits. Absent: pronater drift, facial droop, speech deficit - Skin Skin exam: Present: dry, intact Internal Medicine: Result - Labs CBC & Chem 7: 11/22/16 04:24 11/22/16 04:24 Labs: Short CBC 11/22/16 Range/Units 04:24 WBC 7.8 (4.3-11.1) K/mcL Hgb 10.3 L (11.5-15.4) g/dL Hct 33.4 L (35.3-44.9) % Plt Count 212 (140-400) K/mcL Neutrophils # 4.7 (1.6-8.9) K/mcL BMP 11/22/16 04:24 Sodium 141 Potassium 4.1 Chloride 108 Carbon Dioxide 25 BUN 22 H Creatinine 2.47 H Glucose 95 Calcium 10.3 - Impressions Impressions Abdomen CT 11/19/16 17:39 IMPRESSION: No acute findings are seen to the abdomen. Indeterminate low-attenuation foci noted to the liver with the largest focus measuring 3.2 x 2.4 cm with attenuation characteristics borderline fluid attenuation. Solid lesion cannot be excluded. Further evaluation with MRI with and without contrast recommended. Tree-in-bud type opacities to visualized right middle lobe concerning for a nonspecific infectious or inflammatory process. Continued follow-up recommended. Atherosclerosis along with aneurysmal dilatation of both ascending and descending visualized thoracic aorta as above. There is also evidence for infrarenal abdominal aortic aneurysm measuring 3.2 x 3.3 cm. Reference management guidelines below for abdominal aortic aneurysm. There are some high attenuation foci identified associated with the wall of the gallbladder, some of which are nondependent. These are nonspecific and could reflect some stones or appearance sludge balls or polyps. Consider further evaluation with ultrasound. Colonic diverticulosis without findings for diverticulitis. RECOMMENDATIONS: Managing Abdominal Aortic Aneurysms 2.6-2.9 cm: 5 year follow up. 3.0-3.4 cm: 3 year follow up 3.5-3.9 cm: 1 year follow up. 4.0-4.4 cm: 1 year follow up. Recommend vascular consultation. 4.5-5.4 cm: 6 month follow up. Recommend vascular consultation. Greater than or equal to 5.5 cm: Referral to vascular surgeon. Reference: Inderjit et al. The care of patients with an abdominal aortic aneurysm: The Society of Vascular Surgery practice guidelines. Journal of Vascular Surgery. Vol 50, Number 85. Douglas et al. Managing Incidental Findings on Abdominal and Pelvic CT and MRI, Part 2: White Paper of the ACR Incidental Findings Committee II on Vascular Findings. J Am Mirtha Radiol 2013;10:789-794 D/ / 11/19/2016 19:07:13 Silvino Avelar MD / perla Interpreting Provider: Silvino Avelar MD Brain MRI 11/22/16 09:28 IMPRESSION: 1. Motion degraded study. 2. No acute intracranial abnormality. 3. Generalized volume loss and [id number] chronic microvascular ischemic disease are unchanged. 4. Evidence of remote microhemorrhage involving the brainstem. Findings are nonspecific, but again are suggestive of chronic hypertensive cholangiopathy. D/ / Ysabel Torres MD / Ysabel Torres MD Interpreting Provider: Ysabel Torres MD Abdomen Ultrasound 11/22/16 11:30 IMPRESSION: A 3.2 x 2.5 x 1.9 cm lesion within the liver appears solid on ultrasound imaging. Follow-up CT or MRI utilizing a liver mass protocol without and with contrast would be recommended to further evaluate. Complex cyst septation noted measuring 19 mm in the adjacent portion of the right hepatic lobe. Probable polyps versus adherent stones within the gallbladder. D/ / 11/22/2016 13:51:25 Donnell Boyd MD / jocelyne Interpreting Provider: Donnell Boyd MD Consult Discharge Plan - Plan Referrals: Ross Resendez DO [Primary Care Provider] - 11/29/16 10:00 am (web request sent on 11/20/16 Patient will go to [facility])
[2016-11-22] MEDS ORDERED: Haloperidol Lactate 5 MG/ML VIAL IM ONE (16:27)
[2016-11-22] MEDS ORDERED: Polyethylene Glycol 3350 255 GM POWDER PO ONE (17:00)
--- NOTE | 2016-11-22 18:16 | Electrocardiograph Report ---
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
[2016-11-22] MEDS: Famotidine 20 MG TABLET PO SCH (22:55)
[2016-11-23] MEDS: Ipratropium/Albuterol Neb 3 ML IH SCH (04:15)
[2016-11-23] MEDS ORDERED: Ipratropium/Albuterol Neb 3 ML IH PRN (08:14)
[2016-11-23] MEDS: Metoprolol XL (24 HR) Succ 50 MG TAB.ER.24H PO SCH (08:37)
[2016-11-23] MEDS: Venlafaxine XR (24 HR) 75 MG CAP.ER.24H PO SCH (08:37)
[2016-11-23] MEDS: Lactobacillus 1 EACH CAP.SPRINK PO SCH ×2 (08:37→21:51)
[2016-11-23] MEDS: Aspirin Enteric Coated 81 MG Tablet PO SCH (08:37)
[2016-11-23] MEDS: Folic Acid 1 MG TABLET PO SCH (08:37)
[2016-11-23] MEDS: *HR* Heparin 5,000 UNIT/ML VIAL SQ SCH ×3 (08:37→17:32)
[2016-11-23] MEDS: hydrALAZINE 25 MG TABLET PO SCH ×2 (08:37→21:53)
[2016-11-23 09:28] LABS: Hematocrit 31.7 % (35.3-44.9); Hemoglobin 10.1 g/dL (11.5-15.4)
[2016-11-23 09:47] LABS: Potassium 3.9 mEq/L (3.5-4.5)
--- NOTE | 2016-11-23 12:49 | Anesthesia Evaluation PreOp ---
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), Other (dementia) Other Medical History: Renal (stage 4 CKD) Anesthesia History: No Prior Anesthetic Complications Alcohol Use: rarely Drug use: none Medications and Allergies Calcitriol [Rocaltrol] 0.5 mcg PO QAM 04/28/15 [History] Ergocalciferol (VITAMIN D2) [Vitamin D2 (50,000 UNIT)] 50,000 unit PO QWEEK [History] HydrALAZINE 25 mg PO BID 04/28/15 [History] Nitroglycerin [Nitrostat] 0.4 mg SL Q5M PRN 04/28/15 [History] Pregabalin [Lyrica] 50 mg PO BID 04/28/15 [History] Ranitidine HCl [Zantac] 150 mg PO BID 04/28/15 [History] Tolterodine Tartrate [Detrol] 1 mg PO BID 10/15/15 [History] Ipratropium/Albuterol Neb [Duoneb] 3 ml IH Q4HR PRN 12/23/15 [History] Lactobacillus Acidophilus [Acidophilus] 1 cap PO BID 12/23/15 [History] Losartan Potassium [Cozaar] 100 mg PO DAILY 12/23/15 [History] Folic Acid 1 mg PO DAILY #30 tablet 01/10/16 [Rx] Albuterol Sulfate [Albuterol Inhaler] 2 puff IH Q4HR #1 hfa.aer.ad 09/23/16 [Rx] Cyanocobalamin (B-12) [Vitamin B12] 1,000 mcg IM QMONTH #12 vial 11/18/16 [Rx] Aspirin Enteric Coated [Aspirin EC] 81 mg PO DAILY 11/19/16 [History] Budesonide/Formoterol 160/4.5 [Symbicort 160/4.5] 2 puff IH BIDR 11/19/16 [ History] Metoprolol XL (24 HR) Succ [Toprol XL] 25 mg PO DAILY 11/19/16 [History] Mirtazapine [Remeron] 15 mg PO HS 11/19/16 [History] Oxygen 1 each .ROUTE AD 11/19/16 [History] Simvastatin [Zocor] 40 mg PO HS 11/19/16 [History] Tizanidine HCl 4 mg PO HS PRN 11/19/16 [History] Venlafaxine HCl [Venlafaxine HCl ER] 75 mg PO DAILY 11/19/16 [History] Allergies clonazepam [From Klonopin] Allergy (Verified 10/15/15 16:47) See Comments unsure of reaction prasugrel [From Effient] Allergy (Verified 10/15/15 16:47) See Comments Brain hermorrhage - Meds/Allergy Pre-op Review Medications Reviewed: Yes Allergies Reviewed: Yes Beta Blockers on Current Med List: Yes If Beta Blockers taken, Date/Time (Last Dose taken): 11-23-16 metoprolol 8:37 Anesthesia Results - Labs 11/23/16 09:16 11/23/16 09:16 - Imaging EKG: report reviewed, image reviewed (SR; LVH) Additional studies: TTE LVEF > 70% with SHAUNA and severe LVOT Anesthesia Exam Last Vital Signs Temp 97.6 F 11/23/16 12:39 Pulse 76 11/23/16 12:39 Resp 16 11/23/16 12:39 BP 130/79 11/23/16 12:39 Pulse Ox 93 11/23/16 12:39 Weight: 75 kg NPO (# of Hours): >> 8 hrs - HEENT Pupil (Motor): Pupils equal Mallampati: III Teeth: Edentulous Oral Opening: Greater than 3 - ORGAN TEACHER LOC: Disoriented - Cardiac Rhythm: Regular Murmur: None - Pulmonary Breath Sounds: bilateral Clear Respiratory Effort: Symmetrical Anesthesia Assess/Plan ASA Score: 4 Modified Lyons Scale for Level of Consciousness: Cooperative, oriented, and tranquil Anesthetic Plan: MAC (cardiac stable medications such as etomidate due to severe LVOT and SHAUNA) Monitoring Plan: Standard Monitors Recovery Plan: PACU
[2016-11-23] MEDS ORDERED: *HR* Etomidate 40 MG/20 ML VIAL IVP ONE (13:16)
[2016-11-23] MEDS ORDERED: *HR* Propofol 200 MG/20 ML VIAL IVP ONE (13:25)
[2016-11-23] MEDS ORDERED: *HR* Etomidate 20 MG/10 ML AMPUL IVP ONE (13:25)
--- NOTE | 2016-11-23 15:01 | Electrocardiograph Report ---
[place] [address] Test Date: 2016-11-23 Pat Name: Anjelica Benavides Department: 112 Room: 2A22 Gender: F Survey Interviewer: KWESI : 1940 Requested By: Laureano Friedman Order Number: [id number] Reading MD: Tenzin Canales MD Measurements Intervals [place] Rate: 84 P: 52 LA: 201 QRS: 7 QRSD: 108 T: 71 QT: 350 QTc: 391 Interpretive Statements SINUS RHYTHM SEPTAL MYOCARDIAL INFARCTION, OF INDETERMINATE AGE Poor R wave progression Electronically Signed On 11-23-2016 15:00:17 EDT by Tenzin Canales MD
--- NOTE | 2016-11-23 17:02 | Internal Med Progress Note ---
Date of Encounter: 11/23/16 Time of Encounter: 09:45 - Assessment and plan (1) Altered mental status, unspecified Current Visit: Yes Status: Chronic Assessment and plan: Patient was awake and alert, interactive room this morning. Patient does have a history of dementia. TToday she is better. Head CT was negative. MRI noted, no new lesions. Urine is negative. Chest x-ray is also negative. Patient appears to be at her baseline. Continue monitoring and anemia workup. Qualifiers: Altered mental status type: unspecified Qualified Code(s): R41.82 - Altered mental status, unspecified (2) CKD (chronic kidney disease) stage 4, GFR 15-29 ml/min Current Visit: Yes Status: Chronic Assessment and plan: Renal function slowly improving. We will continue to monitor labs. We will avoid nephrotoxic agents. (3) DVT prophylaxis Current Visit: No Status: Acute Assessment and plan: Subcutaneous heparin. MIQUEL velazco. (4) Anemia Current Visit: No Status: Chronic Assessment and plan: EGD and colonoscopy noted, gastric erosins and colonic polyps. Recheck hb tomorrow . possible d/c tomorrow in am. Qualifiers: Anemia type: unspecified type Qualified Code(s): D64.9 - Anemia, unspecified (5) COPD (chronic obstructive pulmonary disease) Current Visit: No Status: Chronic Assessment and plan: No exacerbation. Continue to monitor sats and vitals. Qualifiers: COPD type: emphysema Emphysema type: unspecified Qualified Code(s): J43.9 - Emphysema, unspecified (6) Syncope Current Visit: Yes Status: Acute Assessment and plan: Echo finidngs noted, contnue betablockers. Qualifiers: Syncope type: unspecified Qualified Code(s): R55 - Syncope and collapse - Subjective Interval history: patient seen and examined, she i s pleasantly confused, not in dstress, egd and colonoscopy today. - Constitutional Vitals: Temp Pulse Resp BP Pulse Ox 98.2 F 80 16 159/80 98 11/23/16 14:28 11/23/16 15:15 11/23/16 15:15 11/23/16 15:15 11/23/16 15:15 General appearance: Present: cooperative, A&O X 2, pleasant, no acute distress. Absent: severe distress, answers questions appropriately - Head Head exam: Present: atraumatic, normocephalic - Eye Eye exam: Present: PERRL, conjuntiva pink, sclera anicteric Pupils: Present: PERRL - Neck Neck exam general surgery: Present: supple, trachea midline. Absent: lymphadenopathy - Respiratory Respiratory exam: Present: CTAB. Absent: accessory muscle use, rales, rhonchi, wheezes - Cardiovascular Cardiovascular exam: Present: RRR, +S1, +S2. Absent: diastolic murmur, gallop, rubs, systolic murmur - GI/Abdominal GI/Abdominal exam: Present: normal bowel sounds, soft, no peritoneal signs. Absent: distended, tenderness - Extremities Exam Extremities exam: Present: warm, radial pulses palpable and symetrical. Absent : calf tenderness, cyanotic, pedal edema - Neurological Exam Neurological exam: Present: CN II-XII intact, oriented X3, no focal deficits. Absent: pronater drift, facial droop, speech deficit - Skin Skin exam: Present: dry, intact Internal Medicine: Result - Labs CBC & Chem 7: 11/23/16 09:16 11/23/16 09:16 Labs: Short CBC 11/23/16 Range/Units 09:16 Hgb 10.1 L (11.5-15.4) g/dL Hct 31.7 L (35.3-44.9) % BMP 11/23/16 09:16 Sodium 142 Potassium 3.9 Chloride 109 Carbon Dioxide 24 BUN 16 Creatinine 2.34 H Glucose 109 H Calcium 10.0 Consult Discharge Plan - Plan Referrals: Ross Resendez DO [Primary Care Provider] - 11/29/16 10:00 am ()
[2016-11-23] MEDS: Famotidine 20 MG TABLET PO SCH (21:53)
[2016-11-24] MEDS: *HR* Heparin 5,000 UNIT/ML VIAL SQ SCH ×2 (05:12→17:19)
[2016-11-24 06:00] LABS: Basophils % 0.3 %; Eosinophils # 0.2 K/mcL (0.0-0.6); Eosinophils % 2.2 %; Hematocrit 30.2 % (35.3-44.9); Hemoglobin 9.7 g/dL (11.5-15.4); Immature Granulocytes % 0.5 % (0-4); Lymphocytes # 1.8 K/mcL (0.6-4.6); Lymphocytes % 16.8 %; Mean Corpuscular HGB Conc 32.1 g/dL (31.6-35.5); Mean Corpuscular Hemoglobin 31.6 pg (28.0-33.3); Mean Corpuscular Volume 98.4 fL (83.0-100.0); Mean Platelet Volume 11.6 fL (9.4-12.4); Monocytes # 0.7 K/mcL (0.0-1.3); Monocytes % 6.6 %; Neutrophils # 7.7 K/mcL (1.6-8.9); Platelet Count 179 K/mcL (140-400); Red Blood Count 3.07 M/mcL (3.82-4.97); Red Cell Distribution Width 13.9 % (11.5-14.5); Segmented Neutrophils % 73.6 %
[2016-11-24 06:19] LABS: Calcium 9.8 mg/dL (8.6-10.8); Potassium 3.6 mEq/L (3.5-4.5)
[2016-11-24] MEDS: Lactobacillus 1 EACH CAP.SPRINK PO SCH ×2 (11:13→21:27)
[2016-11-24] MEDS: Aspirin Enteric Coated 81 MG Tablet PO SCH (11:14)
[2016-11-24] MEDS: Folic Acid 1 MG TABLET PO SCH (11:14)
[2016-11-24] MEDS: Metoprolol XL (24 HR) Succ 50 MG TAB.ER.24H PO SCH (11:14)
[2016-11-24] MEDS: Venlafaxine XR (24 HR) 75 MG CAP.ER.24H PO SCH (11:14)
[2016-11-24] MEDS: hydrALAZINE 25 MG TABLET PO SCH ×2 (11:14→21:28)
--- NOTE | 2016-11-24 15:55 | Discharge Summary ---
Date of Encounter: 11/24/16 Time of Encounter: 10:00 - Discharge Diagnosis (1) Altered mental status, unspecified Priority: Primary Status: Chronic Qualifiers: Altered mental status type: unspecified Qualified Code(s): R41.82 - Altered mental status, unspecified (2) CKD (chronic kidney disease) stage 4, GFR 15-29 ml/min Priority: Secondary Status: Chronic (3) DVT prophylaxis Priority: Secondary Status: Acute (4) Anemia Priority: Secondary Status: Chronic Qualifiers: Anemia type: unspecified type Qualified Code(s): D64.9 - Anemia, unspecified (5) COPD (chronic obstructive pulmonary disease) Priority: Secondary Status: Chronic Qualifiers: COPD type: emphysema Emphysema type: unspecified Qualified Code(s): J43.9 - Emphysema, unspecified (6) Syncope Priority: Secondary Status: Acute Qualifiers: Syncope type: unspecified Qualified Code(s): R55 - Syncope and collapse (7) Gastritis and duodenitis Priority: Secondary Status: Acute - Discharge Medications Prescriptions: Metoprolol XL (24 HR) Succ [Toprol Xl] 50 mg PO DAILY #30 tab.er.24h Pantoprazole Sodium [Protonix] 40 mg PO DAILY #30 granpkt.dr Home Medications: Calcitriol [Rocaltrol] 0.5 mcg PO QAM 04/28/15 [History] Ergocalciferol (VITAMIN D2) [Vitamin D2 (50,000 UNIT)] 50,000 unit PO QWEEK [History] HydrALAZINE 25 mg PO BID 04/28/15 [History] Nitroglycerin [Nitrostat] 0.4 mg SL Q5M PRN 04/28/15 [History] Pregabalin [Lyrica] 50 mg PO BID 04/28/15 [History] Tolterodine Tartrate [Detrol] 1 mg PO BID 10/15/15 [History] Ipratropium/Albuterol Neb [Duoneb] 3 ml IH Q4HR PRN 12/23/15 [History] Lactobacillus Acidophilus [Acidophilus] 1 cap PO BID 12/23/15 [History] Folic Acid 1 mg PO DAILY #30 tablet 01/10/16 [Rx] Albuterol Sulfate [Albuterol Inhaler] 2 puff IH Q4HR #1 hfa.aer.ad 09/23/16 [Rx] Cyanocobalamin (B-12) [Vitamin B12] 1,000 mcg IM QMONTH #12 vial 11/18/16 [Rx] Aspirin Enteric Coated [Aspirin EC] 81 mg PO DAILY 11/19/16 [History] Budesonide/Formoterol 160/4.5 [Symbicort 160/4.5] 2 puff IH BIDR 11/19/16 [ History] Mirtazapine [Remeron] 15 mg PO HS 11/19/16 [History] Oxygen 1 each .ROUTE AD 11/19/16 [History] Simvastatin [Zocor] 40 mg PO HS 11/19/16 [History] Tizanidine HCl 4 mg PO HS PRN 11/19/16 [History] Venlafaxine HCl [Venlafaxine HCl ER] 75 mg PO DAILY 11/19/16 [History] Metoprolol XL (24 HR) Succ [Toprol Xl] 50 mg PO DAILY #30 tab.er.24h 11/24/16 [ Rx] Pantoprazole Sodium [Protonix] 40 mg PO DAILY #30 granpkt.dr 11/24/16 [Rx] Allergies/Adverse Reactions: Allergies clonazepam [From Klonopin] Allergy (Verified 10/15/15 16:47) See Comments unsure of reaction prasugrel [From Effient] Allergy (Verified 10/15/15 16:47) See Comments Brain hermorrhage Procedures/tests Complete & Pending: Procedures Performed prior 72 hours Category Date Time Status ECG 12 lead ECG [ECG] Routine Y 11/23/16 04:09 Completed Date of admission: 11/22/16 17:51 Primary care physician: Ross Resendez DO Discharging clinician: Laureano Friedman Anticipated date of discharge: 11/24/16 - Patient Status Disposition: Transfer SNF Condition: Fair Functional capacity at discharge: uses cane/walker Overall status at discharge: patient is not back to baseline - Discharge Instructions Follow Up With: Ross Resendez DO [Primary Care Provider] - 11/29/16 10:00 am () - Diet and Activity Activity: as per physical therapy Diet: advance to your usual diet Interval History: Ms. Benavides is a 76 year old female with a history of a heart murmur, COPD, CKD, CAD, craniotomy due to head bleed, hypertension. Patient was found in the floor today by home health nurse. Daughter was at bedside and relates all of history. She said that patient has insomnia stays up most of the night. Patient had a femur x-ray CT of the C-spine and head CT were all negative for acute injury. Patient does not appear to have any bruising or injuries immediately apparent. Patient is drowsy but awakens very briefly to verbal stimuli and then falls immediately back to sleep. Monitor is normal sinus rhythm with occasional PVCs rate 82 French is 95% on room air, respirations are 20, blood pressure is 123/80. Patient has been going to the cancer Center recently for B12 infusions, and was told that if she did not start feeling better and her labs improved, she was going to have a bone marrow biopsy. Daughter says that she will not consent to that. Daughter reports for the last couple of months patient has been declining mentally and has been having hallucinations. She says it patient constantly feels full and is not eating as much, she has had a 3 pound weight loss every week for the last 3 weeks. She does have home health and is being followed closely by them and at the cancer center. Hospital course: Ms. Benavides is a 76 year old female with a due to syncope and altered mental status. Underlying dementia. TTE 11/20/16: LVEF >70%, SHAUNA with severe LVOT. LVOT likely worsened by recent poor po intake and weight loss over the past few weeks, may have caused syncopal episode. Evaluated by cardiology, betablocker to minimize HR and LVOT obstruction. Avg HR =82, no significant pause/event. Will continue with 50 mg daily. There is an indeterminate low attenuation foci noted in the liver. Solid lesion cannot be excluded. Recommend further evaluation with MRI which was ordered. MRI revealed a liver cyst for which sonographic monitoring was recommended. In light of anemia a consultation with gastroenterology was called, both EGD and colonoscopy were obtained. EGD revealed duodenitis and gastritis with erosions. Biopsies were taken. Patient was started on PPIs. Colonoscopy revealed polyps which were removed. Recommendation was to repeat a colonoscopy in 3 years. Patient's mental status returned back to her baseline. Her kidney function is stable, she has an underlying chronic kidney disease with a GFR below 20. I will stop the losartan at this point. Otherwise we will continue with her medications for hypertension including hydralazine and the beta sole. The patient will be discharged to extended care facility according to recommendations by our physical therapy team, will be discharged with PPI due to her gastritis and duodenitis. - Time Spent with Patient Total time spent providing and/or coordinating discharge services: - Constitutional Vitals: Temp Pulse Resp BP Pulse Ox 99.8 F H 74 20 131/69 94 11/24/16 15:43 11/24/16 15:43 11/24/16 15:43 11/24/16 15:43 11/24/16 15:43 General appearance: Present: cooperative, A&O X 2, pleasant, no acute distress. Absent: severe distress, answers questions appropriately - Head Head exam: Present: atraumatic, normocephalic - Eye Eye exam: Present: PERRL, conjuntiva pink, sclera anicteric Pupils: Present: PERRL - Neck Neck exam general surgery: Present: supple, trachea midline. Absent: lymphadenopathy - Respiratory Respiratory exam: Present: CTAB. Absent: accessory muscle use, rales, rhonchi, wheezes - Cardiovascular Cardiovascular exam: Present: RRR, +S1, +S2. Absent: diastolic murmur, gallop, rubs, systolic murmur - GI/Abdominal GI/Abdominal exam: Present: normal bowel sounds, soft, no peritoneal signs. Absent: distended, tenderness - Extremities Exam Extremities exam: Present: warm, radial pulses palpable and symetrical. Absent : calf tenderness, cyanotic, pedal edema - Neurological Exam Neurological exam: Present: CN II-XII intact, oriented X3, no focal deficits. Absent: pronater drift, facial droop, speech deficit - Skin Skin exam: Present: dry, intact
--- NOTE | 2016-11-24 16:20 | Physician Discharge Referral ---
ExtendedCare Referral Info Transfer To: [facility] - Diagnosis (1) Altered mental status, unspecified Status: Chronic (2) CKD (chronic kidney disease) stage 4, GFR 15-29 ml/min Status: Chronic (3) DVT prophylaxis Status: Acute (4) Anemia Status: Chronic (5) COPD (chronic obstructive pulmonary disease) Status: Chronic (6) Syncope Status: Acute (7) Gastritis and duodenitis Status: Acute - Transfer Medications Prescriptions: Metoprolol XL (24 HR) Succ [Toprol Xl] 50 mg PO DAILY #30 tab.er.24h Pantoprazole Sodium [Protonix] 40 mg PO DAILY #30 granpkt.dr Home Medications: Calcitriol [Rocaltrol] 0.5 mcg PO QAM 04/28/15 [History] Ergocalciferol (VITAMIN D2) [Vitamin D2 (50,000 UNIT)] 50,000 unit PO QWEEK [History] HydrALAZINE 25 mg PO BID 04/28/15 [History] Nitroglycerin [Nitrostat] 0.4 mg SL Q5M PRN 04/28/15 [History] Pregabalin [Lyrica] 50 mg PO BID 04/28/15 [History] Tolterodine Tartrate [Detrol] 1 mg PO BID 10/15/15 [History] Ipratropium/Albuterol Neb [Duoneb] 3 ml IH Q4HR PRN 12/23/15 [History] Lactobacillus Acidophilus [Acidophilus] 1 cap PO BID 12/23/15 [History] Folic Acid 1 mg PO DAILY #30 tablet 01/10/16 [Rx] Albuterol Sulfate [Albuterol Inhaler] 2 puff IH Q4HR #1 hfa.aer.ad 09/23/16 [Rx] Cyanocobalamin (B-12) [Vitamin B12] 1,000 mcg IM QMONTH #12 vial 11/18/16 [Rx] Aspirin Enteric Coated [Aspirin EC] 81 mg PO DAILY 11/19/16 [History] Budesonide/Formoterol 160/4.5 [Symbicort 160/4.5] 2 puff IH BIDR 11/19/16 [ History] Mirtazapine [Remeron] 15 mg PO HS 11/19/16 [History] Oxygen 1 each .ROUTE AD 11/19/16 [History] Simvastatin [Zocor] 40 mg PO HS 11/19/16 [History] Tizanidine HCl 4 mg PO HS PRN 11/19/16 [History] Venlafaxine HCl [Venlafaxine HCl ER] 75 mg PO DAILY 11/19/16 [History] Metoprolol XL (24 HR) Succ [Toprol Xl] 50 mg PO DAILY #30 tab.er.24h 11/24/16 [ Rx] Pantoprazole Sodium [Protonix] 40 mg PO DAILY #30 granpkt.dr 11/24/16 [Rx] Allergies/Adverse Reactions: Allergies clonazepam [From Klonopin] Allergy (Verified 10/15/15 16:47) See Comments unsure of reaction prasugrel [From Effient] Allergy (Verified 10/15/15 16:47) See Comments Brain hermorrhage - Respiratory Orders Smoking Cessation: Smoking cessation has been advised. For more information, call the [employer] Tobacco Quit Line at 3-220-QUFI-NOW. - Advance Directives Code Status: Full Code - Mobility Orders Ambulate - Rehabiliation Orders Rehab Potential: Fair Rehab Orders: ROM Exercises, Evaluation for Physical Therapy, Evaluation for Occupational Therapy - Diet Orders Cardiac CERTIFICATION: I certify that the transfer of the above named patient to an Extended Care Facility is necessary for the continuing treatment of the diagnosis listed. The above information is true and accurate reflection of patient's current condition. Confidential - Redisclosure prohibited without a patient's written consent.
[2016-11-25 05:45] LABS: Calcium 10.3 mg/dL (8.6-10.8); Potassium 3.8 mEq/L (3.5-4.5)
[2016-11-25 05:55] LABS: Basophils % 0.3 %; Eosinophils # 0.3 K/mcL (0.0-0.6); Immature Granulocytes % 0.4 % (0-4); Lymphocytes # 1.8 K/mcL (0.6-4.6); Mean Corpuscular HGB Conc 32.3 g/dL (31.6-35.5); Mean Corpuscular Hemoglobin 31.3 pg (28.0-33.3); Mean Corpuscular Volume 97.2 fL (83.0-100.0); Mean Platelet Volume 11.9 fL (9.4-12.4); Monocytes # 0.7 K/mcL (0.0-1.3); Neutrophils # 6.7 K/mcL (1.6-8.9); Platelet Count 196 K/mcL (140-400); Red Blood Count 3.19 M/mcL (3.82-4.97); Red Cell Distribution Width 13.5 % (11.5-14.5); Segmented Neutrophils % 70.3 %
[2016-11-25] MEDS: *HR* Heparin 5,000 UNIT/ML VIAL SQ SCH (06:19)
[2016-11-25] MEDS: Venlafaxine XR (24 HR) 75 MG CAP.ER.24H PO SCH (08:08)
[2016-11-25] MEDS: Aspirin Enteric Coated 81 MG Tablet PO SCH (08:08)
[2016-11-25] MEDS: Folic Acid 1 MG TABLET PO SCH (08:08)
[2016-11-25] MEDS: hydrALAZINE 25 MG TABLET PO SCH (08:08)
[2016-11-25] MEDS: Lactobacillus 1 EACH CAP.SPRINK PO SCH (08:08)
[2016-11-25] MEDS: Metoprolol XL (24 HR) Succ 50 MG TAB.ER.24H PO SCH (08:08)
--- NOTE | 2016-11-25 10:08 | Internal Med Progress Note ---
Date of Encounter: 11/25/16 Time of Encounter: 10:07 - Assessment and plan (1) Altered mental status, unspecified Current Visit: Yes Status: Chronic Assessment and plan: Patient was awake and alert, interactive room this morning. Patient does have a history of dementia. stable, awaiting transfer to e[facility] Qualifiers: Altered mental status type: unspecified Qualified Code(s): R41.82 - Altered mental status, unspecified (2) CKD (chronic kidney disease) stage 4, GFR 15-29 ml/min Current Visit: Yes Status: Chronic (3) DVT prophylaxis Current Visit: No Status: Acute (4) Anemia Current Visit: No Status: Chronic Assessment and plan: EGD and colonoscopy noted, gastric erosins and colonic polyps. hb stable, d/c yesterday, awaiitng trafer to ecf. Qualifiers: Anemia type: unspecified type Qualified Code(s): D64.9 - Anemia, unspecified (5) COPD (chronic obstructive pulmonary disease) Current Visit: No Status: Chronic Qualifiers: COPD type: emphysema Emphysema type: unspecified Qualified Code(s): J43.9 - Emphysema, unspecified (6) Syncope Current Visit: Yes Status: Acute Assessment and plan: Echo finidngs noted, contnue betablockers. Qualifiers: Syncope type: unspecified Qualified Code(s): R55 - Syncope and collapse (7) Gastritis and duodenitis Current Visit: Yes Status: Acute - Subjective Interval history: patient seen and examined, she i s pleasantly confused, not in dstress, awaiting placement - Constitutional Vitals: Temp Pulse Resp BP Pulse Ox 98.1 F 89 16 165/83 94 11/25/16 08:06 11/25/16 08:06 11/25/16 08:06 11/25/16 08:06 11/25/16 09:56 General appearance: Present: cooperative, A&O X 2, pleasant, no acute distress. Absent: severe distress, answers questions appropriately - Head Head exam: Present: atraumatic, normocephalic - Eye Eye exam: Present: PERRL, conjuntiva pink, sclera anicteric Pupils: Present: PERRL - Neck Neck exam general surgery: Present: supple, trachea midline. Absent: lymphadenopathy - Respiratory Respiratory exam: Present: CTAB. Absent: accessory muscle use, rales, rhonchi, wheezes - Cardiovascular Cardiovascular exam: Present: RRR, +S1, +S2. Absent: diastolic murmur, gallop, rubs, systolic murmur - GI/Abdominal GI/Abdominal exam: Present: normal bowel sounds, soft, no peritoneal signs. Absent: distended, tenderness - Extremities Exam Extremities exam: Present: warm, radial pulses palpable and symetrical. Absent : calf tenderness, cyanotic, pedal edema - Neurological Exam Neurological exam: Present: CN II-XII intact, oriented X3, no focal deficits. Absent: pronater drift, facial droop, speech deficit - Skin Skin exam: Present: dry, intact Internal Medicine: Result - Labs CBC & Chem 7: 11/25/16 03:51 11/25/16 03:51 Labs: Short CBC 11/25/16 Range/Units 03:51 WBC 9.5 (4.3-11.1) K/mcL Hgb 10.0 L (11.5-15.4) g/dL Hct 31.0 L (35.3-44.9) % Plt Count 196 (140-400) K/mcL Neutrophils # 6.7 (1.6-8.9) K/mcL BMP 11/25/16 03:51 Sodium 140 Potassium 3.8 Chloride 106 Carbon Dioxide 24 BUN 19 Creatinine 2.47 H Glucose 91 Calcium 10.3 Consult Discharge Plan - Plan Referrals: Ross Resendez DO [Primary Care Provider] - 11/29/16 10:00 am () Prescriptions: Metoprolol XL (24 HR) Succ [Toprol Xl] 50 mg PO DAILY #30 tab.er.24h Pantoprazole Sodium [Protonix] 40 mg PO DAILY #30 granpkt.
[2016-11-25 17:02] VITALS: BP 148/84
== END 2016-11-25 18:01 | DRG 884 ==
LOC: 2ANU 13:12 → EMEROO 13:12 → 2ANU 17:30
PROVIDERS: ADMIT Internal Medicine; ATTEND Internal Medicine

== ENCOUNTER 2017-02-25 21:21 | Inpatient (IN) ==
--- NOTE | 2017-02-25 21:38 | Emergency Department Note ---
Disposition Clinical Impression: RADHA (acute kidney injury) COPD (chronic obstructive pulmonary disease) Qualifiers: COPD type: COPD with acute exacerbation Qualified Code(s): J44.1 - Chronic obstructive pulmonary disease with (acute) exacerbation Anemia Qualifiers: Anemia type: unspecified type Qualified Code(s): D64.9 - Anemia, unspecified Disposition: Admitted As Inpatient Condition: Good Time of Disposition: 06:53 General Adult HPI - General Chief complaint: ED Shortness of Breath/Dyspnea Stated complaint: SOB Time Seen by Provider: 02/25/17 21:37 Nursing Notes Reviewed: Yes Vital Signs Reviewed: Yes - History of Present Illness HPI Narrative: Patient pleasantly demented sent from assisted for cough. Patient is unable to provide any history. She does report that she is having shortness of breath. Denies any chest pain or belly pain however she is demented. - Related Data Home Medications Medication Instructions Recorded Confirmed Calcitriol [Rocaltrol] 0.5 mcg PO QAM 04/28/15 02/26/17 Ergocalciferol (VITAMIN D2) 50,000 unit PO QWEEK 04/28/15 02/26/17 [Vitamin D2 (50,000 UNIT)] Nitroglycerin [Nitrostat] 0.4 mg SL Q5M PRN 04/28/15 02/26/17 Ipratropium/Albuterol Neb [Duoneb] 3 ml IH Q4HR PRN 12/23/15 02/26/17 Aspirin Enteric Coated [Aspirin EC] 81 mg PO DAILY 11/19/16 02/26/17 Oxygen 1 each .ROUTE AD 11/19/16 02/26/17 Simvastatin [Zocor] 40 mg PO HS 11/19/16 02/26/17 Tizanidine HCl 4 mg PO HS PRN 11/19/16 02/26/17 Previous Rx's Medication Instructions Recorded Folic Acid 1 mg PO DAILY #30 tablet 01/10/16 Cyanocobalamin (B-12) [Vitamin B12] 1,000 mcg IM QMONTH #12 vial 11/18/16 Metoprolol XL (24 HR) Succ [Toprol 50 mg PO DAILY #30 tab.er.24h 11/24/16 Xl] Pantoprazole Sodium [Protonix] 40 mg PO DAILY #30 11/24/16 Allergies Allergy/AdvReac Type Severity Reaction Status Date / Time clonazepam [From Klonopin] Allergy See Verified 10/15/15 16:47 Comments prasugrel [From Effient] Allergy See Verified 10/15/15 16:47 Comments Limitations: ROS unobtainable due to patients medical condition (Patient pleasantly confused.) Past Medical History - Past Medical History Attestation: Yes The following information was validated with the patient. Source: patient Medical history: Reports: coronary artery disease, hypertension, osteoporosis, renal disease Surgical history: Reports: angioplasty/stent, appendectomy, hysterectomy Psychiatric history: Reports: anxiety, depression - Social History Smoking Status: Former smoker Smokeless Tobacco Status: No Alcohol use: Reports: rarely Drug use: Reports: none Physical Exam - General Limitations: no limitations General appearance: alert, in no apparent distress - Head Head exam: atraumatic, normocephalic, normal inspection - Eye Eye exam: Present: normal appearance, PERRL, EOMI - ENT ENT exam: normal exam, normal oropharynx, mucous membranes moist - Neck Neck exam: Present: normal inspection, full ROM, trachea midline. Absent: tenderness, meningismus, lymphadenopathy - Chest Chest inspection: Present: normal inspection, symmetric chest wall rise. Absent : tenderness - Respiratory Respiratory exam: Present: respiratory distress, wheezes (Diffusely), prolonged expiratory phase. Absent: accessory muscle use - Cardiovascular Cardiovascular exam: Present: regular rate, normal rhythm, normal heart sounds - Abdominal Exam Abdominal exam: Present: soft, Non-Tender. Absent: tenderness, distention, guarding, rebound, rigidity, organomegaly - Extremities Exam Extremities exam: Present: normal inspection, full ROM, normal capillary refill. Absent: tenderness, pedal edema - Back Exam Back exam: Present: normal inspection, full ROM. Absent: tenderness, CVA tenderness (R), CVA tenderness (L) - Neurological Exam Neurological exam: Present: alert, other (Pleasantly demented) - Psychiatric Psychiatric exam: Present: normal affect, normal mood - Skin Skin exam: Present: warm, dry, intact, normal color. Absent: rash, cyanosis Course Course Narrative: Demented female patient brought from the assisted for shortness of breath. She states all day she has been short of breath. Her lung sounds are tight throughout. She has been given 1 DuoNeb in the ambulance. We will order her a duo neb while she is here. She has no other complaints at this time. However she is only alert to her name. Her abdomen is soft and nontender. She is nonfebrile. We will get a chest x-ray and basic lab workup on patient. She has no signs of edema to her extremities. She appears to be in moderate respiratory distress. - Reevaluation(s) Reevaluation #1: Patient's chest x-ray showed some interstitial edema. She does not have any signs of fluid overload to her extremities. She is also anemic, she is here. I do not appreciate any signs of bleeding at this time. She has acute on chronic kidney injury. Her lung sounds have cleared with a duo nebs and steroids. We will admit patient for her new onset anemia as well as COPD exacerbation. - Consultations Consultation #1: Dr Lopez excepted patient's stable condition. He is requesting a fecal occult stool blood. We have ordered this. Time: 01:57 Vital Signs Temperature 98.6 F 02/25/17 21:30 Pulse Rate 99 02/25/17 21:30 Respiratory Rate 28 02/25/17 21:30 Blood Pressure 128/79 02/25/17 21:30 O2 Sat by Pulse Oximetry 93 02/25/17 21:30 Temperature 97.4 F L 02/26/17 06:43 Pulse Rate 95 02/26/17 06:43 Respiratory Rate 20 02/26/17 06:43 Blood Pressure 120/68 02/26/17 06:43 O2 Sat by Pulse Oximetry 94 02/26/17 06:43 Oxygen Delivery Oxygen Delivery Nasal Cannula Medical Decision Making - Medical Records Medical records reviewed: Yes I reviewed the patient's medical records. - Lab Data Lab results reviewed: Yes I reviewed the patient's lab results. Result diagrams: 02/25/17 21:54 02/25/17 21:54 Lab Results 02/25/17 02/25/17 02/25/17 Range/Units 21:54 21:54 21:54 WBC 14.5 H (4.3-11.1) K/mcL RBC 2.49 L (3.82-4.97) M/mcL Hgb 7.6 L (11.5-15.4) g/dL Hct 24.4 L (35.3-44.9) % MCV 98.0 (83.0-100.0) fL MCH 30.5 (28.0-33.3) pg MCHC 31.1 L (31.6-35.5) g/dL RDW 14.9 H (11.5-14.5) % Plt Count 309 (140-400) K/mcL MPV 10.5 (9.4-12.4) fL Immature Gran % 0.8 (0-4) % Seg Neutrophils % 85.3 % Lymphocytes % 6.1 % Monocytes % 7.2 % Eosinophils % 0.3 % Basophils % 0.3 % Neutrophils # 12.4 H (1.6-8.9) K/mcL Lymphocytes # 0.9 (0.6-4.6) K/mcL Monocytes # 1.0 (0.0-1.3) K/mcL Eosinophils # 0.0 (0.0-0.6) K/mcL Basophils # 0.0 (0.0-0.2) K/mcL Dohle Bodies Present A (Not Present) Sodium 135 L (136-145) mEq/L Potassium 4.5 (3.5-4.5) mEq/L Chloride 103 (98-109) mEq/L Carbon Dioxide 22 (19-29) mEq/L BUN 58 H (7-20) mg/dL Creatinine 4.15 H (0.57-1.11) mg/dL Est GFR ( Amer) 13 L (> 60) Est GFR (Non-Af Amer) 10 L (> 60) BUN/Creatinine Ratio 14 (6-26) Glucose 99 (70-99) mg/dL Calculated Osmolality 296 (280-300) Lactic Acid 0.9 (0.5-2.2) mmol/L Calcium 9.9 (8.6-10.8) mg/dL Troponin I (0-0.03) ng/mL B-Natriuretic Peptide (0-100) pg/mL Blood Type Antibody Screen Crossmatch 02/25/17 02/25/17 02/25/17 Range/Units 21:54 21:54 23:55 WBC (4.3-11.1) K/mcL RBC (3.82-4.97) M/mcL Hgb (11.5-15.4) g/dL Hct (35.3-44.9) % MCV (83.0-100.0) fL MCH (28.0-33.3) pg MCHC (31.6-35.5) g/dL RDW (11.5-14.5) % Plt Count (140-400) K/mcL MPV (9.4-12.4) fL Immature Gran % (0-4) % Seg Neutrophils % % Lymphocytes % % Monocytes % % Eosinophils % % Basophils % % Neutrophils # (1.6-8.9) K/mcL Lymphocytes # (0.6-4.6) K/mcL Monocytes # (0.0-1.3) K/mcL Eosinophils # (0.0-0.6) K/mcL Basophils # (0.0-0.2) K/mcL Dohle Bodies (Not Present) Sodium (136-145) mEq/L Potassium (3.5-4.5) mEq/L Chloride (98-109) mEq/L Carbon Dioxide (19-29) mEq/L BUN (7-20) mg/dL Creatinine (0.57-1.11) mg/dL Est GFR ( Amer) (> 60) Est GFR (Non-Af Amer) (> 60) BUN/Creatinine Ratio (6-26) Glucose (70-99) mg/dL Calculated Osmolality (280-300) Lactic Acid 1.1 (0.5-2.2) mmol/L Calcium (8.6-10.8) mg/dL Troponin I 0.03 (0-0.03) ng/mL B-Natriuretic Peptide 196 H (0-100) pg/mL Blood Type Antibody Screen Crossmatch 02/25/17 Range/Units 23:55 WBC (4.3-11.1) K/mcL RBC (3.82-4.97) M/mcL Hgb (11.5-15.4) g/dL Hct (35.3-44.9) % MCV (83.0-100.0) fL MCH (28.0-33.3) pg MCHC (31.6-35.5) g/dL RDW (11.5-14.5) % Plt Count (140-400) K/mcL MPV (9.4-12.4) fL Immature Gran % (0-4) % Seg Neutrophils % % Lymphocytes % % Monocytes % % Eosinophils % % Basophils % % Neutrophils # (1.6-8.9) K/mcL Lymphocytes # (0.6-4.6) K/mcL Monocytes # (0.0-1.3) K/mcL Eosinophils # (0.0-0.6) K/mcL Basophils # (0.0-0.2) K/mcL Dohle Bodies (Not Present) Sodium (136-145) mEq/L Potassium (3.5-4.5) mEq/L Chloride (98-109) mEq/L Carbon Dioxide (19-29) mEq/L BUN (7-20) mg/dL Creatinine (0.57-1.11) mg/dL Est GFR ( Amer) (> 60) Est GFR (Non-Af Amer) (> 60) BUN/Creatinine Ratio (6-26) Glucose (70-99) mg/dL Calculated Osmolality (280-300) Lactic Acid (0.5-2.2) mmol/L Calcium (8.6-10.8) mg/dL Troponin I (0-0.03) ng/mL B-Natriuretic Peptide (0-100) pg/mL Blood Type O NEGATIVE Antibody Screen NEGATIVE Crossmatch See Detail - Radiology Data Radiology results reviewed: Yes I reviewed the patient's radiology results. Chest X-Ray 02/25/17 21:43 IMPRESSION: Some prominence of the interstitial markings suggesting interstitial edema. D/ / Tarsha Somers Cha, MD / Tarsha Somers Cha, MD Interpreting Provider: Tarsha Somers Cha, MD - EKG Data EKG #1 EKG attestation: Yes I reviewed and interpreted this EKG. EKG results narrative: Normal sinus rhythm at a rate of 99. MD interval is 176. QRS duration is 109. QT is 312. QTC is 368. No signs of acute ischemia. No significant change from previous EKG dated 11/23/2016. Critical Care Time Critical Care Time: Yes Total Critical Care Time: 35 Attestation: Critical care performed: Time is exclusive of separately billable procedures. Time includes: direct patient care, patient reassessment, coordination of patient care, interpretation of data (laboratory data, radiology data, and respiratory data), review of patient's medical records, medical consultation and documentation of patient care. Procedures included in critical care time: Procedures excluded from critical care time: Attestation Statement - Attestation Attestation: I, Roosevelt Harmon MD, personally evaluated this patient and discussed their management with the resident physician. I reviewed the resident's note and agree with the documented findings, medical decision making, and plan of care. 76-year-old female sent to the emergency department from an extended care facility for evaluation of increased shortness of breath. Patient has dementia and really unable to provide a significant history. She does admit to feeling short of breath today. She denies chest pain. On examination patient is a well-developed well-nourished elderly female in no acute distress but is tachypneic. There is no cyanosis or diaphoresis. Breath sounds are markedly decreased bilaterally with bilateral expiratory wheezes. Heart regular with a mild tachycardia. Abdomen is soft and nontender with normal bowel sounds. Chest x-ray suggestive of interstitial edema. Labs reviewed. Anemia. Acute kidney injury with creatinine greater than 4. EKG shows a sinus rhythm with a heart rate of 99. LVH with nonspecific ST and T-wave changes. The hospitalist, Dr. Lopez, was consulted and accepted admission of the patient.
[2017-02-25] MEDS ORDERED: Ipratropium/Albuterol Neb 3 ML IH ONE (21:44)
[2017-02-25] MEDS ORDERED: methylPREDNISolone 125 MG/2 ML VIAL IVP ONE (22:02)
[2017-02-25 22:04] LABS: Basophils % 0.3 %; Eosinophils % 0.3 %; Hematocrit 24.4 % (35.3-44.9); Immature Granulocytes % 0.8 % (0-4); Lymphocytes # 0.9 K/mcL (0.6-4.6); Lymphocytes % 6.1 %; Mean Corpuscular HGB Conc 31.1 g/dL (31.6-35.5); Mean Corpuscular Hemoglobin 30.5 pg (28.0-33.3); Mean Platelet Volume 10.5 fL (9.4-12.4); Monocytes % 7.2 %; Neutrophils # 12.4 K/mcL (1.6-8.9); Platelet Count 309 K/mcL (140-400); Red Blood Count 2.49 M/mcL (3.82-4.97); Red Cell Distribution Width 14.9 % (11.5-14.5); Segmented Neutrophils % 85.3 %
[2017-02-25 22:15] LABS: Calcium 9.9 mg/dL (8.6-10.8); Potassium 4.5 mEq/L (3.5-4.5)
[2017-02-25 22:23] LABS: Hemoglobin 7.6 g/dL (11.5-15.4)
[2017-02-25 22:25] LABS: Dohle Bodies Present (Not Present)
[2017-02-26] MEDS ORDERED: Levofloxacin 750 MG/150 ML 750 MG/150 ML BAG IVPB SCH (05:00)
[2017-02-26] MEDS ORDERED: 0.9 % Sodium Chloride 250 ML ONE ×2 (06:34→16:36)
[2017-02-26] MEDS ORDERED: Naloxone 0.4 MG/ML INJ IVP PRN (09:04)
[2017-02-26] MEDS ORDERED: Acetaminophen 325 MG TABLET PO PRN (09:04)
[2017-02-26] MEDS ORDERED: Ipratropium/Albuterol Neb 3 ML IH PRN (09:09)
[2017-02-26] MEDS ORDERED: tiZANidine 4 MG TABLET PO PRN (09:12)
[2017-02-26] MEDS ORDERED: Nitroglycerin 0.4 MG TAB.SUBL SL PRN (09:12)
[2017-02-26] MEDS ORDERED: Cyanocobalamin (B-12) 1,000 MCG/ML VIAL IM SCH (09:15)
[2017-02-26] MEDS ORDERED: diazePAM 10 MG/2 ML SYRINGE IVP ONE (09:31)
[2017-02-26] MEDS: 0.9 % Sodium Chloride 1,000 ML IVC SCH (09:59)
[2017-02-26] MEDS: Azithromycin 500 MG in D5% in Water 250 ML IVPB SCH (10:00)
--- NOTE | 2017-02-26 11:02 | Internal Med History&Physical ---
Date of Encounter: 02/26/17 Time of Encounter: 08:00 Assessment and Plan (1) Acute on chronic renal failure Current visit: Yes Status: Acute Patient has history of CKD. Creatinine level is higher than baseline. Consider acute on chronic renal failure. Most likely due to dehydration. We will carefully hydrate the patient. Follow-up renal function. We will obtain renal US to rule out obstruction. Qualifiers: Chronic kidney disease stage: stage 4 (severe) Qualified Code(s): N17.9 - Acute kidney failure, unspecified; N18.4 - Chronic kidney disease, stage 4 ( severe) (2) Acute exacerbation of chronic obstructive airways disease Current visit: No Status: Acute She has a history of COPD. With worsening cough and shortness of breath. Chest x-ray did not show infiltrate. Will treat patient with antibiotic, steroid, and bronchodilator. Oxygen supportive treatment. Closely monitor patient. (3) Dyspnea Current visit: No Status: Acute Due to COPD exacerbation. Treatment as above Qualifiers: Dyspnea type: shortness of breath Qualified Code(s): R06.02 - Shortness of breath; R06.00 - Dyspnea, unspecified; R06.01 - Orthopnea (4) CAD (coronary artery disease) Current visit: No Status: Chronic Denies chest pain. EKG shows no significant ST-T changes. Continue home medications. Qualifiers: Coronary Disease-Associated Artery/Lesion type: [place] artery [place] vs. transplanted heart: [place] heart Associated angina: without angina Qualified Code(s): I25.10 - Atherosclerotic heart disease of [place] coronary artery without angina pectoris (5) Anemia Current visit: No Status: Chronic Patient has anemia. Probably due to CKD. 2 units of PRBC has been ordered by ER. Closer follow-up H&H. No signs of active bleeding at this point. Qualifiers: Anemia type: unspecified type Qualified Code(s): D64.9 - Anemia, unspecified (6) DVT prophylaxis Current visit: No Status: Acute Heparin subcutaneously (7) Dementia Current visit: Yes Status: Acute Qualifiers: Dementia type: Alzheimer's disease Alzheimer's disease onset: other onset Dementia behavioral disturbance: without behavioral disturbance Qualified Code(s): G30.8 - Other Alzheimer's disease; F02.80 - Dementia in other diseases classified elsewhere without behavioral disturbance Internal Medicine - H&P: HPI Chief complaint: Shortness of breath Admitted From: Long-term Nursing Facility Plans for Post Hospital Care: Transfer Intermediate Facility History of present illness: Ms. Benavides is a 76 year old female with history of dementia, COPD, send from longterm for shortness of breath. Patient is demented, AAO 0, history obtained from ER documentation and previous chart. Patient has a cough. No fever. Has shortness of breath. Denies chest pain. In emergency room, WBC is elevated. Chest x-ray shows increased interstitial markings. BNP 196. Creatinine elevated from baseline 2.85 to 4.15. Patient was admitted as COPD exacerbation. Cannot discuss CODE STATUS with patient. Her previous chart has been reviewed. Full code was placed per previous documentation. Past Med Surg Social Fam HX - Past Medical History Medical history: coronary artery disease, hypertension, osteoporosis, renal disease Psychiatric history: anxiety, depression - Past Surgical History Surgical History: angioplasty/stent, appendectomy, hysterectomy - Social History Smoking Status: Former smoker Smokeless Tobacco Status: No Alcohol use: rarely Drug use: none Internal Medicine - H&P: Meds Calcitriol [Rocaltrol] 0.5 mcg PO QAM 04/28/15 [History] Ergocalciferol (VITAMIN D2) [Vitamin D2 (50,000 UNIT)] 50,000 unit PO QWEEK [History] Nitroglycerin [Nitrostat] 0.4 mg SL Q5M PRN 04/28/15 [History] Ipratropium/Albuterol Neb [Duoneb] 3 ml IH Q4HR PRN 12/23/15 [History] Folic Acid 1 mg PO DAILY #30 tablet 01/10/16 [Rx] Cyanocobalamin (B-12) [Vitamin B12] 1,000 mcg IM QMONTH #12 vial 11/18/16 [Rx] Aspirin Enteric Coated [Aspirin EC] 81 mg PO DAILY 11/19/16 [History] Oxygen 1 each .ROUTE AD 11/19/16 [History] Simvastatin [Zocor] 40 mg PO HS 11/19/16 [History] Tizanidine HCl 4 mg PO HS PRN 11/19/16 [History] Metoprolol XL (24 HR) Succ [Toprol Xl] 50 mg PO DAILY #30 tab.er.24h 11/24/16 [ Rx] Pantoprazole Sodium [Protonix] 40 mg PO DAILY #30 granpkt. 11/24/16 [Rx] 3 Allergy/AdvReac Type Severity Reaction Status Date / Time clonazepam [From Klonopin] Allergy See Verified 10/15/15 16:47 Comments prasugrel [From Effient] Allergy See Verified 10/15/15 16:47 Comments All Systems PM: A 10-system review of systems was performed and is negative for pertinent findings except as documented above in the HPI. - Constitutional Vitals: Temp Pulse Resp BP Pulse Ox 97.8 F 94 20 118/70 97 02/26/17 09:53 02/26/17 09:53 02/26/17 09:53 02/26/17 09:53 02/26/17 09:53 General appearance: Present: A&O X 0, mild distress - Head Head exam: Present: atraumatic, normocephalic - Eye Eye exam: Present: PERRL, conjuntiva pink, sclera anicteric Pupils: Present: PERRL - Neck Neck exam general surgery: Present: supple, trachea midline. Absent: lymphadenopathy - Respiratory Respiratory exam: Present: CTAB. Absent: accessory muscle use, rales, rhonchi, wheezes Additional comments: Coarse breath sounds bilaterally. No wheezing. - Cardiovascular Cardiovascular exam: Present: RRR, +S1, +S2. Absent: diastolic murmur, gallop, rubs, systolic murmur - GI/Abdominal GI/Abdominal exam: Present: normal bowel sounds, soft, no peritoneal signs. Absent: distended, tenderness - Extremities Exam Extremities exam: Present: warm, radial pulses palpable and symmetrical. Absent : calf tenderness, cyanotic, pedal edema - Neurological Exam Neurological exam: Present: CN II-XII intact, oriented X3, no focal deficits. Absent: pronater drift, facial droop, speech deficit - Skin Skin exam: Present: dry, intact Internal Med - H&P Results - Labs CBC & Chem 7: 02/25/17 21:54 02/25/17 21:54 - EKG Data -: EKG Interpreted by Myself EKG shows normal: sinus rhythm Rate: normal
[2017-02-26] MEDS: Ipratropium/Albuterol Neb 3 ML IH SCH ×4 (11:19→23:52)
[2017-02-26] MEDS: *HR* Heparin 5,000 UNIT/ML VIAL SQ SCH (18:15)
[2017-02-27] MEDS: Ipratropium/Albuterol Neb 3 ML IH SCH ×5 (04:30→20:05)
[2017-02-27] MEDS: *HR* Heparin 5,000 UNIT/ML VIAL SQ SCH ×2 (06:34→19:16)
--- NOTE | 2017-02-27 08:28 | Internal Med Progress Note ---
<Yogi Morejon - Last Filed: 02/27/17 08:50> Date of Encounter: 02/27/17 Time of Encounter: 08:27 - Assessment and plan (1) Acute exacerbation of chronic obstructive airways disease Current Visit: No Status: Acute Assessment and plan: Hx of COPD. Was brought in due to worsening of cough and SOB. CXR showed no infiltrates. - Abx: azithromycin - ct Steroid - Prednison 40 mg - ct bronchodilators - duoneb - ct O2 support PRN - closely monitor pt (2) Acute on chronic renal failure Current Visit: Yes Status: Acute Assessment and plan: Baseline Cr. 1.8 to 2.5, and CKD4. Cr on admission 4.15. RADHA on CKD most likely from dehydration. was given IVF in ED. Renal U/S - no hydronephrosis, Both kidneys demonstrate increased cortical echogenicity and there is mild right renal atrophy. Findings are compatible with chronic medical renal disease. Moderate postvoid urinary residual. - Will closely monitor Cr - ct. IVF fluids Qualifiers: Chronic kidney disease stage: stage 4 (severe) Qualified Code(s): N17.9 - Acute kidney failure, unspecified; N18.4 - Chronic kidney disease, stage 4 ( severe) (3) Anemia Current Visit: No Status: Chronic Assessment and plan: Hgb 7.6 on admission, likely due to CKD4. 2 units of PRBC were given in ED. no active signs of bleeding - Close monitor of H&H Qualifiers: Anemia type: unspecified type Qualified Code(s): D64.9 - Anemia, unspecified (4) Dementia Current Visit: Yes Status: Acute Assessment and plan: [facility], known hx of dementia. In ED patient was not Oriented - Today Alert + oriented to self and place, not date/time - ct fall precautions and monitoring Qualifiers: Dementia type: Alzheimer's disease Alzheimer's disease onset: other onset Dementia behavioral disturbance: without behavioral disturbance Qualified Code(s): G30.8 - Other Alzheimer's disease; F02.80 - Dementia in other diseases classified elsewhere without behavioral disturbance (5) DVT prophylaxis Current Visit: No Status: Acute Assessment and plan: continue heparin SQ (6) CAD (coronary artery disease) Current Visit: No Status: Chronic Assessment and plan: Denies chest pain. EKG shows no significant ST-T changes. - Continue home medications. Qualifiers: Coronary Disease-Associated Artery/Lesion type: [place] artery [place] vs. transplanted heart: [place] heart Associated angina: without angina Qualified Code(s): I25.10 - Atherosclerotic heart disease of [place] coronary artery without angina pectoris (7) AAA (abdominal aortic aneurysm) Current Visit: Yes Status: Acute Assessment and plan: Retroperitoneum U/S AAA is now 3.8 cm, previous CT from this year 3.3 cm. Current guidelines recommend 1 year F/U Qualifiers: Qualified Code(s): I71.4 - Abdominal aortic aneurysm, without rupture - Subjective Interval history: Ms Benavides is a 76 yo F on day 1 of admission 2/2 acute on CKD, and acute exacerbation of COPD w/ hx of CKD4, COPD, AAA, CAD, Dementia, [facility]. Today she reports feeling much better. She denies SOB, cough, CP, f/c/n/v - Constitutional Vitals: Temp Pulse Resp BP Pulse Ox 97.6 F 87 16 157/89 92 02/26/17 17:06 02/27/17 00:35 02/27/17 07:40 02/27/17 00:35 02/27/17 07:40 General appearance: Present: A&O X 0, mild distress - Respiratory Respiratory exam: Present: wheezes (mild diffuse wheezes on expiration.) - Cardiovascular Cardiovascular exam: Present: RRR, +S1, +S2. Absent: diastolic murmur, gallop, rubs, systolic murmur - GI/Abdominal GI/Abdominal exam: Present: normal bowel sounds, soft, no peritoneal signs. Absent: distended, tenderness - Neurological Exam Neurological exam: Present: alert (oriented to place, and person. not oriented to time) - Psychiatric Psychiatric exam: Present: normal affect, normal mood Internal Medicine: Result - Labs CBC & Chem 7: 02/25/17 21:54 02/25/17 21:54 Consult Discharge Plan - Plan Referrals: Ross Resendez DO [Primary Care Provider] - ([facility] <Carlos Del Rosario - Last Filed: 02/27/17 14:39> Date of Encounter: 02/27/17 - Constitutional Vitals: Temp Pulse Resp BP Pulse Ox 97.6 F 87 16 157/89 92 02/26/17 17:06 02/27/17 00:35 02/27/17 11:01 02/27/17 00:35 02/27/17 11:01 Internal Medicine: Result - Labs CBC & Chem 7: 02/25/17 21:54 02/25/17 21:54 - Attending Attestation I examined this patient and my medical decision-making was reviewed with the Resident Physician. I agree with the documented findings, disposition and treatment plan as described except to the extent set forth below. Admitted with COPD exacerbation. She has a background history of dementia. Presently on antibiotics/steroid/bronchodilators. Likely has acute kidney injury secondary to the prerenal cause. Close monitoring.
[2017-02-27] MEDS: Azithromycin 500 MG in D5% in Water 250 ML IVPB SCH (10:31)
[2017-02-27] MEDS: 0.9 % Sodium Chloride 1,000 ML IVC SCH ×2 (10:31→19:16)
[2017-02-27] MEDS: Folic Acid 1 MG TABLET PO SCH (10:32)
[2017-02-27] MEDS: Aspirin Enteric Coated 81 MG Tablet PO SCH (10:32)
[2017-02-27] MEDS: predniSONE 20 MG TABLET PO SCH (10:33)
[2017-02-27] MEDS: Metoprolol XL (24 HR) Succ 50 MG TAB.ER.24H PO SCH (10:33)
--- NOTE | 2017-02-27 17:05 | Electrocardiograph Report ---
[place] [id number] Test Date: 2017-02-25 Pat Name: Anjelica Benavides Department: 102 Room: 2A13 Gender: F Shift Mgr: Jocelyn : 1940 Requested By: Vaishnavi Esquivel Order Number: [id number] Reading MD: Tenzin Canales MD Measurements Intervals [place] Rate: 99 P: 40 OK: 176 QRS: -7 QRSD: 109 T: 85 QT: 312 QTc: 368 Interpretive Statements SINUS RHYTHM LEFT VENTRICULAR HYPERTROPHY AND ST-T CHANGE Electronically Signed On 02-27-2017 17:03:41 EDT by Tenzin Canales MD
[2017-02-28] MEDS: Ipratropium/Albuterol Neb 3 ML IH SCH ×3 (00:12→07:35)
[2017-02-28 01:54] LABS: Mean Corpuscular HGB Conc 31.3 g/dL (31.6-35.5); Mean Corpuscular Hemoglobin 29.2 pg (28.0-33.3); Mean Corpuscular Volume 93.2 fL (83.0-100.0); Mean Platelet Volume 10.9 fL (9.4-12.4); Platelet Count 318 K/mcL (140-400); Red Blood Count 3.22 M/mcL (3.82-4.97); Red Cell Distribution Width 16.6 % (11.5-14.5)
[2017-02-28 01:55] LABS: Hemoglobin 9.4 g/dL (11.5-15.4)
[2017-02-28 02:05] LABS: Calcium 9.8 mg/dL (8.6-10.8); Potassium 4.4 mEq/L (3.5-4.5)
[2017-02-28] MEDS: *HR* Heparin 5,000 UNIT/ML VIAL SQ SCH (05:30)
[2017-02-28] MEDS ORDERED: Levofloxacin 500 MG/100 ML 500 MG/100 ML BAG IVPB SCH (06:00)
[2017-02-28 08:18] VITALS: BP 170/87
--- NOTE | 2017-02-28 08:43 | Discharge Summary ---
<Yogi Morejon - Last Filed: 02/28/17 11:37> Date of Encounter: 02/28/17 Time of Encounter: 08:35 - Discharge Diagnosis (1) Acute exacerbation of chronic obstructive airways disease Priority: Primary Status: Acute (2) Acute on chronic renal failure Priority: Secondary Status: Acute Qualifiers: Chronic kidney disease stage: stage 4 (severe) Qualified Code(s): N17.9 - Acute kidney failure, unspecified; N18.4 - Chronic kidney disease, stage 4 ( severe) (3) Anemia Priority: Secondary Status: Chronic Qualifiers: Anemia type: unspecified type Qualified Code(s): D64.9 - Anemia, unspecified (4) Dementia Priority: Secondary Status: Acute Qualifiers: Dementia type: Alzheimer's disease Alzheimer's disease onset: other onset Dementia behavioral disturbance: without behavioral disturbance Qualified Code(s): G30.8 - Other Alzheimer's disease; F02.80 - Dementia in other diseases classified elsewhere without behavioral disturbance (5) DVT prophylaxis Priority: Secondary Status: Acute (6) CAD (coronary artery disease) Priority: Secondary Status: Chronic Qualifiers: Coronary Disease-Associated Artery/Lesion type: [place] artery [place] vs. transplanted heart: [place] heart Associated angina: without angina Qualified Code(s): I25.10 - Atherosclerotic heart disease of [place] coronary artery without angina pectoris (7) AAA (abdominal aortic aneurysm) Priority: Secondary Status: Acute Qualifiers: Qualified Code(s): I71.4 - Abdominal aortic aneurysm, without rupture - Discharge Medications Prescriptions: Azithromycin [Zithromax Tri-Rashawn] 500 mg PO QAM #5 tablet Home Medications: Calcitriol [Rocaltrol] 0.5 mcg PO QAM 04/28/15 [History] Ergocalciferol (VITAMIN D2) [Vitamin D2 (50,000 UNIT)] 50,000 unit PO QWEEK [History] Nitroglycerin [Nitrostat] 0.4 mg SL Q5M PRN 04/28/15 [History] Ipratropium/Albuterol Neb [Duoneb] 3 ml IH Q4HR PRN 12/23/15 [History] Folic Acid 1 mg PO DAILY #30 tablet 01/10/16 [Rx] Cyanocobalamin (B-12) [Vitamin B12] 1,000 mcg IM QMONTH #12 vial 11/18/16 [Rx] Aspirin Enteric Coated [Aspirin EC] 81 mg PO DAILY 11/19/16 [History] Oxygen 2 l .ROUTE AD 11/19/16 [History] Simvastatin [Zocor] 40 mg PO HS 11/19/16 [History] Tizanidine HCl 4 mg PO HS PRN 11/19/16 [History] Metoprolol XL (24 HR) Succ [Toprol Xl] 50 mg PO DAILY #30 tab.er.24h 11/24/16 [ Rx] Pantoprazole Sodium [Protonix] 40 mg PO DAILY #30 granpkt.dr 11/24/16 [Rx] Budesonide/Formoterol 160/4.5 [Symbicort 160/4.5] 2 puff IH BID 02/26/17 [ History] Lactobacillus Acidophilus [Acidophilus] 1 cap PO BID 02/26/17 [History] Pregabalin [Lyrica] 50 mg PO BID 02/26/17 [History] Tolterodine Tartrate [Detrol] 1 mg PO BID 02/26/17 [History] Venlafaxine [Effexor] 37.5 mg PO BID 02/26/17 [History] hydrALAZINE [HydrALAZINE] 25 mg PO BID 02/26/17 [History] Azithromycin [Zithromax Tri-Rashawn] 500 mg PO QAM #5 tablet 02/28/17 [Rx] Allergies/Adverse Reactions: 3 Allergy/AdvReac Type Severity Reaction Status Date / Time amlodipine AdvReac See Verified 02/26/17 13:02 Comments clonazepam [From Klonopin] AdvReac See Verified 02/26/17 13:02 Comments ferrous sulfate AdvReac Heartburn Verified 02/26/17 13:02 prasugrel [From Effient] AdvReac See Verified 02/26/17 13:02 Comments Date of admission: 02/26/17 10:01 Primary care physician: Ross Resendez DO Consults: 02/28/17 07:03 Consult to Occupational Therapy [CONS] Routine Comment: Evaluate, develop and implement POC Reason for Consult: eval for ECF Consult to Physical Therapy [CONS] Routine Comment: Evaluate, develop and implement POC Reason for Consult: eval for ECF - Patient Status Disposition: Transfer SNF Condition: Good Overall status at discharge: patient is back to baseline - Discharge Instructions Follow Up With: Ross Resendez DO [Primary Care Provider] - (patient is from [facility]) - Diet and Activity Activity: increase activity as tolerated Hospital course: Ms. Benavides is a 76 year old female admitted for acute kidney injury on CKD, and acute exacerbation of COPD w/ hx of CKD4, COPD, AAA, CAD, Dementia, lives in [facility]. acute exacerbation of COPD course included CXR showed no infiltrates, placed on azithromycin, Prednison 40 mg, duoneb, O2 support PRN. RADHA on CKD4 course Cr on admission 4.15, she was then placed on IVF in the ED, Renal U/S displayed no hydronephrosis, Both kidneys demonstrate increased cortical echogenicity and there is mild right renal atrophy, chronic medical renal disease, and moderate postvoid urinary residual. Patient was found to be anemic upon admission with hgb 7.6, she was transfused with 2 units PRBC which improved hgb to 9.4, and no active signs of bleeding were identified on physical exam - Time Spent with Patient Total time spent providing and/or coordinating discharge services: - Constitutional Vitals: Temp Pulse Resp BP Pulse Ox 97.4 F L 103 18 170/87 95 02/28/17 08:17 02/28/17 08:17 02/28/17 08:17 02/28/17 08:17 02/28/17 08:17 General appearance: Present: A&O X 2 (patient alert and oriented to person and place), mild distress - Head Head exam: Present: atraumatic, normocephalic - Respiratory Respiratory exam: Present: CTAB. Absent: accessory muscle use, rales, rhonchi, wheezes - Cardiovascular Cardiovascular exam: Present: RRR, +S1, +S2. Absent: diastolic murmur, gallop, rubs, systolic murmur - GI/Abdominal GI/Abdominal exam: Present: normal bowel sounds, soft, no peritoneal signs. Absent: distended, tenderness - Neurological Exam Neurological exam: Present: alert <Carin,Carlos P - Last Filed: 02/28/17 16:31> Date of Encounter: 02/28/17 Date of admission: 02/26/17 10:01 Primary care physician: Ross Resendez DO Consults: 02/28/17 07:03 Consult to Occupational Therapy [CONS] Routine Comment: Evaluate, develop and implement POC Reason for Consult: eval for ECF Consult to Physical Therapy [CONS] Routine Comment: Evaluate, develop and implement POC Reason for Consult: eval for ECF Hospital course: Ms. Benavides is a 76 year old female - Time Spent with Patient Total time spent providing and/or coordinating discharge services: - Constitutional Vitals: Temp Pulse Resp BP Pulse Ox 97.4 F L 103 18 170/87 95 02/28/17 08:17 02/28/17 08:17 02/28/17 08:17 02/28/17 08:17 02/28/17 09:38 - Attending Attestation I examined this patient and my medical decision-making was reviewed with the Resident Physician. I agree with the documented findings, disposition and treatment plan as described except to the extent set forth below.
[2017-02-28] MEDS ORDERED: levoFLOXacin 500 MG TABLET PO SCH (09:00)
--- NOTE | 2017-02-28 09:19 | Physician Discharge Referral ---
<Yogi Morejon - Last Filed: 02/28/17 09:17> ExtendedCare Referral Info Transfer To: [facility] Provider in Charge after Transfer: PCP Institutional Level of Care: Intermediate - Diagnosis (1) Acute exacerbation of chronic obstructive airways disease Status: Acute (2) Acute on chronic renal failure Status: Acute (3) Anemia Status: Chronic (4) Dementia Status: Acute (5) DVT prophylaxis Status: Acute (6) CAD (coronary artery disease) Status: Chronic (7) AAA (abdominal aortic aneurysm) Status: Acute - Transfer Medications Prescriptions: Azithromycin [Zithromax Tri-Rashawn] 500 mg PO QAM #5 tablet Home Medications: Calcitriol [Rocaltrol] 0.5 mcg PO QAM 04/28/15 [History] Ergocalciferol (VITAMIN D2) [Vitamin D2 (50,000 UNIT)] 50,000 unit PO QWEEK [History] Nitroglycerin [Nitrostat] 0.4 mg SL Q5M PRN 04/28/15 [History] Ipratropium/Albuterol Neb [Duoneb] 3 ml IH Q4HR PRN 12/23/15 [History] Folic Acid 1 mg PO DAILY #30 tablet 01/10/16 [Rx] Cyanocobalamin (B-12) [Vitamin B12] 1,000 mcg IM QMONTH #12 vial 11/18/16 [Rx] Aspirin Enteric Coated [Aspirin EC] 81 mg PO DAILY 11/19/16 [History] Oxygen 2 l .ROUTE AD 11/19/16 [History] Simvastatin [Zocor] 40 mg PO HS 11/19/16 [History] Tizanidine HCl 4 mg PO HS PRN 11/19/16 [History] Metoprolol XL (24 HR) Succ [Toprol Xl] 50 mg PO DAILY #30 tab.er.24h 11/24/16 [ Rx] Pantoprazole Sodium [Protonix] 40 mg PO DAILY #30 granpkt.dr 11/24/16 [Rx] Budesonide/Formoterol 160/4.5 [Symbicort 160/4.5] 2 puff IH BID 02/26/17 [ History] Lactobacillus Acidophilus [Acidophilus] 1 cap PO BID 02/26/17 [History] Pregabalin [Lyrica] 50 mg PO BID 02/26/17 [History] Tolterodine Tartrate [Detrol] 1 mg PO BID 02/26/17 [History] Venlafaxine [Effexor] 37.5 mg PO BID 02/26/17 [History] hydrALAZINE [HydrALAZINE] 25 mg PO BID 02/26/17 [History] Azithromycin [Zithromax Tri-Rashawn] 500 mg PO QAM #5 tablet 02/28/17 [Rx] Allergies/Adverse Reactions: 3 Allergy/AdvReac Type Severity Reaction Status Date / Time amlodipine AdvReac See Verified 02/26/17 13:02 Comments clonazepam [From Klonopin] AdvReac See Verified 02/26/17 13:02 Comments ferrous sulfate AdvReac Heartburn Verified 02/26/17 13:02 prasugrel [From Effient] AdvReac See Verified 02/26/17 13:02 Comments - Respiratory Orders Smoking Cessation: Smoking cessation has been advised. For more information, call the [facility] Quit Line at 0-471-TGIA-NOW. CERTIFICATION: I certify that the transfer of the above named patient to an Extended Care Facility is necessary for the continuing treatment of the diagnosis listed. The above information is true and accurate reflection of patient's current condition. Confidential - Redisclosure prohibited without a patient's written consent. <Carlos Del Rosario P - Last Filed: 02/28/17 16:31> - Respiratory Orders Smoking Cessation: Smoking cessation has been advised. For more information, call the [facility] Quit Line at 1-917-BEGQ-NOW. CERTIFICATION: I certify that the transfer of the above named patient to an Extended Care Facility is necessary for the continuing treatment of the diagnosis listed. The above information is true and accurate reflection of patient's current condition. Confidential - Redisclosure prohibited without a patient's written consent.
[2017-02-28] MEDS: Aspirin Enteric Coated 81 MG Tablet PO SCH (09:20)
[2017-02-28] MEDS: predniSONE 20 MG TABLET PO SCH (09:20)
[2017-02-28] MEDS: Folic Acid 1 MG TABLET PO SCH (09:20)
[2017-02-28] MEDS: Metoprolol XL (24 HR) Succ 50 MG TAB.ER.24H PO SCH (09:20)
[2017-02-28] MEDS: Azithromycin 500 MG in D5% in Water 250 ML IVPB SCH (09:21)
[2017-02-28 09:23] LABS: Magnesium 2.1 mg/dL (1.6-2.6)
[2017-02-28 09:39] LABS: Basophils % 0.3 %; Eosinophils # 0.1 K/mcL (0.0-0.6); Eosinophils % 0.8 %; Immature Granulocytes % 1.2 % (0-4); Lymphocytes # 1.4 K/mcL (0.6-4.6); Lymphocytes % 11.9 %; Monocytes % 8.1 %; Neutrophils # 9.2 K/mcL (1.6-8.9); Segmented Neutrophils % 77.7 %
== END 2017-02-28 11:00 | DRG 191 ==
LOC: 2ANU 21:21 → EMEROO 21:21 → 2ANU 02-26 02:57
PROVIDERS: ADMIT Pediatrics; ATTEND Internal Medicine

== ENCOUNTER 2017-06-20 03:10 | Inpatient (IN) ==
[2017-06-20] MEDS ORDERED: 0.9 % Sodium Chloride 1,000 ML IVC ONE (03:13)
[2017-06-20 03:25] LABS: Basophils % 0.3 %; Eosinophils % 0.1 %; Hematocrit 31.1 % (35.3-44.9); Hemoglobin 10.1 g/dL (11.5-15.4); Immature Granulocytes % 0.4 % (0-4); Lymphocytes # 0.7 K/mcL (0.6-4.6); Lymphocytes % 7.1 %; Mean Corpuscular HGB Conc 32.5 g/dL (31.6-35.5); Mean Corpuscular Hemoglobin 31.1 pg (28.0-33.3); Mean Corpuscular Volume 95.7 fL (83.0-100.0); Mean Platelet Volume 10.9 fL (9.4-12.4); Monocytes # 0.6 K/mcL (0.0-1.3); Monocytes % 6.5 %; Neutrophils # 8.2 K/mcL (1.6-8.9); Platelet Count 223 K/mcL (140-400); Red Blood Count 3.25 M/mcL (3.82-4.97); Red Cell Distribution Width 14.4 % (11.5-14.5); Segmented Neutrophils % 85.6 %
--- NOTE | 2017-06-20 03:31 | Emergency Department Note ---
Disposition Clinical Impression: Septic shock Acute on chronic kidney failure Qualifiers: Acute renal failure type: unspecified Chronic kidney disease stage: unspecified stage Qualified Code(s): N17.9 - Acute kidney failure, unspecified CHF exacerbation Qualifiers: Congestive heart failure type: systolic Qualified Code(s): I50.23 - Acute on chronic systolic (congestive) heart failure Hypotension Qualifiers: Hypotension type: unspecified hypotension type Qualified Code(s): I95.9 - Hypotension, unspecified Pneumonia Qualifiers: Pneumonia type: due to unspecified organism Laterality: right Lung location: lower lobe of lung Qualified Code(s): J18.1 - Lobar pneumonia, unspecified organism Pulmonary edema Qualifiers: Chronicity: acute Qualified Code(s): J81.0 - Acute pulmonary edema Disposition: Admitted As Inpatient Condition: Undetermined Time of Disposition: 05:16 Altered Mental Status HPI - General Chief Complaint: ED Altered Mental Status Stated Complaint: AMS/UTI Time Seen by Provider: 06/20/17 03:12 Source: EMS Mode of arrival: EMS Limitations: altered mental status Nursing Notes Reviewed: Yes Vital Signs Reviewed: Yes - History of Present Illness HPI Narrative: 76-year-old female who is apparently baseline alert and oriented 3 from a nursing facility arrives to the emergency department alteration in mentation. There was an apparent concern for possible pneumonia with the patient was started on Levaquin today. The patient arrives to the emergency Department altered and unable to answer questions. She is following some commands and will say her name but she is unable to answer any other questions. The patient has a very foul smelling odor to her current where the patient was apparently incontinent in route. Patient also has course breath sounds bilaterally on auscultation of her lungs. The patient was mildly hypotensive with systolic blood pressure in the upper 90s. She was not tachycardic and not hypoxic in route. MD complaint: altered mental status Onset (ago): unknown Pain Scale: 0 Treatments prior to arrival: oxygen - Related Data Home Medications Medication Instructions Recorded Confirmed Calcitriol [Rocaltrol] 0.5 mcg PO QAM 04/28/15 02/26/17 Ergocalciferol (VITAMIN D2) 50,000 unit PO QWEEK 04/28/15 02/26/17 [Vitamin D2 (50,000 UNIT)] Nitroglycerin [Nitrostat] 0.4 mg SL Q5M PRN 04/28/15 02/26/17 Ipratropium/Albuterol Neb [Duoneb] 3 ml IH Q4HR PRN 12/23/15 02/26/17 Aspirin Enteric Coated [Aspirin EC] 81 mg PO DAILY 11/19/16 02/26/17 Oxygen 2 l .ROUTE AD 11/19/16 02/26/17 Simvastatin [Zocor] 40 mg PO HS 11/19/16 02/26/17 Tizanidine HCl 4 mg PO HS PRN 11/19/16 02/26/17 Budesonide/Formoterol 160/4.5 2 puff IH BID 02/26/17 02/26/17 [Symbicort 160/4.5] Lactobacillus Acidophilus 1 cap PO BID 02/26/17 02/26/17 [Acidophilus] Pregabalin [Lyrica] 50 mg PO BID 02/26/17 02/26/17 Tolterodine Tartrate [Detrol] 1 mg PO BID 02/26/17 02/26/17 Venlafaxine [Effexor] 37.5 mg PO BID 02/26/17 02/26/17 hydrALAZINE [HydrALAZINE] 25 mg PO BID 02/26/17 02/26/17 Previous Rx's Medication Instructions Recorded Folic Acid 1 mg PO DAILY #30 tablet 01/10/16 Cyanocobalamin (B-12) [Vitamin B12] 1,000 mcg IM QMONTH #12 vial 11/18/16 Metoprolol XL (24 HR) Succ [Toprol 50 mg PO DAILY #30 tab.er.24h 11/24/16 Xl] Pantoprazole Sodium [Protonix] 40 mg PO DAILY #30 11/24/16 Azithromycin [Zithromax Tri-Rashawn] 500 mg PO QAM #5 tablet 02/28/17 HYDROcodone/Acet 5/325 mg [[place] 1 tab PO Q6H PRN #8 tab 04/11/17 5-325 mg] Allergies Allergy/AdvReac Type Severity Reaction Status Date / Time amlodipine AdvReac See Verified 06/20/17 03:13 Comments clonazepam [From Klonopin] AdvReac See Verified 06/20/17 03:13 Comments ferrous sulfate AdvReac Heartburn Verified 06/20/17 03:13 prasugrel [From Effient] AdvReac See Verified 06/20/17 03:13 Comments Limitations: ROS unobtainable due to patients medical condition Past Medical History - Past Medical History Source: old records reviewed Medical history: Reports: coronary artery disease, hypertension, osteoporosis, renal disease Surgical history: Reports: angioplasty/stent, appendectomy, hysterectomy Psychiatric history: Reports: anxiety, depression - Social History Smoking Status: Former smoker Smokeless Tobacco Status: No Alcohol use: Reports: rarely Drug use: Reports: none Physical Exam - General Limitations: altered mental status General appearance: alert - Head Head exam: atraumatic, normocephalic, normal inspection - Eye Eye exam: Present: normal appearance, PERRL, EOMI - ENT ENT exam: normal exam, normal oropharynx, mucous membranes moist - Neck Neck exam: Present: normal inspection, full ROM, trachea midline - Chest Chest inspection: Present: normal inspection, symmetric chest wall rise - Respiratory Respiratory exam: Present: other (Coarse breath sounds bilaterally) - Cardiovascular Cardiovascular exam: Present: regular rate, normal rhythm, normal heart sounds - Abdominal Exam Abdominal exam: Present: soft, Non-Tender. Absent: tenderness, distention, guarding, rebound, rigidity - Extremities Exam Extremities exam: Present: normal inspection, full ROM. Absent: tenderness, pedal edema Course Vital Signs Temperature 98.4 F 06/20/17 03:13 Pulse Rate 67 06/20/17 03:13 Respiratory Rate 22 06/20/17 03:13 Blood Pressure 78/48 06/20/17 03:13 O2 Sat by Pulse Oximetry 96 06/20/17 03:13 Temperature 98.4 F 06/20/17 03:13 Pulse Rate 70 06/20/17 05:59 Respiratory Rate 30 06/20/17 05:59 Blood Pressure 75/61 06/20/17 05:59 O2 Sat by Pulse Oximetry 96 06/20/17 05:59 Oxygen Delivery Oxygen Delivery Bipap Procedures - Central Line Placement Right IJ Central Line Inserted*: Yes Central Line Insertion: emergent Consent Obtained: verbal consent Procedural Pause: verify patient name and date of , priyanka and assess the site, assemble equipment and verify supplies, perform hand hygiene During the Procedure: clinician is wearing sterile gloves, cap, mask,& gown during insertion, sterile field and sterile technique are maintained, patient's face is covered with drape or mask and wearing a cap, everyone in room is wearing a mask Central Line Prep: Chlorhexidine scrub Prep the Procedure Site: apply chloraprep to the skin using a back and forth scrubbing motion, apply chloraprep for 30 seconds (upper body), 1-2 min ( femoral sites), allow prep to dry, drape the patient with a full body drape Local Anesthetic: lidocaine 1%, with epi Amount of anesthesia used (mL): 3 Ultrasound Used for Placement: Yes Central Line Lumen Inserted: triple Post Procedure: sutured in place, good blood return, all ports aspirated, flushed, capped, sterile dressing applied, guide wire removed and visualized Post Procedure X-Ray: tip of catheter in good position, no pneumothorax seen Patient Tolerated Procedure: well, no complications Complications: none Name of Clinician Inserting Central Line: Teja Clinician Assisting/Completing Checklist: Eden Date: 06/20/17 Time: 04:24 Altered Mental Status - MDM Narrative Medical decision making narrative: Work-up in the emergency department demonstrates right lower lobe pneumonia. The patient was started on vancomycin and Zosyn with concern for septic shock. A central line was placed. The patient was started on dobutamine as well as Levothroid drip. The patient had IV fluids running at 200 mL per hour. The patient was started on BiPAP and not for her respiratory status but for the pulmonary edema. The patient will be admitted to the ICU, accepted by Dr. Krishnan. - Lab Data Lab results reviewed: Yes I reviewed the patient's lab results. Result diagrams: 06/20/17 03:16 06/20/17 03:16 Lab Results 06/20/17 06/20/17 06/20/17 Range/Units 03:16 03:16 03:16 WBC 9.6 (4.3-11.1) K/mcL RBC 3.25 L (3.82-4.97) M/mcL Hgb 10.1 L (11.5-15.4) g/dL Hct 31.1 L (35.3-44.9) % MCV 95.7 (83.0-100.0) fL MCH 31.1 (28.0-33.3) pg MCHC 32.5 (31.6-35.5) g/dL RDW 14.4 (11.5-14.5) % Plt Count 223 (140-400) K/mcL MPV 10.9 (9.4-12.4) fL Immature Gran % 0.4 (0-4) % Seg Neutrophils % 85.6 % Lymphocytes % 7.1 % Monocytes % 6.5 % Eosinophils % 0.1 % Basophils % 0.3 % Neutrophils # 8.2 (1.6-8.9) K/mcL Lymphocytes # 0.7 (0.6-4.6) K/mcL Monocytes # 0.6 (0.0-1.3) K/mcL Eosinophils # 0.0 (0.0-0.6) K/mcL Basophils # 0.0 (0.0-0.2) K/mcL PT 12.0 (9.4-12.1) Seconds INR 1.1 APTT 27.1 (26.0-36.0) Seconds Sodium 138 (136-145) mEq/L Potassium 4.5 (3.5-4.5) mEq/L Chloride 104 (98-109) mEq/L Carbon Dioxide 22 (19-29) mEq/L BUN 41 H (7-20) mg/dL Creatinine 3.85 H (0.57-1.11) mg/dL Est GFR ( Amer) 14 L (> 60) Est GFR (Non-Af Amer) 11 L (> 60) BUN/Creatinine Ratio 11 (6-26) Glucose 134 H (70-99) mg/dL Calculated Osmolality 298 (280-300) Lactic Acid (0.5-2.2) mmol/L Calcium 10.7 (8.6-10.8) mg/dL Magnesium 2.0 (1.6-2.6) mg/dL Total Bilirubin 0.3 (0.2-1.2) mg/dL Direct Bilirubin 0.1 (0.0-0.5) mg/dL Indirect Bilirubin 0.2 (0.0-1.2) mg/dL AST 15 (5-34) Units/L ALT 7 (0-55) Units/L Alkaline Phosphatase 58 (38-126) Units/L Troponin I (0-0.03) ng/mL B-Natriuretic Peptide (0-100) pg/mL Serum Total Protein 6.7 (6.0-8.3) g/dL Albumin 2.8 L (3.5-5.0) g/dL Globulin 3.9 H (2.4-3.5) g/dL Albumin/Globulin Ratio 0.7 L (1.1-2.2) Specimen Rejected 06/20/17 06/20/17 06/20/17 Range/Units 03:16 03:16 03:16 WBC (4.3-11.1) K/mcL RBC (3.82-4.97) M/mcL Hgb (11.5-15.4) g/dL Hct (35.3-44.9) % MCV (83.0-100.0) fL MCH (28.0-33.3) pg MCHC (31.6-35.5) g/dL RDW (11.5-14.5) % Plt Count (140-400) K/mcL MPV (9.4-12.4) fL Immature Gran % (0-4) % Seg Neutrophils % % Lymphocytes % % Monocytes % % Eosinophils % % Basophils % % Neutrophils # (1.6-8.9) K/mcL Lymphocytes # (0.6-4.6) K/mcL Monocytes # (0.0-1.3) K/mcL Eosinophils # (0.0-0.6) K/mcL Basophils # (0.0-0.2) K/mcL PT (9.4-12.1) Seconds INR APTT (26.0-36.0) Seconds Sodium (136-145) mEq/L Potassium (3.5-4.5) mEq/L Chloride (98-109) mEq/L Carbon Dioxide (19-29) mEq/L BUN (7-20) mg/dL Creatinine (0.57-1.11) mg/dL Est GFR ( Amer) (> 60) Est GFR (Non-Af Amer) (> 60) BUN/Creatinine Ratio (6-26) Glucose (70-99) mg/dL Calculated Osmolality (280-300) Lactic Acid 1.6 (0.5-2.2) mmol/L Calcium (8.6-10.8) mg/dL Magnesium (1.6-2.6) mg/dL Total Bilirubin (0.2-1.2) mg/dL Direct Bilirubin (0.0-0.5) mg/dL Indirect Bilirubin (0.0-1.2) mg/dL AST (5-34) Units/L ALT (0-55) Units/L Alkaline Phosphatase (38-126) Units/L Troponin I 0.11 H* (0-0.03) ng/mL B-Natriuretic Peptide 427 H (0-100) pg/mL Serum Total Protein (6.0-8.3) g/dL Albumin (3.5-5.0) g/dL Globulin (2.4-3.5) g/dL Albumin/Globulin Ratio (1.1-2.2) Specimen Rejected 06/20/17 Range/Units 05:01 WBC (4.3-11.1) K/mcL RBC (3.82-4.97) M/mcL Hgb (11.5-15.4) g/dL Hct (35.3-44.9) % MCV (83.0-100.0) fL MCH (28.0-33.3) pg MCHC (31.6-35.5) g/dL RDW (11.5-14.5) % Plt Count (140-400) K/mcL MPV (9.4-12.4) fL Immature Gran % (0-4) % Seg Neutrophils % % Lymphocytes % % Monocytes % % Eosinophils % % Basophils % % Neutrophils # (1.6-8.9) K/mcL Lymphocytes # (0.6-4.6) K/mcL Monocytes # (0.0-1.3) K/mcL Eosinophils # (0.0-0.6) K/mcL Basophils # (0.0-0.2) K/mcL PT (9.4-12.1) Seconds INR APTT (26.0-36.0) Seconds Sodium (136-145) mEq/L Potassium (3.5-4.5) mEq/L Chloride (98-109) mEq/L Carbon Dioxide (19-29) mEq/L BUN (7-20) mg/dL Creatinine (0.57-1.11) mg/dL Est GFR ( Amer) (> 60) Est GFR (Non-Af Amer) (> 60) BUN/Creatinine Ratio (6-26) Glucose (70-99) mg/dL Calculated Osmolality (280-300) Lactic Acid (0.5-2.2) mmol/L Calcium (8.6-10.8) mg/dL Magnesium (1.6-2.6) mg/dL Total Bilirubin (0.2-1.2) mg/dL Direct Bilirubin (0.0-0.5) mg/dL Indirect Bilirubin (0.0-1.2) mg/dL AST (5-34) Units/L ALT (0-55) Units/L Alkaline Phosphatase (38-126) Units/L Troponin I (0-0.03) ng/mL B-Natriuretic Peptide (0-100) pg/mL Serum Total Protein (6.0-8.3) g/dL Albumin (3.5-5.0) g/dL Globulin (2.4-3.5) g/dL Albumin/Globulin Ratio (1.1-2.2) Specimen Rejected Hemolyzed - Radiology Data Radiology results reviewed: Yes I reviewed the patient's radiology results. - EKG Data EKG attestation: Yes I reviewed and interpreted this EKG. EKG results narrative: Heart rate 65 bpm. QTc 388 ms. Normal sinus rhythm. Mild ST depression noted in leads 1, 2, V5, V6. No other acute changes noted. Similar morphology with the exception of new ST changes noted from EKG from 04/10/2017. Critical Care Time Critical Care Time: Yes Total Critical Care Time: 35 Attestation: Critical care performed: Time is exclusive of separately billable procedures. Time includes: direct patient care, patient reassessment, coordination of patient care, interpretation of data (laboratory data, radiology data, and respiratory data), review of patient's medical records, medical consultation and documentation of patient care. Procedures included in critical care time: Procedures excluded from critical care time: CVC in right IJ Attestation Statement - Attestation Attestation: IRoosevelt MD, personally evaluated this patient and discussed their management with the resident physician. I reviewed the resident's note and agree with the documented findings, medical decision making, and plan of care. 76-year-old female sent to the emergency department from a local intermediate for evaluation of altered mental status. Patient was just started on Levaquin yesterday. Tonight she became less responsive and more confused and disoriented. On arrival here the patient is awake and responds to stimuli but unable to answer questions or provide any history or review of systems. On examination patient is a well-developed well-nourished elderly female with altered mental status. There is no cyanosis or diaphoresis. She does appear pale. Chest is nontender to palpation. Breath sounds are equal bilaterally with some scattered bilateral rales. No wheezes noted. Heart regular rate and rhythm. Abdomen is soft with normal bowel sounds. No obvious tenderness. No distention. Labs reviewed. Troponin 0.11. EKG shows some mild ST depression laterally. Chest x-ray shows pulmonary edema with suspected superimposed atelectasis or pneumonia in the right base. A right internal jugular central venous catheter was placed by Dr. Lezama under my direct supervision. The hospitalist, Dr. Feng, was consulted and accepted admission of the patient.
[2017-06-20 03:32] LABS: INR 1.1
[2017-06-20 03:34] LABS: Activated Partial Thrombo Time 27.1 Seconds (26.0-36.0)
[2017-06-20 03:39] LABS: Albumin 2.8 g/dL (3.5-5.0); Albumin/Globulin Ratio 0.7 (1.1-2.2); Bilirubin,Direct 0.1 mg/dL (0.0-0.5); Bilirubin,Indirect 0.2 mg/dL (0.0-1.2); Bilirubin,Total 0.3 mg/dL (0.2-1.2); Calcium 10.7 mg/dL (8.6-10.8); Globulin 3.9 g/dL (2.4-3.5); Potassium 4.5 mEq/L (3.5-4.5); Total Protein 6.7 g/dL (6.0-8.3)
[2017-06-20] MEDS ORDERED: Vancomycin 1,000 MG in D5% in Water 250 ML IVPB ONE (04:30)
[2017-06-20] MEDS ORDERED: Piperacillin/Tazobactam 3.375 GM in Water for inj. (sterile) 20 ML IVP ONE (04:30)
[2017-06-20] MEDS: 0.9 % Sodium Chloride 1,000 ML IVC SCH ×2 (04:50→07:53)
[2017-06-20] MEDS ORDERED: Aspirin 325 MG TABLET PO ONE (05:02)
[2017-06-20] MEDS ORDERED: Ondansetron 4 MG/2 ML VIAL IVP PRN ×2 (05:45→16:43)
[2017-06-20] MEDS ORDERED: Naloxone 0.4 MG/ML INJ IVP PRN (05:45)
[2017-06-20] MEDS ORDERED: NON-FORMULARY MEDICATION 1 EACH EACH (Oxygen [Oxygen] 2 L) SCH (06:00)
[2017-06-20] MEDS ORDERED: Famotidine 20 MG/2 ML VIAL IVP SCH (06:00)
[2017-06-20] MEDS ORDERED: *HR* Heparin 5,000 UNIT/ML VIAL SQ SCH (06:00)
[2017-06-20] MEDS: Norepinephrine 4 MG in D5% in Water 250 ML IVC SCH ×2 (06:47→09:41)
--- NOTE | 2017-06-20 06:47 | Internal Med History&Physical ---
Date of Encounter: 06/20/17 Time of Encounter: 06:20 Assessment and Plan (1) Septic shock Current visit: Yes Status: Acute Septic shock, present on admission - secondary to healthcare associated pneumonia with acute encephalopathy Continue BiPAP, Levophed, Dobutamine Continue IV Zosyn, IV Levaquin, IV Vancomycin, DuoNeb breathing treatment Cultures - pending Chest x-ray - pulmonary edema with right base opacity Lactic acid - 1.6 Troponin - 0.11, cycle troponin BNP - 427 EKG - sinus rhythm with nonspecific ST-T changes Pulmonology consult Cardiac telemetry, labs in a.m., monitor closely (2) CHF exacerbation Current visit: Yes Status: Acute Acute exacerbation of diastolic CHF, LVEF 70% - with history of LVOT obstruction Continue Dobutamine drip, patient is hypotensive Troponin - 0.11, cycle troponin - likely elevated due to demand ischemia BNP - 427 Repeat echocardiogram - pending EKG - sinus rhythm with nonspecific ST-T changes Cardiac telemetry, pulse ox Qualifiers: Congestive heart failure type: diastolic Qualified Code(s): I50.33 - Acute on chronic diastolic (congestive) heart failure (3) Pneumonia Current visit: Yes Status: Acute Right lower lobe healthcare associated pneumonia, present on admission, likely bacterial DuoNeb breathing treatment, IV Zosyn, IV Levaquin, IV Vancomycin Cultures - pending Chest x-ray - pulmonary edema with focal opacity in right base Plan as above Qualifiers: Pneumonia type: due to unspecified organism Laterality: right Lung location: lower lobe of lung Qualified Code(s): J18.1 - Lobar pneumonia, unspecified organism (4) COPD (chronic obstructive pulmonary disease) Current visit: Yes Status: Acute Acute exacerbation of COPD with hypoxia Continue BiPAP, DuoNeb breathing treatment, Symbicort Pulmonology consult Qualifiers: COPD type: COPD with acute exacerbation Qualified Code(s): J44.1 - Chronic obstructive pulmonary disease with (acute) exacerbation (5) Left ventricular outflow tract obstruction Current visit: Yes Status: Chronic Aortic stenosis with subvalvular LVOT obstruction Repeat echocardiogram - pending Patient was started on Metoprolol 50 mg (6) Dementia Current visit: Yes Status: Chronic Moderate to severe dementia without behavioral disturbances Qualifiers: Dementia type: Alzheimer's disease Alzheimer's disease onset: other onset Dementia behavioral disturbance: without behavioral disturbance Qualified Code(s): G30.8 - Other Alzheimer's disease; F02.80 - Dementia in other diseases classified elsewhere without behavioral disturbance (7) CKD (chronic kidney disease) stage 4, GFR 15-29 ml/min Current visit: Yes Status: Chronic Chronic kidney disease stage IV, stable - creatinine and GFR likely at baseline Repeat labs in a.m., monitor closely (8) DVT prophylaxis Current visit: Yes Status: Acute Heparin subcutaneous Internal Medicine - H&P: HPI Chief complaint: Altered mental status Admitted From: Emergency Dept Plans for Post Hospital Care: Transfer [facility] Facility History of present illness: Ms. Benavides is a 76 year old female with past medical history of COPD, chronic kidney disease stage IV, dementia, hypertension, hyperlipidemia, chronic anemia , AAA, CHF and LVOT obstruction. Patient presents to the ED from ECF for altered mental status. Examined in the ICU. Patient is awake, and she is in mild distress. Currently on BiPAP. Able to answer some questions, but unable to provide history. No family members at bedside. Most of the history is obtained from ED records and ECF records. Patient presents from the ECF for altered mental status and increasing confusion. Patient was apparently not acting herself. She was also having difficulty breathing and had coarse breath sounds. Patient was also found to be hypotensive at the ECF. Patient denies chest pain. Unable to obtain much history from her at this time. No other associated symptoms. No acute complaints. Initial workup in the is significant for hypoxia and hypotension. Patient also has elevated BNP and elevated troponin. X-ray reveals right basilar pneumonia. Patient is being admitted for septic shock due to pneumonia and CHF exacerbation. Patient is currently on Levophed and on Dobutamine. No family members at the time of admission. CODE STATUS full code. Past Med Surg Social Fam HX - Past Medical History Medical history: coronary artery disease, hypertension, osteoporosis, renal disease Psychiatric history: anxiety, depression - Past Surgical History Surgical History: angioplasty/stent, appendectomy, hysterectomy - Social History Smoking Status: Former smoker Smokeless Tobacco Status: No Alcohol use: rarely Drug use: none Internal Medicine - H&P: Meds Calcitriol [Rocaltrol] 0.5 mcg PO QAM 04/28/15 [History] Ergocalciferol (VITAMIN D2) [Vitamin D2 (50,000 UNIT)] 50,000 unit PO QWEEK [History] Nitroglycerin [Nitrostat] 0.4 mg SL Q5M PRN 04/28/15 [History] Ipratropium/Albuterol Neb [Duoneb] 3 ml IH Q4HR PRN 12/23/15 [History] Folic Acid 1 mg PO DAILY #30 tablet 01/10/16 [Rx] Cyanocobalamin (B-12) [Vitamin B12] 1,000 mcg IM QMONTH #12 vial 11/18/16 [Rx] Aspirin Enteric Coated [Aspirin EC] 81 mg PO DAILY 11/19/16 [History] Oxygen 2 l .ROUTE AD 11/19/16 [History] Simvastatin [Zocor] 40 mg PO HS 11/19/16 [History] Tizanidine HCl 4 mg PO HS PRN 11/19/16 [History] Metoprolol XL (24 HR) Succ [Toprol Xl] 50 mg PO DAILY #30 tab.er.24h 11/24/16 [ Rx] Pantoprazole Sodium [Protonix] 40 mg PO DAILY #30 11/24/16 [Rx] Budesonide/Formoterol 160/4.5 [Symbicort 160/4.5] 2 puff IH BID 02/26/17 [ History] Lactobacillus Acidophilus [Acidophilus] 1 cap PO BID 02/26/17 [History] Pregabalin [Lyrica] 50 mg PO BID 02/26/17 [History] Tolterodine Tartrate [Detrol] 1 mg PO BID 02/26/17 [History] Venlafaxine [Effexor] 37.5 mg PO BID 02/26/17 [History] hydrALAZINE [HydrALAZINE] 25 mg PO BID 02/26/17 [History] Azithromycin [Zithromax Tri-Rashawn] 500 mg PO QAM #5 tablet 02/28/17 [Rx] HYDROcodone/Acet 5/325 mg [[place] 5-325 mg] 1 tab PO Q6H PRN #8 tab 04/11/17 [Rx] 3 Allergy/AdvReac Type Severity Reaction Status Date / Time amlodipine AdvReac See Verified 06/20/17 03:13 Comments clonazepam [From Klonopin] AdvReac See Verified 06/20/17 03:13 Comments ferrous sulfate AdvReac Heartburn Verified 06/20/17 03:13 prasugrel [From Effient] AdvReac See Verified 06/20/17 03:13 Comments ROS unobtainable: due to mental status All Systems PM: A 10-system review of systems was performed and is negative for pertinent findings except as documented above in the HPI. Review of systems: Patient is currently on BiPAP. Unable to obtain any history from her. All history obtained from ED records and ECF records. - Constitutional Vitals: Temp Pulse Resp BP Pulse Ox 99.4 F 70 30 66/47 96 06/20/17 06:15 06/20/17 06:15 06/20/17 06:15 06/20/17 06:15 06/20/17 06:15 Exam: Patient is drowsy but easily arousable. Patient currently on BiPAP. She is in mild distress. Unable to provide any history. She does answer some questions. - Head Head exam: Present: atraumatic - Eye Eye exam: Present: sclera anicteric - ENT ENT exam: Present: mucous membranes dry - Respiratory Respiratory exam: Present: accessory muscle use, rales (Bilateral coarse), respiratory distress, rhonchi (Bilateral), tachypnea. Absent: chest wall tenderness - Cardiovascular Cardiovascular exam: Present: RRR, +S1, +S2 - GI/Abdominal GI/Abdominal exam: Present: soft. Absent: distended, firm, guarding, tenderness - Extremities Exam Extremities exam: Present: radial pulses palpable and symmetrical. Absent: calf tenderness, cyanotic, pedal edema - Neurological Exam Neurological exam: Absent: facial droop Additional comments: Patient seems drowsy but easily arousable. She is currently on BiPAP. Able to move all extremities. Able to answer some questions. Patient does have history of dementia. Internal Med - H&P Results - Labs CBC & Chem 7: 06/20/17 03:16 06/20/17 03:16
[2017-06-20] MEDS: Ipratropium/Albuterol Neb 3 ML IH SCH ×6 (07:46→23:04)
--- NOTE | 2017-06-20 08:20 | Pulmonology Consult Note ---
<Emeli Williamson - Last Filed: 06/20/17 13:03> Date of Encounter: 06/20/17 Medications and Allergies Calcitriol [Rocaltrol] 0.5 mcg PO QAM 04/28/15 [History] Ergocalciferol (VITAMIN D2) [Vitamin D2 (50,000 UNIT)] 50,000 unit PO QWEEK [History] Nitroglycerin [Nitrostat] 0.4 mg SL Q5M PRN 04/28/15 [History] Ipratropium/Albuterol Neb [Duoneb] 3 ml IH Q4HR PRN 12/23/15 [History] Folic Acid 1 mg PO DAILY #30 tablet 01/10/16 [Rx] Cyanocobalamin (B-12) [Vitamin B12] 1,000 mcg IM QMONTH #12 vial 11/18/16 [Rx] Aspirin Enteric Coated [Aspirin EC] 81 mg PO DAILY 11/19/16 [History] Oxygen 2 l .ROUTE AD 11/19/16 [History] Simvastatin [Zocor] 40 mg PO HS 11/19/16 [History] Tizanidine HCl 4 mg PO HS PRN 11/19/16 [History] Metoprolol XL (24 HR) Succ [Toprol Xl] 50 mg PO DAILY #30 tab.er.24h 11/24/16 [ Rx] Pantoprazole Sodium [Protonix] 40 mg PO DAILY #30 11/24/16 [Rx] Lactobacillus Acidophilus [Acidophilus] 1 cap PO BID 02/26/17 [History] Pregabalin [Lyrica] 50 mg PO BID 02/26/17 [History] Tolterodine Tartrate [Detrol] 1 mg PO BID 02/26/17 [History] hydrALAZINE [HydrALAZINE] 25 mg PO BID 02/26/17 [History] HYDROcodone/Acet 5/325 mg [Fletcher 5-325 mg] 1 tab PO Q6H PRN #8 tab 04/11/17 [Rx] Donepezil [Aricept] 5 mg PO HS 06/20/17 [History] Famotidine [Pepcid] 20 mg PO DAILY 06/20/17 [History] Fluticasone/Vilanterol [Breo Ellipta 200-25 Mcg INH] 1 puff IH DAILY 06/20/17 [ History] Melatonin 5 mg PO HS 06/20/17 [History] carBAMazepine [Tegretol] 200 mg PO BID 06/20/17 [History] levoFLOXacin [Levaquin] 500 mg PO DAILY 06/20/17 [History] 3 Allergy/AdvReac Type Severity Reaction Status Date / Time amlodipine AdvReac See Verified 06/20/17 03:13 Comments clonazepam [From Klonopin] AdvReac See Verified 06/20/17 03:13 Comments ferrous sulfate AdvReac Heartburn Verified 06/20/17 03:13 prasugrel [From Effient] AdvReac See Verified 06/20/17 03:13 Comments All Systems: A 10-system review of systems was performed and is negative for pertinent findings except as documented above in the HPI. Physical Examination Vital Signs: Vital Signs, Last 4 Hours Temp Pulse Resp BP Pulse Ox 06/20/17 12:00 66 26 95/75 98 06/20/17 11:41 98.3 F 06/20/17 11:00 66 26 80/53 99 06/20/17 10:00 73 26 91/51 99 Results - Laboratory Findings CBC and BMP: 06/20/17 03:16 06/20/17 03:16 PT/INR, D-dimer PT 12.0 Seconds (9.4-12.1) 06/20/17 03:16 Abnormal lab findings: Abnormal lab results RBC 3.25 M/mcL (3.82-4.97) L 06/20/17 03:16 Hgb 10.1 g/dL (11.5-15.4) L 06/20/17 03:16 Hct 31.1 % (35.3-44.9) L 06/20/17 03:16 BUN 41 mg/dL (7-20) H 06/20/17 03:16 Creatinine 3.85 mg/dL (0.57-1.11) H 06/20/17 03:16 Est GFR ( Amer) 14 (> 60) L 06/20/17 03:16 Est GFR (Non-Af Amer) 11 (> 60) L 06/20/17 03:16 Glucose 134 mg/dL (70-99) H 06/20/17 03:16 POC Glucose 213 (58-89) H 06/20/17 06:12 Troponin I 0.15 ng/mL (0-0.03) H* 06/20/17 06:35 B-Natriuretic Peptide 427 pg/mL (0-100) H 06/20/17 03:16 Albumin 2.8 g/dL (3.5-5.0) L 06/20/17 03:16 Globulin 3.9 g/dL (2.4-3.5) H 06/20/17 03:16 Albumin/Globulin Ratio 0.7 (1.1-2.2) L 06/20/17 03:16 - Clinical Findings Intake & Output: Intake & Output 06/19/17 06/20/17 06/20/17 23:59 07:59 15:59 Intake Total 650.0 / 867.5 254 / 254 Balance 650.0 / 867.5 254 / 254 Consult Discharge Plan - Plan Referrals: Michael Yanez MD [Primary Care Provider] - - Attending Attestation I examined this patient and my medical decision-making was reviewed with the Resident Physician. I agree with the documented findings, disposition and treatment plan as described except to the extent set forth below. Patient seen and examined. Labs, radiology, chart personally reviewed. 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 Patient is reasonable on noninvasive ventilation and discussed with her daughter who is patient's power of process helper and she is requesting palliative care. ABG was done which was reasonable and is a possibility to be no intubation. Cardiovascular: Patient is in shock and stop Dobutamine, will start Vasopressin and Levophed. GI: Nutrition per dietary and GI prophylaxis per routine Heme: DVT prophylaxis per routine ID: Continue antibiotics and plan to de-escalation Renal; urine out put and renal funtion reviewed Endorcine: blood glucose is monitored Lines: all lines checked and no evidence of infections Skin: skin care to prevent pressure ulcers per nursing routine care I spent 45 min of Critical Care time with this patient. It involved decision making of high complexity to assess, manipulate, and support vital organ system failure and/or to prevent further life threatening deterioration of the patient' s condition. The time involved in the performance of separately reportable procedures was not counted toward critical care time. Sepsis Reassessment Note - Focused Exam Vital Signs: Vital Signs Temp Pulse Resp BP Pulse Ox 06/20/17 12:00 66 26 95/75 98 06/20/17 11:41 98.3 F 06/20/17 11:00 66 26 80/53 99 06/20/17 10:00 73 26 91/51 99 06/20/17 09:00 76 29 123/73 97 06/20/17 08:00 99.4 F 79 29 81/43 97 06/20/17 07:40 25 88/56 97 06/20/17 07:00 68 30 76/58 97 06/20/17 06:15 99.4 F 70 30 66/47 96 06/20/17 06:00 36 94 06/20/17 05:59 70 30 75/61 96 06/20/17 05:46 71 31 77/49 97 06/20/17 05:33 67 32 89/77 95 06/20/17 05:25 70 31 84/71 97 <Aneesh Rivera - Last Filed: 06/20/17 16:32> Date of Encounter: 06/20/17 Time of Encounter: 08:18 Assessment and Plan (1) Septic shock Current Visit: Yes Status: Acute Septic shock, present on admission - secondary to healthcare associated pneumonia with acute encephalopathy Continue BiPAP CVC plaved and Patient is currently maxed on Levophed and was started on Vasopressin. Palliative care consulted Initially patient was full code, after discussion with patient's medical power of process helper, family is requesting comfort care only and withdrawal of care. Pressors and antibiotics as well as BiPAP will be withdrawn. Transfer to 2A unit , will transition to hospice in AM. (2) Pneumonia Current Visit: Yes Status: Acute Started on emperic IV Zosyn, IV Levaquin, IV Vancomycin DuoNeb breathing treatments Cultures - pending Chest x-ray - pulmonary edema with right base opacity Lactic acid - 1.6 --> 1.1 Qualifiers: Pneumonia type: due to unspecified organism Laterality: right Lung location: lower lobe of lung Qualified Code(s): J18.1 - Lobar pneumonia, unspecified organism (3) Acute exacerbation of chronic obstructive airways disease Current Visit: No Status: Acute Started on emperic antibiotics and DuoNeb breathing treatments Bipap. Family is requesting comfort care only and withdrawal of care. (4) CHF exacerbation Current Visit: Yes Status: Acute Rales on exam, elevated BNP 427, CXR with pulmonary edema with suspected superimposed atelectasis or pneumonia in the right base Echo revelas EF 70% Aortic stenosis with subvalvular LVOT obstruction D/c Cardiac telemetry due to DNR-CC status Qualifiers: Congestive heart failure type: diastolic Qualified Code(s): I50.33 - Acute on chronic diastolic (congestive) heart failure (5) Troponin level elevated Current Visit: No Status: Acute EKG - sinus rhythm with nonspecific ST-T changes Serial troponins 0.11 --> 0.15 --> 0.39 Likely demand ischemia due to septic shock (6) CKD (chronic kidney disease) stage 4, GFR 15-29 ml/min Current Visit: Yes Status: Chronic Cautious hydration due to CHF exacerbation Continue to monitor (7) Dementia Current Visit: Yes Status: Chronic Moderate to severe dementia without behavioral disturbances Patient resides in nursing facility Code status changed to DNRCC Transfer out of ICU to palliative care Qualifiers: Dementia type: Alzheimer's disease Alzheimer's disease onset: other onset Dementia behavioral disturbance: without behavioral disturbance Qualified Code(s): G30.8 - Other Alzheimer's disease; F02.80 - Dementia in other diseases classified elsewhere without behavioral disturbance (8) Abdominal aortic aneurysm (AAA) 3.0 cm to 5.0 cm in diameter in female Current Visit: No Status: Chronic (9) Anemia Current Visit: No Status: Chronic Qualifiers: Anemia type: unspecified type Qualified Code(s): D64.9 - Anemia, unspecified (10) DVT prophylaxis Current Visit: Yes Status: Acute Heparin discontinued due to DNRCC status SCDs History of Present Illness Consult date: 06/20/17 Requesting physician: Henry Kaye Reason for consult: COPD, pneumonia Chief complaint: SOB History of present illness: Ms. Benavides is a 76 year old female with past medical history of COPD, CKD stage IV , dementia, hypertension, hyperlipidemia, chronic anemia, AAA, CHF and LVOT obstruction who presented from [facility] due to altered mental status and increasing confusion. Patient is on BiPap now and unable to give HPI. No family members at bedside during initial encounter. History is obtained from ED records and ECF records. Patient was having difficulty breathing, had coarse breath sounds, and found to be hypotensive at the ECF. Initial ED workup was significant for hypoxia and hypotension. Patient also has elevated BNP and elevated troponin. X-ray revealed right basilar pneumonia. Patient was being admitted for septic shock due to pneumonia and CHF exacerbation. Patient is currently maxed on Levophed and was started on Vasopressin. She also reported right hip pain with right hip ROM. Past Med Surg Social Fam HX - Past Medical History Medical history: coronary artery disease, hypertension, osteoporosis, renal disease Psychiatric history: anxiety, depression - Past Surgical History Surgical History: angioplasty/stent, appendectomy, hysterectomy - Social History Smoking Status: Former smoker Smokeless Tobacco Status: No Alcohol use: rarely Drug use: none ROS unobtainable: due to mental status All Systems: A 10-system review of systems was performed and is negative for pertinent findings except as documented above in the HPI. Physical Examination Vital Signs: Vital Signs, Last 4 Hours Temp Pulse Resp BP Pulse Ox 06/20/17 08:00 99.4 F 79 29 81/43 97 06/20/17 07:40 25 88/56 97 06/20/17 07:00 74 32 76/55 96 06/20/17 06:15 99.4 F 70 30 66/47 96 06/20/17 06:00 36 94 06/20/17 05:59 70 30 75/61 96 06/20/17 05:46 71 31 77/49 97 06/20/17 05:33 67 32 89/77 95 06/20/17 05:25 70 31 84/71 97 General appearance: appears uncomfortable, other (wearing bipap) Eyes: nonicteric ENT: oropharynx dry Neck: supple, JVD Effort: mildly labored (tachypnea) Inspection: kyphosis Auscultation: bilateral: rales Percussion: bilateral: not dull Cardiovascular: regular rate and rhythm Gastrointestinal: soft, non-distended Integumentary: other (warm and dry) Extremities: no edema, pulses normal Musculoskeletal: no deformities pupils equal and round, unable to assess due to mental status anxious Results - Laboratory Findings CBC and BMP: 06/20/17 03:16 06/20/17 03:16 PT/INR, D-dimer PT 12.0 Seconds (9.4-12.1) 06/20/17 03:16 Abnormal lab findings: Abnormal lab results RBC 3.25 M/mcL (3.82-4.97) L 06/20/17 03:16 Hgb 10.1 g/dL (11.5-15.4) L 06/20/17 03:16 Hct 31.1 % (35.3-44.9) L 06/20/17 03:16 BUN 41 mg/dL (7-20) H 06/20/17 03:16 Creatinine 3.85 mg/dL (0.57-1.11) H 06/20/17 03:16 Est GFR ( Amer) 14 (> 60) L 06/20/17 03:16 Est GFR (Non-Af Amer) 11 (> 60) L 06/20/17 03:16 Glucose 134 mg/dL (70-99) H 06/20/17 03:16 POC Glucose 213 (58-89) H 06/20/17 06:12 Troponin I 0.15 ng/mL (0-0.03) H* 06/20/17 06:35 B-Natriuretic Peptide 427 pg/mL (0-100) H 06/20/17 03:16 Albumin 2.8 g/dL (3.5-5.0) L 06/20/17 03:16 Globulin 3.9 g/dL (2.4-3.5) H 06/20/17 03:16 Albumin/Globulin Ratio 0.7 (1.1-2.2) L 06/20/17 03:16 - Diagnostic Findings Chest x-ray: report reviewed, image reviewed Additional studies: ITS Impressions Chest X-Ray 06/20/17 03:14 IMPRESSION: Pulmonary edema with suspected superimposed atelectasis or pneumonia in the right base. D/ / Andre Sr MD / Andre Sr MD Interpreting Provider: Andre Sr MD Chest X-Ray 06/20/17 04:14 IMPRESSION: 1. No pneumothorax after line placement. 2. Progressive right basilar airspace disease. D/ / Andre Sr MD / Andre Sr MD Interpreting Provider: Andre Sr MD Echocardiogram 06/20/17 06:59 Impressions: Technically challenging due to suboptimal echocardiographic windows. Patient had difficulty cooperating with exam - respiratory variability and patient motion. LVEF 70%. Moderate to severe increased LV wall thickness, most prominently noted in the LV septum. Systolic anterior motion of the mitral valve leaflets is noted. There is probably a severe outflow tract obstruction by Doppler - however, the LVOT and AV signals are combined, making analysis of the LVOT as well as aortic valve challenging. Indeterminate diastolic function. Normal right ventricular structure and function. Mild aortic regurgitation. Mild mitral regurgitation. Mild tricuspid regurgitation. Mild pulmonary hypertension. Patient chart reviewed - on pressor agents in the ICU. Recommend repeat study when clinical status improves. Left Ventricular Wall Motion: Rest Echo Findings All wall segments showed normal motion. Findings: Study Quality * Technically challenging due to suboptimal echocardiographic windows. Patient had difficulty cooperating with exam - respiratory variability and motion. ECG Findings * Normal sinus rhythm. Left Ventricle * LVEF 70%. * Moderate to severe increased LV wall thickness, most prominent is the LV septum. * Indeterminate diastolic function. Right Ventricle * Normal right ventricular structure and function. Left Atrium * Moderate-severely dilated left atrium. Right Atrium * Normal right atrial size. Aortic Valve * Aortic valve not well visualized. * Mild aortic regurgitation. * Suboptimal Doppler analysis - cannot exclude the presence of aortic stenosis. Mitral Valve * No mitral stenosis. * Mild mitral regurgitation. * Systolic anterior motion (SHAUNA) of the anterior leaflet of the mitral valve is noted. Mixed LVOT and AV signals - probably severe outflow tract obstruction. Tricuspid Valve * Tricuspid valve not well visualized. * Mild tricuspid regurgitation. * Estimated RA pressure is 3 mmHg. * Estimated RVSP is 41 mmHg. * Mild pulmonary hypertension. Pulmonic Valve * Pulmonic valve is not well visualized. * No pulmonic stenosis. * No pulmonic regurgitation. Pulmonary Artery * Pulmonary artery not well visualized. Aorta * Normally sized aortic root. Pericardium * There is no pericardial effusion present. Interatrial Septum * No evidence of PFO by color Doppler. IVC * Normal IVC dimensions and inspiratory collapse. Hip X-Ray 06/20/17 12:01 IMPRESSION: 1. Osteopenia without convincing acute abnormality of the bony pelvis or right hip. 2. Scattered degenerative changes. 3. Atherosclerosis. D/ / Selwyn Parmar MD / Selwyn Parmar MD Interpreting Provider: Selwyn Parmar MD - Clinical Findings Intake & Output: Intake & Output 06/19/17 06/20/17 06/20/17 23:59 07:59 15:59 Intake Total 650.0 / 867.5 Balance 650.0 / 867.5 Sepsis Reassessment Note - Evaluation Sepsis Screen: No Definite Risk Current Stage of Sepsis: septic shock Possible Source of Sepsis: pulmonary - Focused Exam Date of Encounter: 06/20/17 Time of Encounter: 08:18 Vital Signs: Vital Signs Temp Pulse Resp BP Pulse Ox 06/20/17 08:00 99.4 F 79 29 81/43 97 06/20/17 07:40 25 88/56 97 06/20/17 07:00 68 30 76/58 97 06/20/17 06:15 99.4 F 70 30 66/47 96 06/20/17 06:00 36 94 06/20/17 05:59 70 30 75/61 96 06/20/17 05:46 71 31 77/49 97 06/20/17 05:33 67 32 89/77 95 06/20/17 05:25 70 31 84/71 97 Respiratory Exam: Present: rales, respiratory distress, accessory muscle use. Absent: diminished air movement Cardiovascular Exam: Present: RRR Capillary Refill: > 2 seconds Peripheral Pulse Strength: 2+ slightly diminished Peripheral Pulse Location: Radial Skin Exam: normal turgor
[2017-06-20] MEDS ORDERED: Vasopressin 40 UNIT in D5% in Water 100 ML IV SCH (08:30)
[2017-06-20] MEDS ORDERED: Aspirin Enteric Coated 81 MG Tablet PO SCH (09:00)
[2017-06-20] MEDS ORDERED: Levofloxacin 750 MG/150 ML 750 MG/150 ML BAG IVPB SCH (09:00)
[2017-06-20] MEDS ORDERED: Budesonide/Formoterol 160/4.5 MDI IH SCH (10:00)
[2017-06-20] MEDS ORDERED: Aminoglycoside Consult 1 EACH MC ONE (10:52)
[2017-06-20] MEDS ORDERED: *HR* Morphine 2 MG/ML SYRINGE IVP SCH (12:30)
[2017-06-20] MEDS ORDERED: *HR* Morphine 2 MG/ML SYRINGE ONE (12:35)
[2017-06-20] MEDS ORDERED: Norepinephrine 8 MG in D5% in Water 500 ML IVC SCH (12:45)
[2017-06-20] MEDS ORDERED: Piperacillin/Tazobactam 3.375 GM/200 ML BAG IVPB SCH ×2 (13:00)
[2017-06-20] MEDS ORDERED: *HR* Morphine 2 MG/ML SYRINGE IVP PRN (13:22)
[2017-06-20] MEDS ORDERED: Haloperidol Lactate 5 MG/ML VIAL IVP PRN ×2 (13:25→16:43)
[2017-06-20] MEDS ORDERED: *HR* LORazepam 2 MG/ML VIAL IVP PRN (13:27)
--- NOTE | 2017-06-20 13:39 | Palliative - Consult Note ---
Date of Encounter: 06/20/17 Time of Encounter: 12:50 - Assessment and Plan (1) Acute exacerbation of chronic obstructive airways disease Current Visit: No Status: Acute Assessment and plan: Currently on BiPAP. Family is asking for everything to be withdrawn. Will get extra medication and then switched to nasal cannula. (2) Goals of care, counseling/discussion Current Visit: Yes Status: Acute Assessment and plan: Initially full code, after discussion with patient's medical power of document review attorney, she is requesting comfort care only and withdrawal of care. This will be accomplished. Pressors and antibiotics as well as BiPAP will be withdrawn when the rest of the family is here patient will then go comfort care dishing out to the 2A floor, if the patient is still with us in the morning that we will transition to hospice. (3) Dyspnea Current Visit: No Status: Acute Qualifiers: Dyspnea type: shortness of breath Qualified Code(s): R06.02 - Shortness of breath; R06.00 - Dyspnea, unspecified; R06.01 - Orthopnea (4) Troponin level elevated Current Visit: No Status: Acute Assessment and plan: Considered to be demand ischemia, patient is quite hypotensive and requiring pressors. These will be withdrawn which should decrease the amount of myocardial oxygen requirement. (5) Renal insufficiency Current Visit: No Status: Acute Assessment and plan: family is requesting DC of aggressive care. Continue to watch. (6) Pneumonia Current Visit: Yes Status: Acute Assessment and plan: Agent has been on treatment for this, however at this point in time family wishes to withdraw treatment we will therefore assist with doing so. Qualifiers: Pneumonia type: due to unspecified organism Laterality: right Lung location: lower lobe of lung Qualified Code(s): J18.1 - Lobar pneumonia, unspecified organism (7) UTI (urinary tract infection) Current Visit: Yes Status: Acute Assessment and plan: Per family and by history. However there is no urine to confirm this. Qualifiers: Urinary tract infection type: acute cystitis Hematuria presence: without hematuria Qualified Code(s): N30.00 - Acute cystitis without hematuria Palliative-CN HPI - Data of Consult Patient: new to practice Requesting Physician: Henry Kaye Primary Care Provider: Michael Yanez MD - Consult Narrative Palliative Care/Comfort Measures: Palliative care History of present illness: Ms. Benavides is a 76 year old female With dementia, she is currently living at [facility] [place] he went initially for AB after a fall months ago since then her kidney functions been getting worse as her as has had her dementia. Last GFR prior to coming in the hospital was down to 10 and she has no diabetes. I find this weekend until yesterday when she slid out of the chair no injury, this morning however she was found to have pneumonia and shock also requiring 2 pressors for blood pressure.. Currently on BiPAP and tolerating it reasonably well. 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 At this time they wish for withdrawal of care. The patient is not able to rate pain or [place] how she is doing with breathing. She is on BiPAP. All history is obtained from the family. CC: Henry Smith-Dars[facility] Past Med Surg Social Fam HX - Past Medical History Medical history: coronary artery disease, hypertension, osteoporosis, renal disease Psychiatric history: anxiety, depression - Past Surgical History Surgical History: angioplasty/stent, appendectomy, hysterectomy - Social History Smoking Status: Former smoker Smokeless Tobacco Status: No Alcohol use: rarely Drug use: none Medications and Allergies Calcitriol [Rocaltrol] 0.5 mcg PO QAM 04/28/15 [History] Ergocalciferol (VITAMIN D2) [Vitamin D2 (50,000 UNIT)] 50,000 unit PO QWEEK [History] Nitroglycerin [Nitrostat] 0.4 mg SL Q5M PRN 04/28/15 [History] Ipratropium/Albuterol Neb [Duoneb] 3 ml IH Q4HR PRN 12/23/15 [History] Folic Acid 1 mg PO DAILY #30 tablet 01/10/16 [Rx] Cyanocobalamin (B-12) [Vitamin B12] 1,000 mcg IM QMONTH #12 vial 11/18/16 [Rx] Aspirin Enteric Coated [Aspirin EC] 81 mg PO DAILY 11/19/16 [History] Oxygen 2 l .ROUTE AD 11/19/16 [History] Simvastatin [Zocor] 40 mg PO HS 11/19/16 [History] Tizanidine HCl 4 mg PO HS PRN 11/19/16 [History] Metoprolol XL (24 HR) Succ [Toprol Xl] 50 mg PO DAILY #30 tab.er.24h 11/24/16 [ Rx] Pantoprazole Sodium [Protonix] 40 mg PO DAILY #30 granpkt.dr 11/24/16 [Rx] Lactobacillus Acidophilus [Acidophilus] 1 cap PO BID 02/26/17 [History] Pregabalin [Lyrica] 50 mg PO BID 02/26/17 [History] Tolterodine Tartrate [Detrol] 1 mg PO BID 02/26/17 [History] hydrALAZINE [HydrALAZINE] 25 mg PO BID 02/26/17 [History] HYDROcodone/Acet 5/325 mg [[place] 5-325 mg] 1 tab PO Q6H PRN #8 tab 04/11/17 [Rx] Donepezil [Aricept] 5 mg PO HS 06/20/17 [History] Famotidine [Pepcid] 20 mg PO DAILY 06/20/17 [History] Fluticasone/Vilanterol [Breo Ellipta 200-25 Mcg INH] 1 puff IH DAILY 06/20/17 [ History] Melatonin 5 mg PO HS 06/20/17 [History] carBAMazepine [Tegretol] 200 mg PO BID 06/20/17 [History] levoFLOXacin [Levaquin] 500 mg PO DAILY 06/20/17 [History] 3 Allergy/AdvReac Type Severity Reaction Status Date / Time amlodipine AdvReac See Verified 06/20/17 03:13 Comments clonazepam [From Klonopin] AdvReac See Verified 06/20/17 03:13 Comments ferrous sulfate AdvReac Heartburn Verified 06/20/17 03:13 prasugrel [From Effient] AdvReac See Verified 06/20/17 03:13 Comments ROS unobtainable: due to mental status Palliative Care-Exam - Constitutional Vitals: Temp Pulse Resp BP Pulse Ox 98.3 F 67 30 99/75 98 06/20/17 11:41 06/20/17 13:00 06/20/17 13:00 06/20/17 13:00 06/20/17 13:00 General appearance: Present: no acute distress - Head Head Exam: Present: atraumatic, normal inspection - Eye Eye exam: Present: normal appearance - ENT ENT exam: Present: mucous membranes moist - Neck Neck exam: Present: normal inspection - Respiratory Respiratory exam: Present: rhonchi, tachypnea - Cardiovascular Cardiovascular exam: Present: irregular rhythm, tachycardia - GI/Abdominal Exam GI/Abdominal exam: Present: normal bowel sounds, soft. Absent: tenderness - Catheter Type: Urethral (Jovel) - Extremities Exam Extremities exam: Present: pedal edema. Absent: tenderness - Neurological Exam Neurological exam: Present: altered - Psychiatric Psychiatric exam: Absent: agitated, anxious - Skin Skin exam: Present: dry, warm Internal Medicine - CN: Reslt - Labs CBC & Chem 7: 06/20/17 03:16 06/20/17 03:16 Labs: Cardiac Enzymes 06/20/17 06/20/17 Range/Units 06:35 12:35 Troponin I 0.15 H* 0.39 H* (0-0.03) ng/mL - ABG Interpretation ABG results: PT/INR, D-dimer PT 12.0 Seconds (9.4-12.1) 06/20/17 03:16 - Impressions Impressions Echocardiogram 06/20/17 06:59 Impressions: Technically challenging due to suboptimal echocardiographic windows. Patient had difficulty cooperating with exam - respiratory variability and patient motion. LVEF 70%. Moderate to severe increased LV wall thickness, most prominently noted in the LV septum. Systolic anterior motion of the mitral valve leaflets is noted. There is probably a severe outflow tract obstruction by Doppler - however, the LVOT and AV signals are combined, making analysis of the LVOT as well as aortic valve challenging. Indeterminate diastolic function. Normal right ventricular structure and function. Mild aortic regurgitation. Mild mitral regurgitation. Mild tricuspid regurgitation. Mild pulmonary hypertension. Patient chart reviewed - on pressor agents in the ICU. Recommend repeat study when clinical status improves. Left Ventricular Wall Motion: Rest Echo Findings All wall segments showed normal motion. Findings: Study Quality * Technically challenging due to suboptimal echocardiographic windows. Patient had difficulty cooperating with exam - respiratory variability and motion. ECG Findings * Normal sinus rhythm. Left Ventricle * LVEF 70%. * Moderate to severe increased LV wall thickness, most prominent is the LV septum. * Indeterminate diastolic function. Right Ventricle * Normal right ventricular structure and function. Left Atrium * Moderate-severely dilated left atrium. Right Atrium * Normal right atrial size. Aortic Valve * Aortic valve not well visualized. * Mild aortic regurgitation. * Suboptimal Doppler analysis - cannot exclude the presence of aortic stenosis. Mitral Valve * No mitral stenosis. * Mild mitral regurgitation. * Systolic anterior motion (SHAUNA) of the anterior leaflet of the mitral valve is noted. Mixed LVOT and AV signals - probably severe outflow tract obstruction. Tricuspid Valve * Tricuspid valve not well visualized. * Mild tricuspid regurgitation. * Estimated RA pressure is 3 mmHg. * Estimated RVSP is 41 mmHg. * Mild pulmonary hypertension. Pulmonic Valve * Pulmonic valve is not well visualized. * No pulmonic stenosis. * No pulmonic regurgitation. Pulmonary Artery * Pulmonary artery not well visualized. Aorta * Normally sized aortic root. Pericardium * There is no pericardial effusion present. Interatrial Septum * No evidence of PFO by color Doppler. IVC * Normal IVC dimensions and inspiratory collapse. Hip X-Ray 06/20/17 12:01 IMPRESSION: 1. Osteopenia without convincing acute abnormality of the bony pelvis or right hip. 2. Scattered degenerative changes. 3. Atherosclerosis. D/ / Selwyn Parmar MD / Selwyn Parmar MD Interpreting Provider: Selwyn Parmar MD Consult Discharge Plan - Plan Referrals: Michael Yanez MD [Primary Care Provider] - Palliative Quality Palliative Quality: Screen for Code Status: Yes, Screen for Goals of Care: Yes, Screen for Pain: Yes, If Pain Regimen Started, Initiate Bowel Regimen: Yes, Screen for Nausea/Vomitting: Yes Code Status: 06/20/17 05:45 Resuscitation Status: Active [RES] Routine Comment: Resuscitation Status: Full Code 06/20/17 13:21 Resuscitation Status: Active [RES] Routine Comment: Resuscitation Status: DNR-Comfort Care
--- NOTE | 2017-06-20 15:53 | Electrocardiograph Report ---
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
--- NOTE | 2017-06-20 15:55 | Electrocardiograph Report ---
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
[2017-06-20] MEDS ORDERED: Vancomycin 1,000 MG in D5% in Water 250 ML IVPB SCH (17:00)
[2017-06-20] MEDS: *HR* Morphine 2 MG/ML SYRINGE IVP PRN ×2 (17:16→20:58)
[2017-06-20] MEDS: *HR* LORazepam 2 MG/ML VIAL IVP PRN ×3 (17:17→22:48)
[2017-06-20] MEDS: Budesonide/Formoterol 160/4.5 MDI IH SCH (19:54)
[2017-06-21] MEDS: Ipratropium/Albuterol Neb 3 ML IH SCH ×2 (03:51→07:24)
[2017-06-21 07:08] VITALS: BP 75/39
[2017-06-21] MEDS: Budesonide/Formoterol 160/4.5 MDI IH SCH (07:24)
[2017-06-21] MEDS ORDERED: Pantoprazole 40 MG VIAL IVP SCH (07:30)
[2017-06-21] MEDS: *HR* Morphine 2 MG/ML SYRINGE IVP PRN ×2 (08:13→10:51)
[2017-06-21] MEDS ORDERED: Atropine Sulfate 1% 40 DROP/2 ML BOTTLE SL PRN (09:02)
[2017-06-21] MEDS ORDERED: Scopolamine Patch 1.5 MG PATCH.TD72 TD SCH (09:15)
--- NOTE | 2017-06-21 09:24 | Discharge Summary ---
Date of Encounter: 06/21/17 Time of Encounter: 09:30 - Discharge Diagnosis (1) Septic shock Priority: Primary Status: Acute (2) CKD (chronic kidney disease) stage 4, GFR 15-29 ml/min Priority: Primary Status: Chronic (3) CHF exacerbation Priority: Primary Status: Acute Qualifiers: Congestive heart failure type: diastolic Qualified Code(s): I50.33 - Acute on chronic diastolic (congestive) heart failure - Discharge Medications Home Medications: Calcitriol [Rocaltrol] 0.5 mcg PO QAM 04/28/15 [History] Ergocalciferol (VITAMIN D2) [Vitamin D2 (50,000 UNIT)] 50,000 unit PO QWEEK [History] Nitroglycerin [Nitrostat] 0.4 mg SL Q5M PRN 04/28/15 [History] Ipratropium/Albuterol Neb [Duoneb] 3 ml IH Q4HR PRN 12/23/15 [History] Folic Acid 1 mg PO DAILY #30 tablet 01/10/16 [Rx] Cyanocobalamin (B-12) [Vitamin B12] 1,000 mcg IM QMONTH #12 vial 11/18/16 [Rx] Aspirin Enteric Coated [Aspirin EC] 81 mg PO DAILY 11/19/16 [History] Oxygen 2 l .ROUTE AD 11/19/16 [History] Simvastatin [Zocor] 40 mg PO HS 11/19/16 [History] Tizanidine HCl 4 mg PO HS PRN 11/19/16 [History] Metoprolol XL (24 HR) Succ [Toprol Xl] 50 mg PO DAILY #30 tab.er.24h 11/24/16 [ Rx] Pantoprazole Sodium [Protonix] 40 mg PO DAILY #30 granpkt. 11/24/16 [Rx] Lactobacillus Acidophilus [Acidophilus] 1 cap PO BID 02/26/17 [History] Pregabalin [Lyrica] 50 mg PO BID 02/26/17 [History] Tolterodine Tartrate [Detrol] 1 mg PO BID 02/26/17 [History] hydrALAZINE [HydrALAZINE] 25 mg PO BID 02/26/17 [History] HYDROcodone/Acet 5/325 mg [[place] 5-325 mg] 1 tab PO Q6H PRN #8 tab 04/11/17 [Rx] Donepezil [Aricept] 5 mg PO HS 06/20/17 [History] Famotidine [Pepcid] 20 mg PO DAILY 06/20/17 [History] Fluticasone/Vilanterol [Breo Ellipta 200-25 Mcg INH] 1 puff IH DAILY 06/20/17 [ History] Melatonin 5 mg PO HS 06/20/17 [History] carBAMazepine [Tegretol] 200 mg PO BID 06/20/17 [History] levoFLOXacin [Levaquin] 500 mg PO DAILY 06/20/17 [History] Allergies/Adverse Reactions: 3 Allergy/AdvReac Type Severity Reaction Status Date / Time amlodipine AdvReac See Verified 06/20/17 03:13 Comments clonazepam [From Klonopin] AdvReac See Verified 06/20/17 03:13 Comments ferrous sulfate AdvReac Heartburn Verified 06/20/17 03:13 prasugrel [From Effient] AdvReac See Verified 06/20/17 03:13 Comments Procedures/tests Complete & Pending: Procedures Performed prior 72 hours Category Date Time Status ECG 12 lead ECG [ECG] AM 0600 Y 06/20/17 06:00 Completed EV echocardiogram Routine Y 06/20/17 06:59 Completed Date of admission: 06/20/17 05:20 Primary care physician: Michael Yanez MD Consults: 06/20/17 05:49 Consult to Pulmonology [CONS] Routine Consulting Provider: [facility] Reason for Consult: hypotension, chf, copd Call Completed: No 06/20/17 05:53 Consult for Pharmacy Education [CONS] Routine Reason for Consult: Vancomycin and Levaquin dosing Call Completed: No 06/20/17 12:29 Consult to Palliative Care [CONS] Stat Comment: Consulting Provider: [facility] [place] Reason for Consult: daughter request Call Completed: No - Patient Status Disposition: Hospice - Medical Facility Condition: Critical Overall status at discharge: patient is not back to baseline - Discharge Instructions Follow Up With: Michael Yanez MD [Primary Care Provider] - - Diet and Activity Activity: other Diet: other Hospital course: Ms. Benavides is a 76 year old female with past medical history of COPD, chronic kidney disease stage IV, dementia, hypertension, hyperlipidemia, chronic anemia , AAA, CHF and LVOT obstruction. Patient presents to the ED from [facility] for altered mental status. She was admitted for septic shock secondary to pneumonia. She also had some CHF exacerbation. She was admitted to the ICU and required multiple pressors. This continued for about a day to 2 days. Eventually palliative medicine were involved and the family decided to go with comfort care. She is transitioned to hospice on 06/21 2017. - Time Spent with Patient Total time spent providing and/or coordinating discharge services: - Constitutional Vitals: Temp Pulse Resp BP Pulse Ox 98.5 F 79 22 75/39 91 06/21/17 06:59 06/21/17 06:59 06/21/17 06:59 06/21/17 06:59 06/21/17 06:59 Exam: GEN: comfortable CVS: RRR. S1, S2, No m/r/g RESP: diminished. coarse throughout ABD: Soft, NT, ND, +BS EXT: No edema. 2+ DP, No rashes NEURO: lethargic
[2017-06-21] MEDS ORDERED: *HR* FentaNYL PATCH 12 MCG PATCH TD SCH (09:30)
--- NOTE | 2017-06-21 10:47 | Palliative Progress Note ---
<Eduardo Desai - Last Filed: 06/21/17 10:45> Date of Encounter: 06/21/17 Time of Encounter: 08:30 - Assessment and plan (1) Acute exacerbation of chronic obstructive airways disease Status: Acute Assessment and plan: Patient on nasal cannula (2) Dyspnea Status: Acute Assessment and plan: Morphine for comfort. Fentanyl patch added for long lasting pain control. Qualifiers: Dyspnea type: shortness of breath Qualified Code(s): R06.02 - Shortness of breath; R06.00 - Dyspnea, unspecified; R06.01 - Orthopnea (3) Cardiac enzymes elevated Status: Acute Assessment and plan: Medications discontinued. Comfort measures only. (4) Copious oral secretions Status: Acute Assessment and plan: Atropine and scopolamine added at daughter's request. (5) Goals of care, counseling/discussion Status: Acute (6) Pneumonia Status: Acute Assessment and plan: Antibiotics discontinued. Comfort measures only. Qualifiers: Pneumonia type: due to unspecified organism Laterality: right Lung location: lower lobe of lung Qualified Code(s): J18.1 - Lobar pneumonia, unspecified organism (7) UTI (urinary tract infection) Status: Acute Assessment and plan: Antibiotics discontinued. Comfort measures only. Qualifiers: Urinary tract infection type: acute cystitis Hematuria presence: without hematuria Qualified Code(s): N30.00 - Acute cystitis without hematuria (8) Renal insufficiency Status: Acute Assessment and plan: Comfort measures only. - Time Spent With Patient Total time spent is greater than 50% in coordination of care (as documented) at patient's floor/unit and/or counseling patient: - Subjective Interval history: Patient moved to palliative floor. On comfort medications only. Daughter is bothered by increasing rattle and states that patient does grimace in apparent pain occasionally. - Constitutional Vitals: Abnormal lab results RBC 3.25 M/mcL (3.82-4.97) L 06/20/17 03:16 Hgb 10.1 g/dL (11.5-15.4) L 06/20/17 03:16 Hct 31.1 % (35.3-44.9) L 06/20/17 03:16 BUN 41 mg/dL (7-20) H 06/20/17 03:16 Creatinine 3.85 mg/dL (0.57-1.11) H 06/20/17 03:16 Est GFR ( Amer) 14 (> 60) L 06/20/17 03:16 Est GFR (Non-Af Amer) 11 (> 60) L 06/20/17 03:16 Glucose 134 mg/dL (70-99) H 06/20/17 03:16 POC Glucose 213 (58-89) H 06/20/17 06:12 Troponin I 0.39 ng/mL (0-0.03) H* 06/20/17 12:35 B-Natriuretic Peptide 427 pg/mL (0-100) H 06/20/17 03:16 Albumin 2.8 g/dL (3.5-5.0) L 06/20/17 03:16 Globulin 3.9 g/dL (2.4-3.5) H 06/20/17 03:16 Albumin/Globulin Ratio 0.7 (1.1-2.2) L 06/20/17 03:16 - Head Head exam: Present: atraumatic, normal inspection, normocephalic - ENT ENT exam: Present: mucous membranes moist - Respiratory Respiratory exam: Present: rhonchi, tachypnea - Cardiovascular Cardiovascular exam: Present: irregular rhythm, tachycardia - GI/Abdominal GI/Abdominal exam: Present: diminished bowel sounds, soft - Neurological Exam Neurological exam: Present: altered - Psychiatric Psychiatric exam: Absent: agitated, anxious - Skin Skin exam: Present: dry, warm Palliative Quality Palliative Quality: Screen for Code Status: Yes, Screen for Goals of Care: Yes, Screen for Pain: Yes, If Pain Regimen Started, Initiate Bowel Regimen: Yes, Screen for Nausea/Vomitting: Yes Code Status: 06/20/17 05:45 Resuscitation Status: Active [RES] Routine Comment: Resuscitation Status: Full Code 06/20/17 13:21 Resuscitation Status: Active [RES] Routine Comment: Resuscitation Status: DNR-Comfort Care - Labs CBC & Chem 7: 06/20/17 03:16 06/20/17 03:16 Labs: Laboratory Results - last 24 hr 06/20/17 12:35 Troponin I 0.39 H* - Impressions Impressions Echocardiogram 06/20/17 06:59 Impressions: Technically challenging due to suboptimal echocardiographic windows. Patient had difficulty cooperating with exam - respiratory variability and patient motion. LVEF 70%. Moderate to severe increased LV wall thickness, most prominently noted in the LV septum. Systolic anterior motion of the mitral valve leaflets is noted. There is probably a severe outflow tract obstruction by Doppler - however, the LVOT and AV signals are combined, making analysis of the LVOT as well as aortic valve challenging. Indeterminate diastolic function. Normal right ventricular structure and function. Mild aortic regurgitation. Mild mitral regurgitation. Mild tricuspid regurgitation. Mild pulmonary hypertension. Patient chart reviewed - on pressor agents in the ICU. Recommend repeat study when clinical status improves. Left Ventricular Wall Motion: Rest Echo Findings All wall segments showed normal motion. Findings: Study Quality * Technically challenging due to suboptimal echocardiographic windows. Patient had difficulty cooperating with exam - respiratory variability and motion. ECG Findings * Normal sinus rhythm. Left Ventricle * LVEF 70%. * Moderate to severe increased LV wall thickness, most prominent is the LV septum. * Indeterminate diastolic function. Right Ventricle * Normal right ventricular structure and function. Left Atrium * Moderate-severely dilated left atrium. Right Atrium * Normal right atrial size. Aortic Valve * Aortic valve not well visualized. * Mild aortic regurgitation. * Suboptimal Doppler analysis - cannot exclude the presence of aortic stenosis. Mitral Valve * No mitral stenosis. * Mild mitral regurgitation. * Systolic anterior motion (SHAUNA) of the anterior leaflet of the mitral valve is noted. Mixed LVOT and AV signals - probably severe outflow tract obstruction. Tricuspid Valve * Tricuspid valve not well visualized. * Mild tricuspid regurgitation. * Estimated RA pressure is 3 mmHg. * Estimated RVSP is 41 mmHg. * Mild pulmonary hypertension. Pulmonic Valve * Pulmonic valve is not well visualized. * No pulmonic stenosis. * No pulmonic regurgitation. Pulmonary Artery * Pulmonary artery not well visualized. Aorta * Normally sized aortic root. Pericardium * There is no pericardial effusion present. Interatrial Septum * No evidence of PFO by color Doppler. IVC * Normal IVC dimensions and inspiratory collapse. Hip X-Ray 06/20/17 12:01 IMPRESSION: 1. Osteopenia without convincing acute abnormality of the bony pelvis or right hip. 2. Scattered degenerative changes. 3. Atherosclerosis. D/ / Selwyn Parmar MD / Selwyn Parmar MD Interpreting Provider: Selwyn Parmar MD - ABG Interpretation ABG results: PT/INR, D-dimer PT 12.0 Seconds (9.4-12.1) 06/20/17 03:16 Consult Discharge Plan - Plan Referrals: Michael Yanez MD [Primary Care Provider] - <Alban Graham - Last Filed: 06/21/17 11:25> Date of Encounter: 06/21/17 - Assessment and plan (1) Acute exacerbation of chronic obstructive airways disease Status: Acute (2) Goals of care, counseling/discussion Status: Acute (3) Dyspnea Status: Acute Qualifiers: Dyspnea type: shortness of breath Qualified Code(s): R06.02 - Shortness of breath; R06.00 - Dyspnea, unspecified; R06.01 - Orthopnea (4) Troponin level elevated Status: Acute (5) Renal insufficiency Status: Acute (6) Pneumonia Status: Acute Qualifiers: Pneumonia type: due to unspecified organism Laterality: right Lung location: lower lobe of lung Qualified Code(s): J18.1 - Lobar pneumonia, unspecified organism (7) UTI (urinary tract infection) Status: Acute Qualifiers: Urinary tract infection type: acute cystitis Hematuria presence: without hematuria Qualified Code(s): N30.00 - Acute cystitis without hematuria - Time Spent With Patient Total time spent is greater than 50% in coordination of care (as documented) at patient's floor/unit and/or counseling patient: - Constitutional Vitals: Abnormal lab results RBC 3.25 M/mcL (3.82-4.97) L 06/20/17 03:16 Hgb 10.1 g/dL (11.5-15.4) L 06/20/17 03:16 Hct 31.1 % (35.3-44.9) L 06/20/17 03:16 BUN 41 mg/dL (7-20) H 06/20/17 03:16 Creatinine 3.85 mg/dL (0.57-1.11) H 06/20/17 03:16 Est GFR ( Amer) 14 (> 60) L 06/20/17 03:16 Est GFR (Non-Af Amer) 11 (> 60) L 06/20/17 03:16 Glucose 134 mg/dL (70-99) H 06/20/17 03:16 POC Glucose 213 (58-89) H 06/20/17 06:12 Troponin I 0.39 ng/mL (0-0.03) H* 06/20/17 12:35 B-Natriuretic Peptide 427 pg/mL (0-100) H 06/20/17 03:16 Albumin 2.8 g/dL (3.5-5.0) L 06/20/17 03:16 Globulin 3.9 g/dL (2.4-3.5) H 06/20/17 03:16 Albumin/Globulin Ratio 0.7 (1.1-2.2) L 06/20/17 03:16 - Attending Attestation I examined this patient and my medical decision-making was reviewed with the Resident Physician. I agree with the documented findings, disposition and treatment plan as described except to the extent set forth below. Palliative Quality Code Status: 06/20/17 05:45 Resuscitation Status: Active [RES] Routine Comment: Resuscitation Status: Full Code 06/20/17 13:21 Resuscitation Status: Active [RES] Routine Comment: Resuscitation Status: DNR-Comfort Care - Labs CBC & Chem 7: 06/20/17 03:16 06/20/17 03:16 Labs: Laboratory Results - last 24 hr 06/20/17 12:35 Troponin I 0.39 H* - Impressions Impressions Echocardiogram 06/20/17 06:59 Impressions: Technically challenging due to suboptimal echocardiographic windows. Patient had difficulty cooperating with exam - respiratory variability and patient motion. LVEF 70%. Moderate to severe increased LV wall thickness, most prominently noted in the LV septum. Systolic anterior motion of the mitral valve leaflets is noted. There is probably a severe outflow tract obstruction by Doppler - however, the LVOT and AV signals are combined, making analysis of the LVOT as well as aortic valve challenging. Indeterminate diastolic function. Normal right ventricular structure and function. Mild aortic regurgitation. Mild mitral regurgitation. Mild tricuspid regurgitation. Mild pulmonary hypertension. Patient chart reviewed - on pressor agents in the ICU. Recommend repeat study when clinical status improves. Left Ventricular Wall Motion: Rest Echo Findings All wall segments showed normal motion. Findings: Study Quality * Technically challenging due to suboptimal echocardiographic windows. Patient had difficulty cooperating with exam - respiratory variability and motion. ECG Findings * Normal sinus rhythm. Left Ventricle * LVEF 70%. * Moderate to severe increased LV wall thickness, most prominent is the LV septum. * Indeterminate diastolic function. Right Ventricle * Normal right ventricular structure and function. Left Atrium * Moderate-severely dilated left atrium. Right Atrium * Normal right atrial size. Aortic Valve * Aortic valve not well visualized. * Mild aortic regurgitation. * Suboptimal Doppler analysis - cannot exclude the presence of aortic stenosis. Mitral Valve * No mitral stenosis. * Mild mitral regurgitation. * Systolic anterior motion (SHAUNA) of the anterior leaflet of the mitral valve is noted. Mixed LVOT and AV signals - probably severe outflow tract obstruction. Tricuspid Valve * Tricuspid valve not well visualized. * Mild tricuspid regurgitation. * Estimated RA pressure is 3 mmHg. * Estimated RVSP is 41 mmHg. * Mild pulmonary hypertension. Pulmonic Valve * Pulmonic valve is not well visualized. * No pulmonic stenosis. * No pulmonic regurgitation. Pulmonary Artery * Pulmonary artery not well visualized. Aorta * Normally sized aortic root. Pericardium * There is no pericardial effusion present. Interatrial Septum * No evidence of PFO by color Doppler. IVC * Normal IVC dimensions and inspiratory collapse. Hip X-Ray 06/20/17 12:01
[2017-06-22 07:32] LABS: mecA Methicillin-Resist Gene ***DETECTED*** (Not Detect)
[2017-06-22 07:37] LABS: Acinetobacter baumannii by PCR Not Detected (Not Detect); Candida albicans by PCR Not Detected (Not Detect); Candida glabrata by PCR Not Detected (Not Detect); Candida krusei by PCR Not Detected (Not Detect); Candida parapsilosis by PCR Not Detected (Not Detect); Candida tropicalis by PCR Not Detected (Not Detect); Enterococcus by PCR Not Detected (Not Detect); Escherichia coli by PCR Not Detected (Not Detect); Klebsiella oxytoca by PCR Not Detected (Not Detect); Klebsiella pneumoniae by PCR Not Detected (Not Detect); Pseudomonas aeruginosa by PCR Not Detected (Not Detect); Serratia marcescens by PCR Not Detected (Not Detect); Staphylococcus aureus by PCR Not Detected (Not Detect); Streptococcus agalactiae(B)PCR Not Detected (Not Detect); Streptococcus by PCR Not Detected (Not Detect); Streptococcus pneumoniae PCR Not Detected (Not Detect); Streptococcus pyogenes (A) PCR Not Detected (Not Detect)
== END 2017-06-21 10:53 | disposition hospice, inpatient (51) | DRG 871 ==
LOC: EMEROO 03:10 → ICNU 05:20 → 2ANU 17:45
PROVIDERS: ADMIT Internal Medicine; ATTEND Family Medicine